=== PATIENT | male | born 1955 | race Two or more races ===

== ENCOUNTER 2017-03-21 13:05 | Day surgery (SDC) | payer OTHER ==
[2017-03-21] MEDS ORDERED: NS 500 ML IV ONE (13:06)
[2017-03-21] MEDS ORDERED: MIDAZOLAM 2 MG/2 ML VIAL IVP ONE (13:06)
[2017-03-21] MEDS ORDERED: BENZOCAINE UNIT DOSE SPRAY HURRICAINE MM ONE (13:06)
[2017-03-21] MEDS ORDERED: ATROPINE SULFATE 1 MG/10 ML SYR IVP ONE (13:06)
[2017-03-21] MEDS ORDERED: fentaNYL 100 MCG/2 ML INJ IVP ONE (13:06)
--- NOTE | 2017-03-21 13:26 | CPEKG ---
Heart Rate: 102 RR Interval: 588 QRSD Interval: 88 QT Interval: 356 QTC Interval: 464 QRS [place]: 27 T Wave [place]: 7 EKG Severity - ABNORMAL ECG - EKG Impression: ATRIAL FIBRILLATION, V-RATE 65-146 EKG Impression: PROBABLE INFERIOR INFARCT, AGE INDETERMINATE Electronically Signed By: Terrence Gupta 22-Mar-2017 10:23:57
--- NOTE | 2017-03-21 13:26 | CPEKG ---
Heart Rate: 102 RR Interval: 588 QRSD Interval: 88 QT Interval: 356 QTC Interval: 464 QRS [place]: 27 T Wave [place]: 7 EKG Severity - ABNORMAL ECG - EKG Impression: ATRIAL FIBRILLATION, V-RATE 65-146 EKG Impression: PROBABLE INFERIOR INFARCT, AGE INDETERMINATE Electronically Signed By: Terrence Gupta 22-Mar-2017 10:23:57
--- NOTE | 2017-03-21 13:26 | CPEKG ---
Heart Rate: 102 RR Interval: 588 QRSD Interval: 88 QT Interval: 356 QTC Interval: 464 QRS [place]: 27 T Wave [place]: 7 EKG Severity - ABNORMAL ECG - EKG Impression: ATRIAL FIBRILLATION, V-RATE 65-146 EKG Impression: PROBABLE INFERIOR INFARCT, AGE INDETERMINATE Electronically Signed By: eTrrence Gupta 22-Mar-2017 10:23:57
--- NOTE | 2017-03-21 14:17 | PDCARCONS ---
Cardiology Consult Reason for Consult: Atrial fibrillation. Chief Complaint: Fatigue/atrial fibrillation. Requesting Physician: Dr. Anabelle Winters. History of Present Illness: 61-year-old male who, at his baseline, is healthy. Major medical problems include obesity and GERD. He has had symptoms of fatigue now for about 2 weeks. This has been associated with a sensation of depression and doom. He has not had any chest pain or chest pressure. Earlier this week he had an EGD performed. During the procedure he was noted to be in atrial fibrillation with a rapid ventricular response. He was seen by internal medicine yesterday. He was started on metoprolol and Eliquis. This has improved his overall heart rate controlled although he continues to have symptoms of fatigue. As result, we were called. He was advised to come to the [facility] today. He states that he has not had any symptoms of orthopnea, PND or edema. He has had about a 35 lb weight loss over the last 6 months. This, at this point, is unexplained. Has no fever, chills or sweats. He has no history of obstructive sleep apnea although he has not tested in the past. For the most part he is sedentary. He does walk although has no regularly scheduled exercise program. He has had stress test although this was done about 10 years ago. History Information - Allergies/Home Medication List Allergies/Adverse Reactions: No Known Allergies Allergy (Unverified 03/21/17 13:43) Home Medications: NK [No Known Home Meds] 03/21/17 [Last Taken Unknown] Past Medical History: Obesity, GERD. - Social History Smoking Status: Never smoked Physical Exam Physical Exam: Constitutional: no apparent distress Eyes: PERRL Ears, Nose, Mouth, Throat: moist mucous membranes Cardiovascular: irregularly irregular, No no murmur, rub, or gallop, No systolic murmur, No diastolic murmur, No JVD Peripheral Pulses: 2+: carotid (R), carotid (L) Respiratory: no respiratory distress Gastrointestinal: normoactive bowel sounds, soft, non-tender abdomen Skin: warm Neurologic: AAOx3 Psychiatric: interacting appropriately Lab and Imaging 03/21/17 13:30 PT REJ 03/21/17 13:30 INR REJ 03/21/17 13:30 APTT REJ 03/21/17 13:30 Sodium 142 mEq/L (134-144) 03/21/17 13:30 Potassium 4.1 mEq/L (3.5-5.2) 03/21/17 13:30 Chloride 105 mEq/L (97-110) 03/21/17 13:30 Carbon Dioxide 25 mEq/l (22-31) 03/21/17 13:30 Anion Gap 12 mEq/L (8-16) 03/21/17 13:30 BUN 21 mg/dL (7-23) 03/21/17 13:30 Creatinine 1.2 mg/dL (0.7-1.3) 03/21/17 13:30 Estimated GFR > 60 03/21/17 13:30 Glucose 106 mg/dL (70-100) H 03/21/17 13:30 Calcium 9.5 mg/dL (8.5-10.4) 03/21/17 13:30 Magnesium 2.0 mg/dL (1.6-2.3) 03/21/17 13:30 Visualized and Interpreted Chest x-ray results: No Visualized and Interpreted EKG results: Yes EKG additional interpertation: Atrial fibrillation. Resting heart rate of 110 beats per minute. No ST or T changes. A/P Assessment: 61-year-old male with 2 month history of severe fatigue now found to be in atrial fibrillation initially with rapid ventricular response with more controlled heart rates since beginning metoprolol. He has, appropriately, been started on Eliquis. He has taken 3 doses. The exact contributing factors for his atrial fibrillation or not clear at the present time. He certainly is at high risk for obstructive sleep apnea. He has not had a baseline echocardiogram to exclude valvular heart disease. Plan: 1. We will plan to continue his current medications. 2. He will have a LAUREN/cardioversion today. 3. As an outpatient undergo an overnight oximetry study to evaluate for sleep apnea. 4. He will follow up with me within the next 2-3 weeks after his LAUREN/ cardioversion.
[2017-03-21] MEDS ORDERED: PROPOFOL 200 MG/20 ML VIAL ONE (14:27)
--- NOTE | 2017-03-21 14:40 | PDTEE1 ---
LAUREN Cardioversion Procedure Procedure: electrical cardioversion, transesophageal echo Indications: atrial fibrillation Anticoagulation: eliquis Procedural Details: Pads were placed in anterior-posterior position. LAUREN probe was advanced and standard images obtained. There is no evidence of left atrial or left atrial appendage thrombus. Synchronized cardioversion attempt #1: 200J Results: normal sinus rhythm Conclusions: successful LAUREN cardioversion
--- NOTE | 2017-03-21 14:49 | PDANEPAE ---
ANE History of Present Illness a fib ANE Past Medical History - Cardiovascular History Hx Hypertension: No Hx Arrhythmias: Yes Hx Chest Pain: No Hx Coronary Artery / Peripheral Vascular Disease: No Hx CHF / Valvular Disease: No Hx Palpitations: Yes - Pulmonary History Hx COPD: No Hx Asthma/Reactive Airway Disease: No Hx Recent Upper Respiratory Infection: No Hx Oxygen in Use at Home: No Hx Sleep Apnea: No ANE Review of Systems Review of Systems: ANE Patient History - Allergies Allergies/Adverse Reactions: No Known Allergies Allergy (Unverified 03/21/17 13:43) - Home Medications Home medications: home medication list seen and reviewed Home Medications: NK [No Known Home Meds] 03/21/17 [Last Taken Unknown] - Anes Hx Anes Hx: no prior problems - Smoking Hx Smoking Status: Never smoked ANE Labs/Vital Signs - Labs Result Diagrams: 03/21/17 13:30 - Vital Signs Height: 175.26 cm Weight: 102.512 kg ANE Physical Exam - Airway Neck exam: FROM, short neck Mallampati Score: Class 2 Mouth exam: normal dental/mouth exam - Pulmonary Pulmonary: no respiratory distress - Cardiovascular Cardiovascular: irregularly irregular - ASA Status ASA Status: III ANE Anesthesia Plan Anesthesia Plan: GA with mask Urgent/Emergent Case: [place] completed preop but documented later for safe timely pt care
--- NOTE | 2017-03-21 14:49 | POSTANESTH ---
Post Anesthetic Evaluation Cardiovascular Status: Normal, Stable Respiratory Status: Normal, Stable Level of Consciousness/Mental Status: Can Participate in Eval Pain Control: Adequate, Prn Tx Ordered Nausea/Vomiting Control: Adequate, Prn Tx Ordered Complications Possibly Related to Anesthesia: None Noted
--- NOTE | 2017-03-21 14:58 | CPEKG ---
Heart Rate: 53 RR Interval: 1132 P-R Interval: 188 QRSD Interval: 90 QT Interval: 484 QTC Interval: 455 P [place]: 11 QRS [place]: 22 T Wave [place]: 25 EKG Severity - ABNORMAL ECG - EKG Impression: SINUS RHYTHM EKG Impression: LEFT ATRIAL ABNORMALITY EKG Impression: PROBABLE INFERIOR INFARCT, OLD EKG Impression: CONSIDER POSTERIOR WALL INVOLVEMENT EKG Impression: SINUS RHYTHM HAS REPLACED ATRIAL FIBRILLATION NOTED ON PRIOR ECG Electronically Signed By: Terrence Gupta 22-Mar-2017 10:24:17
--- NOTE | 2017-03-22 13:30 | ECHO ---
[email or web address] [place] [id number] Main: [phone] Fax: Transesophageal Echocardiography Name: MAYRA DICKEY MR#: [id number] Study Date: 03/21/2017 Study Time: 02:24 PM Date of : 1955 Age: 61 year(s) Height: ( ) Weight: ( ) BSA: Gender: Male Examination: LAUREN Indication: pre-cardioversion; r/o clot Image Quality: Contrast: I.V. dose of agitated saline Requested by: Aman Graf Heart Rate: Rhythm: BP: / Procedure Staff Felt Finisher: Irena Vasquez Reading Physician: Aman Graf Requesting Provider: LAUREN Exam Details Contrast: I.V. dose of agitated saline Conclusions: The rhythm is atrial fibrillation. Left ventricle is normal in size. Moderate to severely reduced LV systolic function with an ejection fraction of 30-35% with global left ventricular hypokinesis. Severely dilated left atrium. Spontaneous echo contrast appreciated within the left atrium and left atrial appendage. No evidence of left atrial appendage thrombus. Normal right-sided chamber dimensions and RV function. Morphologically normal-appearing valvular structures. Mild mitral and tricuspid regurgitation. Intact interatrial septum. Immediately following the procedure the patient underwent cardioversion with successful lutheran of sinus rhythm following a single 200 joule shock. Measurements: Chambers Valvular Assessment AV/MV Valvular Assessment TV/PV Normal Normal Normal Name Value Range Name Value Range Name Value Range EF Range: 30-35 % Additional Measurements: Findings: Left Ventricle: Normal size left ventricle. Moderately reduced systolic LV function. The ejection fraction is estimated to be 30-35 %. Left Atrium: The left atrium is moderately to severely dilated. An agitated saline study was performed and was Patient: MAYRA DICKEY Study Date: 03/21/2017 Page 1 of 2 02:24 PM negative for intracardiac shunting. Spontaneous contrast in the left atrium. No thrombus is noted in the left atrium. Left Atrial Appendage: No thrombus in left appendage. Spontaneous contrast is present in the left atrial appendage. Mitral Valve: Mild mitral valve regurgitation is present. Aortic Valve: The aortic valve is tri-leaflet. There is no aortic valve regurgitation. Tricuspid Valve: Trivial to mild tricuspid valve regurgitation. l1n (No Signature Object) Patient: MAYRA DICKEY Study Date: 03/21/2017 Page 2 of 2 02:24 PM [id number]
--- NOTE | 2017-03-22 13:30 | ECHO ---
[email or web address] [place] [id number] Main: [phone] Fax: Transesophageal Echocardiography Name: MAYRA DICKEY MR#: [id number] Study Date: 03/21/2017 Study Time: 02:24 PM Date of : 1955 Age: 61 year(s) Height: ( ) Weight: ( ) BSA: Gender: Male Examination: LAUREN Indication: pre-cardioversion; r/o clot Image Quality: Contrast: I.V. dose of agitated saline Requested by: Aman Graf Heart Rate: Rhythm: BP: / Procedure Staff Front Desk Manager: Irena Vasquez Reading Physician: Aman Graf Requesting Provider: LAUREN Exam Details Contrast: I.V. dose of agitated saline Conclusions: The rhythm is atrial fibrillation. Left ventricle is normal in size. Moderate to severely reduced LV systolic function with an ejection fraction of 30-35% with global left ventricular hypokinesis. Severely dilated left atrium. Spontaneous echo contrast appreciated within the left atrium and left atrial appendage. No evidence of left atrial appendage thrombus. Normal right-sided chamber dimensions and RV function. Morphologically normal-appearing valvular structures. Mild mitral and tricuspid regurgitation. Intact interatrial septum. Immediately following the procedure the patient underwent cardioversion with successful mormonism of sinus rhythm following a single 200 joule shock. Measurements: Chambers Valvular Assessment AV/MV Valvular Assessment TV/PV Normal Normal Normal Name Value Range Name Value Range Name Value Range EF Range: 30-35 % Additional Measurements: Findings: Left Ventricle: Normal size left ventricle. Moderately reduced systolic LV function. The ejection fraction is estimated to be 30-35 %. Left Atrium: The left atrium is moderately to severely dilated. An agitated saline study was performed and was Patient: MAYRA DICKEY Study Date: 03/21/2017 Page 1 of 2 02:24 PM negative for intracardiac shunting. Spontaneous contrast in the left atrium. No thrombus is noted in the left atrium. Left Atrial Appendage: No thrombus in left appendage. Spontaneous contrast is present in the left atrial appendage. Mitral Valve: Mild mitral valve regurgitation is present. Aortic Valve: The aortic valve is tri-leaflet. There is no aortic valve regurgitation. Tricuspid Valve: Trivial to mild tricuspid valve regurgitation. l1n (No Signature Object) Patient: MAYRA DICKEY Study Date: 03/21/2017 Page 2 of 2 02:24 PM [id number]
--- NOTE | 2017-03-22 13:30 | ECHO ---
[email or web address] [place] [id number] Main: [phone] Fax: Transesophageal Echocardiography Name: MAYRA DICKEY MR#: [id number] Study Date: 03/21/2017 Study Time: 02:24 PM Date of : 1955 Age: 61 year(s) Height: ( ) Weight: ( ) BSA: Gender: Male Examination: LAUREN Indication: pre-cardioversion; r/o clot Image Quality: Contrast: I.V. dose of agitated saline Requested by: Aman Graf Heart Rate: Rhythm: BP: / Procedure Staff Quality Project Manager: Irena Vasquez Reading Physician: Aman Graf Requesting Provider: LAUREN Exam Details Contrast: I.V. dose of agitated saline Conclusions: The rhythm is atrial fibrillation. Left ventricle is normal in size. Moderate to severely reduced LV systolic function with an ejection fraction of 30-35% with global left ventricular hypokinesis. Severely dilated left atrium. Spontaneous echo contrast appreciated within the left atrium and left atrial appendage. No evidence of left atrial appendage thrombus. Normal right-sided chamber dimensions and RV function. Morphologically normal-appearing valvular structures. Mild mitral and tricuspid regurgitation. Intact interatrial septum. Immediately following the procedure the patient underwent cardioversion with successful jehovah's witness of sinus rhythm following a single 200 joule shock. Measurements: Chambers Valvular Assessment AV/MV Valvular Assessment TV/PV Normal Normal Normal Name Value Range Name Value Range Name Value Range EF Range: 30-35 % Additional Measurements: Findings: Left Ventricle: Normal size left ventricle. Moderately reduced systolic LV function. The ejection fraction is estimated to be 30-35 %. Left Atrium: The left atrium is moderately to severely dilated. An agitated saline study was performed and was Patient: MAYRA DICKEY Study Date: 03/21/2017 Page 1 of 2 02:24 PM negative for intracardiac shunting. Spontaneous contrast in the left atrium. No thrombus is noted in the left atrium. Left Atrial Appendage: No thrombus in left appendage. Spontaneous contrast is present in the left atrial appendage. Mitral Valve: Mild mitral valve regurgitation is present. Aortic Valve: The aortic valve is tri-leaflet. There is no aortic valve regurgitation. Tricuspid Valve: Trivial to mild tricuspid valve regurgitation. l1n (No Signature Object) Patient: MAYRA DICKEY Study Date: 03/21/2017 Page 2 of 2 02:24 PM [id number]
== END 2017-03-21 15:59 | disposition home or self-care (01) ==
LOC: FCATH 13:05
PROVIDERS: ATTEND Internal Medicine Cardiovascular Disease
PROC: 5A2204Z Restoration of Cardiac Rhythm, Single (ICD-10-PCS; principal; 2017-03-21)
PROC: B245ZZ4 Ultrasonography of Left Heart, Transesophageal (ICD-10-PCS; principal; 2017-03-21)
DX: I48.91 Unspecified atrial fibrillation (principal); R53.83 Other fatigue; K21.9 Gastro-esophageal reflux disease without esophagitis; E66.9 Obesity, unspecified; Z68.33 Body mass index [BMI] 33.0-33.9, adult
CPT/HCPCS: J0461; J2704

== ENCOUNTER 2017-03-22 11:43 | Observation (INO) | payer OTHER ==
--- NOTE | 2017-03-22 12:10 | EDPHY ---
H & P Time Seen by Provider: 03/22/17 11:45 HPI/ROS: CHIEF COMPLAINT: Chest pressure HISTORY OF PRESENT ILLNESS: 61-year-old male with a history of atrial fibrillation status post cardioversion yesterday presents with chest pressure. 2 days ago he was diagnosed with atrial fibrillation with RVR. He was placed on metoprolol and Eliquis. Yesterday he had a LAUREN and cardioversion by Dr. Graf. He felt normal after the procedure and throughout the evening yesterday. However, he woke up this morning and felt that he was in recurrent atrial fibrillation. He has similar symptoms to prior to the cardioversion, that includes chest pressure and feeling of wooziness and dizziness. He saw his primary care physician this morning. In the office his blood pressure was 90/60 and he was in atrial fibrillation with a controlled rate of 87. He was sent here for further evaluation. No food intake this morning. He had a couple sips of water only. REVIEW OF SYSTEMS: Constitutional: 35 lb weight loss recently, no fever Eyes: No visual changes ENT: No sore throat Respiratory: No cough, no shortness of breath Gastrointestinal: No nausea, no vomiting, no abdominal pain Genitourinary: No hematuria, no dysuria Musculoskeletal: No leg pain or swelling Skin: No rash Neurological: No headache Psychiatric: No depression Past Medical/Surgical History: Atrial fibrillation Social History: PCP: Dr. Amaya Smoking Status: Never smoked Physical Exam: General Appearance: Alert, pleasant Eyes: Pupils equal and round, no conjunctival pallor or injection ENT, Mouth: Mucous membranes moist Neck: Normal inspection Respiratory: Lungs are clear to auscultation Cardiovascular: irregularly irregular tachycardia Gastrointestinal: Abdomen is soft and nontender Neurological: A&O, nonfocal exam Skin: Warm and dry, no rash Extremities: trace pedal edema Psychiatric: Mood and affect normal Constitutional: Initial Vital Signs Temperature (C) 36.7 C 03/22/17 11:45 Heart Rate 93 03/22/17 11:45 Respiratory Rate 20 03/22/17 11:45 Blood Pressure 110/61 03/22/17 11:45 O2 Sat (%) 99 03/22/17 11:45 O2 Delivery Mode Room Air O2 (L/minute) 2 Allergies/Adverse Reactions: No Known Allergies Allergy (Verified 03/22/17 11:48) Home Medications: Medication Instructions Recorded Apixaban [Eliquis] 5 mg PO BID 03/22/17 Lisinopril [Zestril 5 mg (*)] 5 mg PO DAILY 03/22/17 Metoprolol Tartrate [Lopressor 25 50 mg PO BID 03/22/17 mg (*)] Medical Decision Making - Diagnostics EKG Interpretation: EKG interpreted by me reveals atrial fibrillation, ventricular rate 111, Q- waves in 3 and AVF. Imaging Results: Imaging Impressions Chest X-Ray 03/22/17 12:05 Impression: No acute pulmonary disease. ED Course/Re-evaluation: This patient presents with recurrent atrial fibrillation with RVR after recent cardioversion. Heart rate 90-130 on satellite project site monitor. EKG reveals atrial fibrillation, with a ventricular rate of 111. No ischemic changes. Doubt ACS. [facility] consulted. Seen in ED by ESTIVEN Molina with [facility]. Plan for IV Amiodarone and admission. Will consult, request hospitalist admission. consider eval for 35lb wt loss during this admission as well. Hospitalist service consulted. Dr. Fiore will admit this pt. Amiodarone IV initiated, pt' s HR 80-100, BP stable. Ativan 1mg IV given for anxiety. Pt stable throughout. Differential Diagnosis: Differential diagnosis includes though it is not limited to pneumonia, pneumothorax, pulmonary embolism, aortic dissection, pericarditis, acute coronary syndrome. - Data Points Laboratory Results: Laboratory Results 03/22/17 12:00 03/22/17 12:00 03/22/17 03/22/17 12:00 12:00 WBC 7.27 10^3/uL 10^3/uL (3.80-9.50) RBC 5.11 10^6/uL 10^6/uL (4.40-6.38) Hgb 16.6 g/dL g/dL (13.7-17.5) Hct 47.2 % % (40.0-51.0) MCV 92.4 fL fL (81.5-99.8) MCH 32.5 pg pg (27.9-34.1) MCHC 35.2 g/dL g/dL (32.4-36.7) RDW 13.4 % % (11.5-15.2) Plt Count 180 10^3/uL 10^3/uL (150-400) MPV 11.1 fL fL (8.7-11.7) Neut % (Auto) 76.3 % H % (39.3-74.2) Lymph % (Auto) 14.9 % L % (15.0-45.0) [place] % (Auto) 7.2 % % (4.5-13.0) Eos % (Auto) 0.8 % % (0.6-7.6) Baso % (Auto) 0.4 % % (0.3-1.7) Nucleat RBC Rel Count 0.0 % % (0.0-0.2) Absolute Neuts (auto) 5.55 10^3/uL 10^3/uL (1.70-6.50) Absolute Lymphs (auto) 1.08 10^3/uL 10^3/uL (1.00-3.00) Absolute Monos (auto) 0.52 10^3/uL 10^3/uL (0.30-0.80) Absolute Eos (auto) 0.06 10^3/uL 10^3/uL (0.03-0.40) Absolute Basos (auto) 0.03 10^3/uL 10^3/uL (0.02-0.10) Absolute Nucleated RBC 0.00 10^3/uL 10^3/uL (0-0.01) Immature Gran % 0.4 % % (0.0-1.1) Immature Gran # 0.03 10^3/uL 10^3/uL (0.00-0.10) Sodium 141 mEq/L mEq/L (134-144) Potassium 4.4 mEq/L mEq/L (3.5-5.2) Chloride 106 mEq/L mEq/L (97-110) Carbon Dioxide 20 mEq/l L mEq/l (22-31) Anion Gap 15 mEq/L mEq/L (8-16) BUN 17 mg/dL mg/dL (7-23) Creatinine 1.0 mg/dL mg/dL (0.7-1.3) Estimated GFR > 60 Glucose 115 mg/dL H mg/dL (70-100) Calcium 9.7 mg/dL mg/dL (8.5-10.4) Troponin I 0.013 ng/mL ng/mL (0.000-0.034) NT-Pro-B Natriuret Pep 779 pg/mL H pg/mL (0-125) Medications Given: Amiodarone HCl (Amiodarone Hcl) 200 mls @ 33.333 mls/hr IV ONCE ONE Stop: 03/22/17 18:33 Last Admin: 03/22/17 13:06 Dose: 200 mls Discontinued Medications Sodium Chloride (Ns) 500 mls @ 1,000 mls/hr IV EDNOW ONE PRN Reason: Protocol Stop: 03/22/17 12:42 Last Admin: 03/22/17 12:20 Dose: 500 mls Sodium Chloride (Ns) 500 mls @ 0 mls/hr IV ONCE ONE PRN Reason: Wide Open Stop: 03/22/17 12:14 Last Admin: 03/22/17 12:20 Dose: Not Given Amiodarone HCl (Amiodarone Hcl) 100 mls @ 600 mls/hr IV ONCE ONE Stop: 03/22/17 12:42 Last Admin: 03/22/17 12:54 Dose: 100 mls Lorazepam (Ativan) 1 mg PO EDNOW ONE Stop: 03/22/17 12:33 Last Admin: 03/22/17 12:52 Dose: 1 mg Departure - Departure Disposition: [facility]
--- NOTE | 2017-03-22 12:10 | CPEKG ---
Heart Rate: 111 RR Interval: 541 QRSD Interval: 86 QT Interval: 368 QTC Interval: 500 QRS [place]: 22 T Wave [place]: 13 EKG Severity - ABNORMAL ECG - EKG Impression: ATRIAL FIBRILLATION EKG Impression: PROBABLE INFERIOR INFARCT, AGE INDETERMINATE EKG Impression: PROLONGED QT INTERVAL Electronically Signed By: Marilu Serna 22-Mar-2017 14:11:05
[2017-03-22] MEDS ORDERED: NS 500 ML IV ONE ×4 (12:13)
[2017-03-22 12:22] LABS: PLATELET COUNT 180 10^3/uL (150-400)
[2017-03-22] MEDS ORDERED: LORazepam 1 MG TAB PO ONE ×2 (12:32)
[2017-03-22] MEDS ORDERED: AMIODARONE HCL 100 ML IV ONE ×2 (12:33)
[2017-03-22] MEDS ORDERED: AMIODARONE HCL 200 ML IV ONE ×2 (12:34)
--- NOTE | 2017-03-22 14:08 | PDCARPN ---
Cardiology Progress Note Chief Complaint: Patient reporting fatigue, lightheadedness. Assessment/Plan: Assessment: Please see Dr. Graf's cardiology consultation note dated 03/21/2017 to be used as our official consultation. 61-year-old male with significant past history that includes obesity, GERD, and ongoing abdominal pain for last 2 months with reported 35 lb weight loss over the last 6 months. Reporting episodes of fatigue with associated symptoms of depression due for her on 2 months. He denies of any history of chest pressure or pain. Patient had been at [facility] on March 19 for EGD. Was noted that he had atrial fibrillation with rapid ventricular response. He had been seen by Dr. Winters at [facility], who had set patient up on beta-blockers , anticoagulation, and set him up for a cardioversion with Dr. Graf yesterday afternoon. LAUREN performed prior to cardioversion, showing LV normal size, moderate to severely reduced systolic function with EF 30-35%, with global LV hypokinesis. Noted severely dilated LA, no evidence of thrombus noted. Normal RV size and dimension, mild MR and TR, intact intra-atrial septum. Patient was successfully cardioverted, with 200 joules, back into sinus rhythm. For his cardiomyopathy, he remained on beta-marco metoprolol tartrate, and Dr. Graf started on lisinopril with scheduled soon follow-up. Patient informs me today, post cardioversion, he felt significantly better, also noting his appetite had improved. Unfortunately, at 5:00 a.m. this morning , waking up with recurring fatigue symptoms, he did take all his medications including new dose of lisinopril. And had been noting lightheadedness. Denies of any near-syncope or syncopal events. Was seen by his PCP, Dr Amaya, after calling in with his symptoms. Was found again to be in atrial fibrillation with ventricular rates varying between 80-130 BPM. It was also noted that his systolic blood pressure was in the low 90s. Patient also reporting decrease in appetite. He reports no nausea, diaphoresis, orthopnea, chest pain, or syncope. Does report mild shortness of breath with exertion. Electrocardiogram on emergency department admission showing showing atrial fibrillation, noted Q-waves in the lead III. This is unchanged from a electrocardiogram prior to his cardioversion done yesterday. Laboratory studies drawn today show troponin level of 0.013 and BNP of 779. He does not appear to be fluid overloaded off my physical examination. Patient has had a recent TSH level drawn on March 19 which was 1.230. LFTs were also within normal limits except total bilirubin which was 1.5. No anemia noted on admission CBC. Plan: 1. Persistent atrial fibrillation: Less than 24 hour status post cardioversion , reverting back into atrial fibrillation with RVR. With discussion of Dr. Graf, recent LAUREN showing no thrombus in atrium, we will have the patient be loaded with IV amiodarone today, if he does not convert overnight, then plan for a cardioversion in the morning. Patient does report that he has been compliant with his anticoagulation since his cardioversion yesterday. He will continue on current Eliquis. Risks and benefits of anticoagulation therapy with amiodarone were explained to the patient and his family, patient verbalizes understanding and is wanting to proceed. Is successful, in keeping him in sinus rhythm, we will plan for him to be on dosage for approximately 3-6 months. Also, with patient's body habitus, consideration for overnight oximetry study for evaluation sleep apnea should be done. This can be done as an outpatient. We will make him NPO after midnight him preparation for procedure if necessary. 2. Cardiomyopathy: LAUREN yesterday showing global hypokinesis with EF of 30-35%. He had been on beta-marco in just recently started WAI-inhibitor. His low ejection fraction is probably due to tachycardia from his atrial fibrillation. Again, we will attempt to convert him back into sinus rhythm, at some point it would be beneficial for him to have stress testing done for evaluation of possible ischemia. Due to high hypotension, we will discontinue his lisinopril at this time, but attempt to continue him on beta-marco of metoprolol. 3. Hypotensive: Noted at PCPs office this morning with systolic at in the 90s , on emergency department admission, systolic 110. As mentioned above, will discontinue his lisinopril. He has been given 500 mL of saline in the emergency department. Will continue to monitor. 4. Abdominal pain: Patient has recently underwent upper EGD at [facility], results are pending. Per Dr. Serna of the emergency department , patient's PCP is concerned and would like this further evaluated during his hospitalization. Patient will be also seen by hospital services. We will plan on following along with you. 11/03/17 14:05 Subjective: Patient denies of any chest pressure or pain, reports no orthopnea, PND, edema, near-syncope or syncopal events. Reviewed/Discussed With: other (Dr Graf and Dr Serna) Objective: Vital Signs (8 Hrs) Temp Pulse Resp BP Pulse Ox 03/22/17 13:51 36.8 C 69 17 105/65 99 03/22/17 13:30 96 18 118/76 100 Intake/Output (24 Hrs) 03/21/17 03/22/17 03/23/17 05:59 05:59 05:59 Other: Weight 102.5 kg Result Diagrams: 03/22/17 12:00 03/22/17 12:00 - Physical Exam Constitutional: no apparent distress, obese Ears, Nose, Mouth, Throat: moist mucous membranes Cardiovascular: no murmurs, no rubs, no gallops, irregularly irregular (AFib with ventricular rate in 80s.), jugular vein distention (4 cm above sternal notch at a 45 degree angle.), pulses symmetric bilat, No carotid bruit Peripheral Pulses: 1+: dorsalis-pedis (R), dorsalis-pedis (L), 2+: carotid (R), carotid (L) Respiratory: other (Lungs are clear but diminished in bases bilateral, no rhonchi, rales, or wheezing noted, no accessory muscle use, no intercostal muscle retraction noted.) Gastrointestinal: normoactive bowel sounds Skin: no rashes, warm, no edema Neurologic: AAOx3 Psychiatric: cooperative, following commands, anxious ICD10 Worksheet Patient Problems: Problems Problem Status Onset Atrial fibrillation Acute - ICD10 Problem Qualifiers (1) Atrial fibrillation
[2017-03-22] MEDS ORDERED: ACETAMINOPHEN 325 MG TAB PO PRN ×2 (14:48)
[2017-03-22] MEDS ORDERED: ONDANSETRON 4 MG/2 ML VIAL IVP PRN ×2 (14:48)
[2017-03-22] MEDS ORDERED: ONDANSETRON DISINTEGRATING 4 MG TAB PO PRN ×2 (14:48)
[2017-03-22] MEDS ORDERED: LORazepam 0.5 MG TAB PO PRN ×2 (14:48)
--- NOTE | 2017-03-22 15:49 | GHP ---
[f rep st] HISTORY AND PHYSICAL DATE OF ADMISSION: 03/22/2017 CHIEF COMPLAINT: Atrial fibrillation. HISTORY OF PRESENT ILLNESS: This is a 61-year-old man who sent in by his PCP for eval of AFib. He has had long-standing abdominal issues which I will detail later. However, this led him to an EGD on March 19. He was found to be in AFib. Sent to see his PCP who started him on metoprolol as well as Eliquis. He was sent for an outpatient cardioversion which was done yesterday by Dr. Graf. This was successful after 200 joules. LAUREN showed an EF of 30% to 35%. This was thought to be due to his tachycardia. He was started on appropriate medicines for this and discharged. He re-presents today after being sent in by his PCP and found again to be in atrial fibrillation. He had some chest heaviness this morning which is improved now. He received some Ativan in the ED. He has had abdominal issues which started earlier in January, which have received some evaluation to this point. Described as difficulty eating due to belching associated with food. He does not really throw up. He has not had any diarrhea. He has some abdominal pain which is diffuse and gassy in nature. This led him to receive an upper endoscopy a few days ago. I do not have the report from the endoscopy. However, I do have his pathology from this. There was a polyp in his duodenum which was biopsied and showed no evidence of dysplasia or malignancy. Second biopsy showed increased intraepithelial lymphocytes with preserved villous architecture. Stomach biopsy showed mild chronic inflammation with moderate reactive changes. It was H pylori negative. He has also seen an ENT doctor for sinus congestion. He had received some antibiotics which did not resolve this. He has tried various nasal sprays. It seems as though he has had the most luck with fluticasone. Laryngoscopy showed an edematous larynx. ENT's recommendation was to take ranitidine. PAST MEDICAL/SURGICAL HISTORY: 1. AFib as above. 2. Cardiomyopathy as above. 3. Abdominal issues as above. 4. Obesity. MEDICATIONS: Please see medication reconciliation. ALLERGIES: There are no known drug allergies. SOCIAL HISTORY: He has never drank alcohol or smoked. FAMILY HISTORY: Reviewed and unremarkable. REVIEW OF SYSTEMS: A 10-point review of systems is conducted and is negative except per HPI. PHYSICAL EXAM: VITAL SIGNS: Blood pressure 105/65, respiration rate 17, heart rate 69-96, saturating 99% on 2 L. Temperature 36.8. GENERAL: The patient is pleasant. He appears somewhat tired lying in bed, in no acute distress. HEENT : Normocephalic, atraumatic. He has no pharyngeal erythema. CARDIOVASCULAR: Irregularly, irregular. There are no murmurs, rubs, or gallops. PULMONARY: Breathing comfortably. Lungs are clear to auscultation bilaterally. ABDOMEN: Soft, nontender, nondistended in all 4 quadrants. He has normal bowel sounds. SKIN: No rash. : No Becerra. NEUROLOGIC: Alert and oriented x3. He is nonfocal. PSYCHIATRIC: Normal mood and affect LABORATORY DATA: CBC is unremarkable. Bicarb is 20. Troponin 0.013. BNP is 779. DATA: 1. Chest x-ray, which I personally viewed and interpreted, shows normal-sized heart. There is nothing acute. 2. ECG, which I personally viewed and interpreted, shows atrial fibrillation. He has a large Q-wave in lead III. He does not have Q-waves, however, in II and F. IMPRESSION AND PLAN: 1. Atrial fibrillation: Cardiology following. He is on amiodarone drip and Eliquis. If he converts overnight, no further action will be taken. If he does not convert, then he will receive DC cardioversion tomorrow morning. 2. Cardiomyopathy: Thought to be tachycardia related. We will defer further workup to Cardiology. He is on beta marco, WAI inhibitor. He is euvolemic. 3. Abdominal issues: Biopsy most consistent with celiac. He does not have any diarrhea, however. I think CAT scan is appropriate, given the polyp seen in his duodenum. Also ordered a celiac panel. We will add simethicone as needed, given his primary complaint of belching and gas. Will continue Pepcid, although he is on ranitidine at home. 4. Sinus issues: Will give him a trial of Zyrtec as well as Atrovent inhaler. CODE STATUS: Full. /[id number]/MODL MTDD
[2017-03-22] MEDS ORDERED: IOPAMIDOL (ISOVUE-300) 100 ML BTL ONE ×2 (16:10)
[2017-03-22] MEDS: CETIRIZINE 10 MG TAB PO SCH ×2 (17:34)
[2017-03-22] MEDS: IPRATROPIUM 0.03% NASAL SPRAY EACHNARE SCH ×4 (17:35→22:43)
[2017-03-22] MEDS: SIMETHICONE 80 MG TAB CHEW PO SCH ×4 (18:48→21:39)
[2017-03-22] MEDS ORDERED: AMIODARONE HCL 540 MG in D5W 300 ML IV ONE (19:00)
[2017-03-22] MEDS ORDERED: IPRATROPIUM 0.03% NASAL SPRAY EACHNARE SCH ×2 (21:00)
[2017-03-22] MEDS: METOPROLOL TARTRATE 25 MG TAB PO SCH ×2 (21:39)
[2017-03-22] MEDS: APIXABAN 5 MG TAB PO SCH ×2 (21:39)
[2017-03-22] MEDS: FAMOTIDINE 20 MG TAB PO SCH ×2 (21:39)
[2017-03-23 05:03] LABS: PLATELET COUNT 154 10^3/uL (150-400)
[2017-03-23] MEDS ORDERED: NS 1,000 ML IV ONE ×2 (06:00)
[2017-03-23] MEDS ORDERED: ATROPINE SULFATE 1 MG/10 ML SYR IVP ONE ×2 (06:00)
[2017-03-23 06:17] LABS: INR 1.71 (0.83-1.16); PROTIME(PATIENT) 20.1 SEC (12.0-15.0)
[2017-03-23 08:39] VITALS: TEMP 97.6; O2SAT 98
[2017-03-23] MEDS: SIMETHICONE 80 MG TAB CHEW PO SCH ×4 (08:43→13:26)
[2017-03-23] MEDS: METOPROLOL TARTRATE 25 MG TAB PO SCH ×2 (08:43)
[2017-03-23] MEDS: CETIRIZINE 10 MG TAB PO SCH ×2 (08:43)
[2017-03-23] MEDS: APIXABAN 5 MG TAB PO SCH ×2 (08:43)
[2017-03-23] MEDS: FAMOTIDINE 20 MG TAB PO SCH ×2 (08:44)
[2017-03-23] MEDS ORDERED: PANTOPRAZOLE SODIUM 40 MG TAB PO SCH ×2 (09:00)
[2017-03-23] MEDS ORDERED: PROPOFOL 200 MG/20 ML VIAL ONE ×2 (11:28)
--- NOTE | 2017-03-23 11:31 | PDCARPN ---
Cardiology Progress Note Chief Complaint: No complaints overnight Assessment/Plan: Assessment: Patient is a 61 y/o male with history of atrial fibrillation, non ischaemic CMP (thought secondary to atrial fibrillation with ejection fraction of 30-35% by most recent LAUREN), obesity, and GERD, but no documented history of HTN, HLP, CAD , or DM, who presents back to [facility] in atrial fibrillation once again. Recent cardioversion was momentarily successful, but given the revisitation of atrial fibrillation, Amiodarone load was implemented. Patient without complaints - no chest pains or pressure, no PND or orthopnea. Patient stating that he is "...feeling pretty good today...". Plans were for patient to have cardioversion again today (with the anticoagulation and antiarrhythmic therapy on board). Plan: (1) Completion of the Amiodarone load - would start PO therapy (200 mg twice per day) (2) Maintain therapy on Eliquis ([id number] score is 2) given recent LAUREN with cardioversion (and pending cardioversion today) (3) Lopressor should continue for HTN and rate control assistance for the noted atrial fibrillation (4) Outpatient follow up with cardiology is recommended - would consider repeat echocardiogram in several weeks (if patient able to maintain sinus rhythm) Subjective: No cardiovascular complaints Reviewed/Discussed With: family, hospitalist, multidisciplinary team Objective: Vital Signs (8 Hrs) Temp Pulse Resp BP Pulse Ox 03/23/17 08:00 36.4 C 86 17 103/73 98 03/23/17 04:00 36.3 C 63 18 104/64 96 Intake/Output (24 Hrs) 03/22/17 03/23/17 03/24/17 05:59 05:59 04:59 Intake Total 1183.6 Balance 1183.6 Intake: Oral (ml) 750 IV Infused (ml) 433.6 Amiodarone HCl 100 ml @ 100 600 mls/hr IV ONCE ONE Rx #:[id number] Amiodarone HCl 200 ml @ 333.6 33.333 mls/hr IV ONCE ONE Rx#:[id number] Other: Weight 102.5 kg Number of Voids Toilet 2 Result Diagrams: 03/23/17 04:08 03/23/17 04:08 Telemetry: atrial fibrillation with controlled ventricular response Echocardiogram: LVEF 30-35% - Physical Exam Constitutional: WDWN, healthy appearing, no apparent distress Eyes: PERRL, EOMI Ears, Nose, Mouth, Throat: moist mucous membranes Cardiovascular: irregularly irregular Peripheral Pulses: 2+: dorsalis-pedis (R), dorsalis-pedis (L) Respiratory: clear to auscultate bilat, no crackles, no wheezes Gastrointestinal: normoactive bowel sounds Skin: no rashes, no edema Musculoskeletal: no muscular tenderness Neurologic: AAOx3, CN II-XII grossly intact Psychiatric: cooperative, interactive, following commands ICD10 Worksheet Patient Problems: Problems Problem Status Onset Atrial fibrillation Acute
--- NOTE | 2017-03-23 11:31 | PDCARPN ---
Cardiology Progress Note Chief Complaint: No complaints overnight Assessment/Plan: Assessment: Patient is a 61 y/o male with history of atrial fibrillation, non ischaemic CMP (thought secondary to atrial fibrillation with ejection fraction of 30-35% by most recent LAUREN), obesity, and GERD, but no documented history of HTN, HLP, CAD , or DM, who presents back to [facility] in atrial fibrillation once again. Recent cardioversion was momentarily successful, but given the revisitation of atrial fibrillation, Amiodarone load was implemented. Patient without complaints - no chest pains or pressure, no PND or orthopnea. Patient stating that he is "...feeling pretty good today...". Plans were for patient to have cardioversion again today (with the anticoagulation and antiarrhythmic therapy on board). Plan: (1) Completion of the Amiodarone load - would start PO therapy (200 mg twice per day) (2) Maintain therapy on Eliquis ([id number] score is 2) given recent LAUREN with cardioversion (and pending cardioversion today) (3) Lopressor should continue for HTN and rate control assistance for the noted atrial fibrillation (4) Outpatient follow up with cardiology is recommended - would consider repeat echocardiogram in several weeks (if patient able to maintain sinus rhythm) Subjective: No cardiovascular complaints Reviewed/Discussed With: family, hospitalist, multidisciplinary team Objective: Vital Signs (8 Hrs) Temp Pulse Resp BP Pulse Ox 03/23/17 08:00 36.4 C 86 17 103/73 98 03/23/17 04:00 36.3 C 63 18 104/64 96 Intake/Output (24 Hrs) 03/22/17 03/23/17 03/24/17 05:59 05:59 04:59 Intake Total 1183.6 Balance 1183.6 Intake: Oral (ml) 750 IV Infused (ml) 433.6 Amiodarone HCl 100 ml @ 100 600 mls/hr IV ONCE ONE Rx #:[id number] Amiodarone HCl 200 ml @ 333.6 33.333 mls/hr IV ONCE ONE Rx#:[id number] Other: Weight 102.5 kg Number of Voids Toilet 2 Result Diagrams: 03/23/17 04:08 03/23/17 04:08 Telemetry: atrial fibrillation with controlled ventricular response Echocardiogram: LVEF 30-35% - Physical Exam Constitutional: WDWN, healthy appearing, no apparent distress Eyes: PERRL, EOMI Ears, Nose, Mouth, Throat: moist mucous membranes Cardiovascular: irregularly irregular Peripheral Pulses: 2+: dorsalis-pedis (R), dorsalis-pedis (L) Respiratory: clear to auscultate bilat, no crackles, no wheezes Gastrointestinal: normoactive bowel sounds Skin: no rashes, no edema Musculoskeletal: no muscular tenderness Neurologic: AAOx3, CN II-XII grossly intact Psychiatric: cooperative, interactive, following commands ICD10 Worksheet Patient Problems: Problems Problem Status Onset Atrial fibrillation Acute
--- NOTE | 2017-03-23 11:31 | PDCARPN ---
Cardiology Progress Note Chief Complaint: No complaints overnight Assessment/Plan: Assessment: Patient is a 61 y/o male with history of atrial fibrillation, non ischaemic CMP (thought secondary to atrial fibrillation with ejection fraction of 30-35% by most recent LAUREN), obesity, and GERD, but no documented history of HTN, HLP, CAD , or DM, who presents back to [facility] in atrial fibrillation once again. Recent cardioversion was momentarily successful, but given the revisitation of atrial fibrillation, Amiodarone load was implemented. Patient without complaints - no chest pains or pressure, no PND or orthopnea. Patient stating that he is "...feeling pretty good today...". Plans were for patient to have cardioversion again today (with the anticoagulation and antiarrhythmic therapy on board). Plan: (1) Completion of the Amiodarone load - would start PO therapy (200 mg twice per day) (2) Maintain therapy on Eliquis ([id number] score is 2) given recent LAUREN with cardioversion (and pending cardioversion today) (3) Lopressor should continue for HTN and rate control assistance for the noted atrial fibrillation (4) Outpatient follow up with cardiology is recommended - would consider repeat echocardiogram in several weeks (if patient able to maintain sinus rhythm) Subjective: No cardiovascular complaints Reviewed/Discussed With: family, hospitalist, multidisciplinary team Objective: Vital Signs (8 Hrs) Temp Pulse Resp BP Pulse Ox 03/23/17 08:00 36.4 C 86 17 103/73 98 03/23/17 04:00 36.3 C 63 18 104/64 96 Intake/Output (24 Hrs) 03/22/17 03/23/17 03/24/17 05:59 05:59 04:59 Intake Total 1183.6 Balance 1183.6 Intake: Oral (ml) 750 IV Infused (ml) 433.6 Amiodarone HCl 100 ml @ 100 600 mls/hr IV ONCE ONE Rx #:[id number] Amiodarone HCl 200 ml @ 333.6 33.333 mls/hr IV ONCE ONE Rx#:[id number] Other: Weight 102.5 kg Number of Voids Toilet 2 Result Diagrams: 03/23/17 04:08 03/23/17 04:08 Telemetry: atrial fibrillation with controlled ventricular response Echocardiogram: LVEF 30-35% - Physical Exam Constitutional: WDWN, healthy appearing, no apparent distress Eyes: PERRL, EOMI Ears, Nose, Mouth, Throat: moist mucous membranes Cardiovascular: irregularly irregular Peripheral Pulses: 2+: dorsalis-pedis (R), dorsalis-pedis (L) Respiratory: clear to auscultate bilat, no crackles, no wheezes Gastrointestinal: normoactive bowel sounds Skin: no rashes, no edema Musculoskeletal: no muscular tenderness Neurologic: AAOx3, CN II-XII grossly intact Psychiatric: cooperative, interactive, following commands ICD10 Worksheet Patient Problems: Problems Problem Status Onset Atrial fibrillation Acute
--- NOTE | 2017-03-23 11:32 | PDANEPAE ---
ANE History of Present Illness 61 yo for dccv afib ef 35% ANE Past Medical History - Cardiovascular History Hx Hypertension: No Hx Arrhythmias: Yes Hx Chest Pain: No Hx Coronary Artery / Peripheral Vascular Disease: No Hx CHF / Valvular Disease: No Hx Palpitations: Yes - Pulmonary History Hx COPD: No Hx Asthma/Reactive Airway Disease: No Hx Recent Upper Respiratory Infection: No Hx Oxygen in Use at Home: No Hx Sleep Apnea: No - Endocrine History Hx Diabetes: No - Chronic Pain History Chronic Pain: No ANE Review of Systems Review of Systems: ANE Patient History - Allergies Allergies/Adverse Reactions: No Known Allergies Allergy (Verified 03/22/17 11:48) - Home Medications Home medications: home medication list seen and reviewed Home Medications: Apixaban [Eliquis] 5 mg PO BID 03/22/17 [Last Taken 03/22/17] Lisinopril [Zestril 5 mg (*)] 5 mg PO DAILY 03/22/17 [Last Taken 03/22/17] Metoprolol Tartrate [Lopressor 25 mg (*)] 50 mg PO BID 03/22/17 [Last Taken 08/03] - Anes Hx Anes Hx: no prior problems - Smoking Hx Smoking Status: Never smoked ANE Labs/Vital Signs - Labs Result Diagrams: 03/23/17 04:08 03/23/17 04:08 - Vital Signs Blood Pressure: 103/73 Heart Rate: 86 Respiratory Rate: 17 O2 Sat (%): 98 Height: 5 ft 9 in Weight: 102.5 kg ANE Anesthesia Plan Anesthesia Plan: GA with mask Total IV Anesthesia: Yes
--- NOTE | 2017-03-23 11:52 | PDCARD ---
Cardioversion Procedure Procedure: Cardioversion (recent LAUREN with cardioversion did not document thrombus, and the patient has been on uninterrupted anticoagulant therapy since this procedure) Indications: atrial fibrillation, cardiomyopathy Consent: signed and in chart Anticoagulation: [email or web address] Procedural Details: Pads were placed to anterior and posterior chest. Monitor with heart rate, oximetry, and blood pressure pre-, kip-, and post cardioversion. Nursing staff , respiratory, and anesthesia were present for the procedure. Anesthesia was used for sedation. Synchronized cardioversion attempt #1: 200J Results: normal sinus rhythm Conclusions: successful cardioversion Patient Problems: Problems Problem Status Onset Atrial fibrillation Acute
--- NOTE | 2017-03-23 11:57 | CPEKG ---
Heart Rate: 42 RR Interval: 1429 P-R Interval: 196 QRSD Interval: 102 QT Interval: 548 QTC Interval: 458 P [place]: 4 QRS [place]: 28 T Wave [place]: 22 EKG Severity - BORDERLINE ECG - EKG Impression: SINUS BRADYCARDIA EKG Impression: PROBABLE LEFT ATRIAL ABNORMALITY EKG Impression: SINUS BRADYCARDIA HAS REPLACED ATRIAL FIBRILLATION NOTED ON PRIOR ECG Electronically Signed By: Terrence Gupta 24-Mar-2017 09:46:09
--- NOTE | 2017-03-23 11:57 | CPEKG ---
Heart Rate: 42 RR Interval: 1429 P-R Interval: 196 QRSD Interval: 102 QT Interval: 548 QTC Interval: 458 P [place]: 4 QRS [place]: 28 T Wave [place]: 22 EKG Severity - BORDERLINE ECG - EKG Impression: SINUS BRADYCARDIA EKG Impression: PROBABLE LEFT ATRIAL ABNORMALITY EKG Impression: SINUS BRADYCARDIA HAS REPLACED ATRIAL FIBRILLATION NOTED ON PRIOR ECG Electronically Signed By: Terrence Gupta 24-Mar-2017 09:46:09
[2017-03-23] MEDS ORDERED: AMIODARONE HCL 200 MG TAB PO SCH ×2 (12:00)
[2017-03-23] MEDS: IPRATROPIUM 0.03% NASAL SPRAY EACHNARE SCH ×4 (12:09→17:12)
--- NOTE | 2017-03-23 12:09 | ASMTCASEMG ---
Living Arrangements What is your living Answers: Unknown arrangement? Who do you live with? Type Of Residence What kind of residence do Answers: House you live in? Case Management Evaluation Functional: Able to Answers: Yes return Home with Prior Level of Function/Care Discharge Plan Comments Coordination Status Comments Notes: Patient to have a cardioversion today 03/23/2017 in room. Will wait to see how he does and progresses. Patient will most likely discharge today, Saturday or Saturday. Case management will continue to follow. Date Signed: 03/23/2017 12:08 PM Electronically Signed By:REGINA Carias
--- NOTE | 2017-03-23 15:03 | GDS ---
[f rep st] DISCHARGE SUMMARY FINAL DIAGNOSES: 1. Atrial fibrillation with rapid ventricular response. Status post DC cardioversion. 2. Nonspecific gastrointestinal issues. 3. Hypertension. 4. Sinus congestion. HOSPITAL COURSE: A 61-year-old man who was admitted with atrial fibrillation with RVR. He has been undergoing workup recently for GI issues including an upper endoscopy. This showed some lymphocytic infiltration in his small intestine concerning for celiac. Celiac panel was sent and is pending at t he time of discharge. He underwent DC cardioversion. After this his GI issues markedly improved. He also underwent an IV amiodarone load. He will be discharged on amiodarone 200 mg p.o. twice daily, metoprolol 25 mg p.o. twice daily and Eliquis 5 mg p.o. twice daily. He had an abdominal CT scan, which showed nonspecific bowel gas pattern, question gastroenteritis. LABORATORY DATA: Labs pending at time of discharge: Celiac panel. NEW MEDICATIONS: 1. Amiodarone. 2. Atrovent for sinus congestion. 3. Decrease in dose of his metoprolol. FOLLOWUP: 1. Dr. Amaya is PCP. 2. Cardiology for ongoing management of his atrial fibrillation. Copy requested to: Dr. Blayne Silva [facility] #: [id number]
[2017-03-23] MEDS ORDERED: PNEUMOCOCCAL 0.5ML VACCINE VIAL IM ONE ×2 (15:20)
[2017-03-23] MEDS ORDERED: FLU VACC QS 2017-18 (3YR+)/PF 0.5 ML SYR (FLUARIX QUAD) IM ONE ×2 (15:20)
[2017-03-23 15:30] VITALS: BP 92/62; PULSE 56; RESP 18
--- NOTE | 2017-03-24 16:40 | ASDISCHSUM ---
Discharge Information Plan Status:Home with No Needs Medically Cleared to Leave:03/23/2017 Discharge Date:03/23/2017 04:54 PM CM D/C Disposition:Home, Routine, Self-Care ADT D/C Disposition:Home, Routine, Self-Care Projected Discharge Date:03/23/2017 12:00 AM Transportation at D/C:Family Discharge Delay Reason: Follow-Up Date:03/23/2017 12:00 AM Discharge Slot: Final Diagnosis:AFIB with RVR Placement Information Patient Contact Information Contact Name:EMELIA Relationship: Address:[address] Work Phone: City:[place] Alternate Phone: State/Zip Code:[place] [address] Email: Financial Information Financial Class:HMO and PPO Plans Primary Plan Desc:[employer] Primary Plan Number:[id number] Secondary Plan Desc: Secondary Plan Number: Assessment Information [facility] Initial CM Assessment Living Arrangements What is your living Answers: Unknown arrangement? Who do you live with? Type Of Residence What kind of residence do Answers: House you live in? Case Management Evaluation Functional: Able to Answers: Yes return Home with Prior Level of Function/Care Discharge Plan Comments Coordination Status Comments Notes: Patient to have a cardioversion today 03/23/2017 in room. Will wait to see how he does and progresses. Patient will most likely discharge today, Saturday or Saturday. Case management will continue to follow. Date Signed: 03/23/2017 12:08 PM Electronically Signed By:REGINA Carais Intervention Information
--- NOTE | 2017-03-24 16:40 | ASDISCHSUM ---
Discharge Information Plan Status:Home with No Needs Medically Cleared to Leave:03/23/2017 Discharge Date:03/23/2017 04:54 PM CM D/C Disposition:Home, Routine, Self-Care ADT D/C Disposition:Home, Routine, Self-Care Projected Discharge Date:03/23/2017 12:00 AM Transportation at D/C:Family Discharge Delay Reason: Follow-Up Date:03/23/2017 12:00 AM Discharge Slot: Final Diagnosis:AFIB with RVR Placement Information Patient Contact Information Contact Name:EMELIA Relationship: Address:[address] Work Phone: City:[place] Alternate Phone: State/Zip Code:[place] [address] Email: Financial Information Financial Class:HMO and PPO Plans Primary Plan Desc:[employer] Primary Plan Number:[id number] Secondary Plan Desc: Secondary Plan Number: Assessment Information [facility] Initial CM Assessment Living Arrangements What is your living Answers: Unknown arrangement? Who do you live with? Type Of Residence What kind of residence do Answers: House you live in? Case Management Evaluation Functional: Able to Answers: Yes return Home with Prior Level of Function/Care Discharge Plan Comments Coordination Status Comments Notes: Patient to have a cardioversion today 03/23/2017 in room. Will wait to see how he does and progresses. Patient will most likely discharge today, Saturday or Saturday. Case management will continue to follow. Date Signed: 03/23/2017 12:08 PM Electronically Signed By:REGINA Carias Intervention Information
--- NOTE | 2017-03-24 16:40 | ASDISCHSUM ---
Discharge Information Plan Status:Home with No Needs Medically Cleared to Leave:03/23/2017 Discharge Date:03/23/2017 04:54 PM CM D/C Disposition:Home, Routine, Self-Care ADT D/C Disposition:Home, Routine, Self-Care Projected Discharge Date:03/23/2017 12:00 AM Transportation at D/C:Family Discharge Delay Reason: Follow-Up Date:03/23/2017 12:00 AM Discharge Slot: Final Diagnosis:AFIB with RVR Placement Information Patient Contact Information Contact Name:EMELIA Relationship: Address:[address] [facility] Work Phone: City:[place] Alternate Phone: State/Zip Code:[place] [address] Email: Financial Information Financial Class:HMO and PPO Plans Primary Plan Desc:[employer] Primary Plan Number:[id number] Secondary Plan Desc: Secondary Plan Number: Assessment Information [facility] Initial CM Assessment Living Arrangements What is your living Answers: Unknown arrangement? Who do you live with? Type Of Residence What kind of residence do Answers: House you live in? Case Management Evaluation Functional: Able to Answers: Yes return Home with Prior Level of Function/Care Discharge Plan Comments Coordination Status Comments Notes: Patient to have a cardioversion today 03/23/2017 in room. Will wait to see how he does and progresses. Patient will most likely discharge today, Saturday or Saturday. Case management will continue to follow. Date Signed: 03/23/2017 12:08 PM Electronically Signed By:REGINA Carias Intervention Information
== END 2017-03-23 16:54 | disposition home or self-care (01) ==
LOC: F2W 13:36
PROVIDERS: ADMIT Student in an Organized Health Care Education/Training Program; ATTEND Student in an Organized Health Care Education/Training Program
PROC: 5A2204Z Restoration of Cardiac Rhythm, Single (ICD-10-PCS; principal; 2017-03-22)
DX: I48.1 Persistent atrial fibrillation (principal); I43 Cardiomyopathy in diseases classified elsewhere; Z79.01 Long term (current) use of anticoagulants; E66.09 Other obesity due to excess calories; Z68.33 Body mass index [BMI] 33.0-33.9, adult; J32.9 Chronic sinusitis, unspecified; K21.9 Gastro-esophageal reflux disease without esophagitis; I10 Essential (primary) hypertension; Z23 Encounter for immunization
CPT/HCPCS: 71020; 74177; 90471; 93005; G0378; 82784-90; 83516-90; 96365; 96366; G0008; G0009; J0282; J2704; Q9967

== ENCOUNTER 2017-03-24 17:41 | Inpatient (IN) | payer OTHER ==
--- NOTE | 2017-03-24 18:07 | CPEKG ---
Heart Rate: 112 RR Interval: 536 QRSD Interval: 88 QT Interval: 368 QTC Interval: 503 QRS [place]: 38 T Wave [place]: 8 EKG Severity - ABNORMAL ECG - EKG Impression: ATRIAL FIBRILLATION EKG Impression: PROBABLE INFERIOR INFARCT, AGE INDETERMINATE EKG Impression: PROLONGED QT INTERVAL Electronically Signed By: Claudia Stewart 24-Mar-2017 21:48:24
[2017-03-24] MEDS ORDERED: DILTIAZEM 25 MG/5 ML VIAL IVP ONE (18:17)
[2017-03-24] MEDS ORDERED: NS 500 ML IV ONE (18:17)
--- NOTE | 2017-03-24 18:21 | EDPHY ---
H & P Stated Complaint: HX AFIB/CARDIOVERSION YESTERDAY/RECURRENCE POST DISCHARGE Time Seen by Provider: 03/24/17 17:55 HPI/ROS: CHIEF COMPLAINT: Atrial fibrillation, nausea, lightheadedness HISTORY OF PRESENT ILLNESS: This is a 61-year-old male who was diagnosed with atrial fibrillation for the 1st time 6 days ago. Patient has had cardioversion x2 , 4 days ago, and again 2 days ago. He had been admitted to the hospital 2 days ago and was discharged yesterday. He was cardioverted yesterday. He currently is on metoprolol as well as amiodarone. He describes developing what he thinks is atrial fibrillation again today around 1 o'clock in the afternoon. Patient reports that he does not tolerate atrial fibrillation at all. He complains of nausea, some lightheadedness, generally feeling poorly, and being anxious. Patient spoke to Dr. Dickinson, from Cardiology, who advised to take an additional dose of metoprolol which he did. Patient denies other associated symptoms. No chest pain, shortness of breath, vomiting, diarrhea, urinary complaints, headache, syncope. REVIEW OF SYSTEMS: Aside from elements discussed in the HPI, a comprehensive 10-point review of systems was reviewed and is negative. PAST MEDICAL HISTORY: Atrial fibrillation. SOCIAL HISTORY: Nonsmoker, no alcohol. Here with his family. VITAL SIGNS Reviewed by me. GENERAL: Well-developed, well-nourished, anxious, reports being nauseous. HEENT: Atraumatic. Eyes: No icterus, no injection. Mouth: Slightly dry lips. No erythema or lesions. Neck: supple with no adenopathy. LUNGS: Clear to auscultation bilaterally, no wheezes, rhonchi or rales. CARDIAC: irregularly irregular, mild tachycardia. No rubs murmurs or gallops. ABDOMEN: Soft, nontender, nondistended, bowel sounds normal. BACK: No CVA tenderness. EXTREMITIES: No trauma. No edema. Range of motion is normal throughout. NEURO: Alert and oriented, grossly nonfocal. SKIN: Warm and dry, no rash. PSYCHIATRIC: Normal mentation, no agitation. Anxious. - Personal History Current Tetanus/Diphtheria Vaccine: Yes - Medical/Surgical History Hx Asthma: No Hx Chronic Respiratory Disease: No Hx Diabetes: No Hx Cardiac Disease: Yes Hx Renal Disease: No Hx Cirrhosis: No Hx Alcoholism: No Hx HIV/AIDS: No Hx Splenectomy or Spleen Trauma: No Other PMH: AFIB - Social History Smoking Status: Never smoked Constitutional: Initial Vital Signs Temperature (C) 36.8 C 03/24/17 17:45 Heart Rate 110 H 03/24/17 17:45 Respiratory Rate 22 H 03/24/17 17:45 Blood Pressure 122/89 H 03/24/17 17:45 O2 Sat (%) 98 03/24/17 17:45 O2 Delivery Mode Nasal Cannula O2 (L/minute) 2 Allergies/Adverse Reactions: No Known Allergies Allergy (Verified 03/24/17 17:44) Home Medications: Medication Instructions Recorded Apixaban [Eliquis] 5 mg PO BID 03/22/17 Lisinopril [Zestril 5 mg (*)] 5 mg PO DAILY 03/22/17 Amiodarone HCl [Pacerone (*)] 200 mg PO BID #60 tab 03/23/17 Cetirizine [ZyrTEC 10 mg (*)] 10 mg PO DAILY #30 03/23/17 Ipratropium 0.03% Nasal [Atrovent 2 sprays EACHNARE TID #1 mdi 03/23/17 0.03% Nasal (*)] Metoprolol Tartrate [Lopressor 25 25 mg PO BID #60 tab 03/23/17 mg (*)] Simethicone [Mylicon] 80 mg PO PCHS #30 tab.chew 03/23/17 Medical Decision Making - Diagnostics EKG Interpretation: 12-LEAD EKG: Please see the full report in [facility]. My interpretation: Atrial fibrillation, rate 112. ED Course/Re-evaluation: 61-year-old gentleman presenting to the emergency department with primary complaint of atrial fibrillation. He has been cardioverted twice in last week but has been unable to remain in sinus rhythm. Currently has a heart rate in 112. Atrial flutter is also noted on the monitor. Patient received a small dose of diltiazem, 10 mg IV, which allowed his rate to be well controlled. At the time of this dictation is heart rate of 76 with blood pressure 126/84. Course was discussed with Dr. Dickinson from Cardiology. Patient to remain NPO Will be cardioverted in the morning. Will admit to the hospital service. Differential Diagnosis: Differential diagnoses for the patient's sensation of palpitations was considered including but not limited to sinus tachycardia, PACs, PVCs, SVT, atrial fibrillation, atrial flutter, anxiety, panic attack. Consult/Admit Bed Type: Dr Salmon, [facility] - Data Points Laboratory Results: Laboratory Results 03/24/17 18:40 03/24/17 18:15 03/24/17 03/24/17 18:40 18:15 WBC 8.28 10^3/uL 10^3/uL (3.80-9.50) RBC 4.80 10^6/uL 10^6/uL (4.40-6.38) Hgb 15.3 g/dL g/dL (13.7-17.5) Hct 44.6 % % (40.0-51.0) MCV 92.9 fL fL (81.5-99.8) MCH 31.9 pg pg (27.9-34.1) MCHC 34.3 g/dL g/dL (32.4-36.7) RDW 13.4 % % (11.5-15.2) Plt Count 150 10^3/uL 10^3/uL (150-400) MPV 10.4 fL fL (8.7-11.7) Neut % (Auto) 75.1 % H % (39.3-74.2) Lymph % (Auto) 14.5 % L % (15.0-45.0) [place] % (Auto) 8.2 % % (4.5-13.0) Eos % (Auto) 1.2 % % (0.6-7.6) Baso % (Auto) 0.5 % % (0.3-1.7) Nucleat RBC Rel Count 0.0 % % (0.0-0.2) Absolute Neuts (auto) 6.22 10^3/uL 10^3/uL (1.70-6.50) Absolute Lymphs (auto) 1.20 10^3/uL 10^3/uL (1.00-3.00) Absolute Monos (auto) 0.68 10^3/uL 10^3/uL (0.30-0.80) Absolute Eos (auto) 0.10 10^3/uL 10^3/uL (0.03-0.40) Absolute Basos (auto) 0.04 10^3/uL 10^3/uL (0.02-0.10) Absolute Nucleated RBC 0.00 10^3/uL 10^3/uL (0-0.01) Immature Gran % 0.5 % % (0.0-1.1) Immature Gran # 0.04 10^3/uL 10^3/uL (0.00-0.10) Sodium 141 mEq/L mEq/L (134-144) Potassium 3.9 mEq/L mEq/L (3.5-5.2) Chloride 107 mEq/L mEq/L (97-110) Carbon Dioxide 19 mEq/l L D mEq/l (22-31) Anion Gap 15 mEq/L mEq/L (8-16) BUN 17 mg/dL mg/dL (7-23) Creatinine 1.0 mg/dL mg/dL (0.7-1.3) Estimated GFR > 60 Glucose 101 mg/dL H mg/dL (70-100) Calcium 9.4 mg/dL mg/dL (8.5-10.4) Total Bilirubin 1.7 mg/dL H mg/dL (0.1-1.4) Conjugated Bilirubin 0.2 mg/dL mg/dL (0.0-0.5) Unconjugated Bilirubin 1.5 mg/dL H mg/dL (0.0-1.1) AST 26 IU/L IU/L (17-59) ALT 52 IU/L IU/L (21-72) Alkaline Phosphatase 81 IU/L IU/L (38-126) Troponin I 0.015 ng/mL ng/mL (0.000-0.034) Total Protein 6.4 g/dL g/dL (6.3-8.2) Albumin 4.2 g/dL g/dL (3.5-5.0) Lipase 294 IU/L IU/L (23-300) Medications Given: Discontinued Medications Diltiazem HCl (Cardizem 25 Mg/5 Ml Vial) 10 mg IVP EDNOW ONE Stop: 03/24/17 18:18 Last Admin: 03/24/17 18:30 Dose: 10 mg Sodium Chloride (Ns) 500 mls @ 1,000 mls/hr IV EDNOW ONE PRN Reason: Protocol Stop: 03/24/17 18:46 Last Admin: 03/24/17 18:30 Dose: 500 mls Departure - Departure Disposition: [facility] Inpatient Acute Clinical Impression: Palpitations, Atrial fibrillation and flutter, Nausea Condition: Good Referrals: Eddie Amaya MD [Primary Care Provider] - As per Instructions
[2017-03-24 18:49] LABS: PLATELET COUNT 150 10^3/uL (150-400)
[2017-03-24] MEDS ORDERED: ACETAMINOPHEN 325 MG TAB PO PRN (19:23)
[2017-03-24] MEDS ORDERED: ONDANSETRON DISINTEGRATING 4 MG TAB PO PRN (19:23)
[2017-03-24] MEDS ORDERED: ONDANSETRON 4 MG/2 ML VIAL IVP PRN (19:23)
[2017-03-24] MEDS ORDERED: DILTIAZEM 125 MG in D5W 125 ML IV SCH (19:30)
[2017-03-24] MEDS ORDERED: APIXABAN 5 MG TAB PO SCH (22:36)
--- NOTE | 2017-03-24 23:48 | GHP ---
[f rep st] HISTORY AND PHYSICAL DATE OF ADMISSION: 03/24/2017 CHIEF COMPLAINT: Weakness and lightheadedness. HISTORY OF PRESENT ILLNESS: A 61-year-old male with a recent diagnosis of atrial fibrillation with rapid ventricular response, who was hospitalized on 07/2016 with similar complaints. The patient underwent cardioversion and was discharged home yesterday on anticoagulation. The patient reports returning home and feeling well for short period of time when he redeveloped a sensation of weakness and lightheadedness, therefore, called for Cardiology followup and was instructed to return to the emergency department for evaluation. In the ED , patient is denying chest pain, endorses a lightheaded unsteady feeling and an overall fatigue with weakness. Denies any shortness of breath. Denies any nausea, vomiting. Tolerated his lunch meal without complication. Denies diarrhea, dysuria, hematuria, lower extremity edema. PAST MEDICAL HISTORY: 1. Atrial fibrillation with rapid ventricular response, status post DC cardioversion. 2. Hypertension. 3. Chronic sinus congestion. 4. Dyspepsia. SOCIAL HISTORY: The patient denies tobacco, alcohol, or illicit drugs. FAMILY HISTORY: Positive for an aunt and a cousin with atrial fibrillation. ADVANCED DIRECTIVES: Patient is full cor, full tube. His would be his medical decision maker. REVIEW OF SYSTEMS: A 10-point review of systems is negative with the exception of that reported in the HPI. PHYSICAL EXAMINATION: VITAL SIGNS: Blood pressure 101/86, heart rate 124, respiratory rate 22, saturating 98% on room air, 36.8. GENERAL: This is an obese male lying flat in bed. HEENT: Notable for dry mucous membranes. EYES: Negative for any icterus. CARDIAC: Patient is regular rate and rhythm on my auscultation. PULMONARY: Clear to auscultation bilaterally. GASTROINTESTINAL : The patient is obese. Positive bowel sounds. Soft and nontender. MUSCULOSKELETAL: Negative for any lower extremity edema. SKIN: Negative for any rashes. NEUROLOGIC: Patient is alert and oriented x3. PSYCHIATRIC: He is cooperative on interview and examination. DATA: EKG, which I personally reviewed and interpreted, shows atrial fibrillation with a rapid ventricular response. Normal axis. No acute ST-T changes. LABORATORY: White count 8.2, hematocrit 44.6, platelet count of 150. Creatinine 1.0, sodium 141, bicarb 19, TSH 1.84 checked yesterday. ASSESSMENT AND PLAN: This is a 61-year-old male, presenting with atrial fibrillation with rapid ventricular response. 1. Atrial fibrillation with rapid ventricular response. The patient is being admitted. Initiated on a diltiazem drip for rate control. He will be continued on his Eliquis anticoagulation. Will make the patient n.p.o. in anticipation of repeat cardioversion by Cardiology in the morning. The patient was initiated on amiodarone, which will continue. Expect he will be seen by Electrophysiology tomorrow. 2. Obesity. The patient denies any significant weight loss or weight gain recently. TSH is normal. 3. Hypertension. The patient is on outpatient lisinopril. I am going to hold this overnight, as his blood pressures are soft on the diltiazem drip. Need additional room for rate control. 4. Prophylaxis. Patient is on Eliquis. DIET: N.p.o. for potential cardioversion in the morning. DISPOSITION: Expecting greater than 2 midnights, as patient is presenting with recurrent atrial fibrillation with RVR, which is symptomatic requiring Cardiology evaluation, potential repeat DC cardioversion and/or discussions related to ablation. I have discussed the case with the emergency room physician. Patient will be triaged to the PCU for cardiac monitoring and a diltiazem drip. /[id number]/MODL MTDD
[2017-03-25] MEDS: APIXABAN 5 MG TAB PO SCH ×2 (03:18→08:47)
[2017-03-25] MEDS: IPRATROPIUM 0.03% NASAL SPRAY EACHNARE SCH ×2 (08:48→16:04)
[2017-03-25] MEDS: SIMETHICONE 80 MG TAB CHEW PO SCH ×3 (08:49→16:57)
[2017-03-25] MEDS ORDERED: LISINOPRIL 5 MG TAB PO SCH (09:00)
[2017-03-25] MEDS ORDERED: APIXABAN 5 MG TAB PO SCH (09:00)
[2017-03-25] MEDS ORDERED: CETIRIZINE 10 MG TAB PO SCH (09:00)
[2017-03-25] MEDS ORDERED: METOPROLOL TARTRATE 25 MG TAB PO SCH (09:00)
[2017-03-25] MEDS ORDERED: AMIODARONE HCL 200 MG TAB PO SCH (09:00)
[2017-03-25] MEDS ORDERED: ATROPINE SULFATE 1 MG/10 ML SYR IVP ONE (09:38)
--- NOTE | 2017-03-25 10:13 | PDMN ---
Medical Necessity Medical necessity: Patient meets INPT criteria per physician note and [facility] M- 510 Supraventricular Arrhythmia (onset of lightheadedness/unsteadiness/fatigue/ weakness and found to be in atrial fib w/RVR; will likely require repeat cardioversion as patient just discharged yest on anticoagulation after cardioversion for similar complaints. Anticipate LOS > 2 midnights as is NPO awaiting likely cardioversion, on diltiazem IV gtt, lisinopril held for mild hypotension.)
--- NOTE | 2017-03-25 10:13 | PDMN ---
Medical Necessity Medical necessity: Patient meets INPT criteria per physician note and [facility] M- 510 Supraventricular Arrhythmia (onset of lightheadedness/unsteadiness/fatigue/ weakness and found to be in atrial fib w/RVR; will likely require repeat cardioversion as patient just discharged yest on anticoagulation after cardioversion for similar complaints. Anticipate LOS > 2 midnights as is NPO awaiting likely cardioversion, on diltiazem IV gtt, lisinopril held for mild hypotension.)
--- NOTE | 2017-03-25 10:13 | PDMN ---
Medical Necessity Medical necessity: Patient meets INPT criteria per physician note and [facility] M- 510 Supraventricular Arrhythmia (onset of lightheadedness/unsteadiness/fatigue/ weakness and found to be in atrial fib w/RVR; will likely require repeat cardioversion as patient just discharged yest on anticoagulation after cardioversion for similar complaints. Anticipate LOS > 2 midnights as is NPO awaiting likely cardioversion, on diltiazem IV gtt, lisinopril held for mild hypotension.)
[2017-03-25] MEDS ORDERED: AMIODARONE HCL 150 MG in D5W 100 ML IV ONE (11:00)
[2017-03-25] MEDS ORDERED: AMIODARONE A.FIB-18HR INFSN (ORDER 3/3) IV ONE (11:00)
[2017-03-25] MEDS ORDERED: AMIODARONE A.FIB-LOAD DOSE(ORDER 1/3) IV ONE (11:00)
--- NOTE | 2017-03-25 12:14 | GCON ---
[f rep st] CONSULTATION CHIEF COMPLAINT: Feeling poorly. HISTORY OF PRESENT ILLNESS: The patient was admitted to the hospital with atrial fibrillation. He was calling the physicians yesterday about his atrial fibrillation, and the recommendation was stella t he take increased beta marco. He has been cardioverted twice in the last 5 days and his cardiove rsions are not lasting. He was put on p.o. amiodarone. He has no chest pain, jaw pain, arm pain. No pleuritic chest pain. No orthopnea, PND, dyspnea on ex ertion, fever, chills, cough, nausea, vomiting. No hemoptysis. No sputum production. No rigors. He is feeling just terrible any time he has atrial fibrillation, and that bothers him a great deal. He is discouraged that his atrial fibrillation has not been resolved and does not stay cardioverted. But he has no chest pain, jaw pain. He has no neurologic symptoms. He is on full anticoagulation an d is not bleeding. CARDIAC RISK FACTORS: Positive for hypertension. His cardiac risk factors are positive for obesity. Cardiac risk factors are negative for prior known coronary disease, family history of premature coron kel artery disease, diabetes mellitus, hyperlipidemia, hyperuricemia. REVIEW OF SYSTEMS: A 12-point review of systems negative except as noted in this record and in the r ecord itself. He is known to have atrial fibrillation. He has had 2 cardioversions recently. His has had an ablation successfully with Dr. Weinberg, and he would like to see Dr. Weinberg. He has hypertension that has been well controlled. He has chronic sinus issues and he can get heartburn occasionally, but that is not an issue right now . SOCIAL HISTORY: He lives with his . He does not smoke or drink significant amounts of alcohol. He is not very active when he has atrial fibrillation. FAMILY HISTORY: No family history of premature coronary disease. No history of unexplained sudden d eath at a young age in the family. MEDICATIONS: Listed in the reconciliation page. PHYSICAL EXAMINATION: VITAL SIGNS: Blood pressure 110/77, heart rate 75, respiratory rate 15. Hear t rate today was 82, had been 94 earlier today, and yesterday was 75. He is afebrile. GENERAL: He is looking comfortable in a hospital bed and very cooperative. HEENT: Pupils equal and reactive. M ucous membranes of mouth moist. NECK: Supple. CARDIOVASCULAR: S1, S2. Soft systolic murmur, left sternal border. Irregularly irregular heartbeat. PULMONARY: Rhonchi. No rales, wheezing, or dull ness. CVA: No tenderness. ABDOMEN: Soft, nontender, without masses. EXTREMITIES: No edema, infl ammation or ulceration. NEUROLOGIC: Cranial nerves 2-12 grossly normal. Motor and sensory intact. SKIN: Age-related changes. PSYCH: No obvious anxiety or depression. LABORATORY DATA: White count 8.26, hematocrit 44, platelets are 150. Sodium 143, potassium 3.9, chl oride 110, BUN 13, creatinine 0.9, glucose 100. Troponin 0.015. Lipase negative. Electrocardiogram shows atrial fibrillation, possible inferior infarction. ASSESSMENT AND PLAN: 1. Atrial fibrillation. 2. Hypertension. 3. Obesity. I have spent a good deal of time talking to him about the options. He is very disappointed that he i s staying in atrial fibrillation and going out of sinus rhythm as quickly as he is. I have recommend ed that he follow up with the electrophysiology service, and Electrophysiology talked to him yesterda y and recommended that he just increase his rate control and get an appointment with Dr. Weinberg, who he and the family are very attached to, and he would like to consider an ablation. However, the patien t was anxious, said he felt too poorly just sitting around with atrial fibrillation and wanted to com e into the hospital, so that is what he did. I do not see any evidence of an acute event that is tri ggering things. There is no significant infection. There is no sign of pulmonary embolic disease. There is no sign of other causes of pulmonary hypertension right now. There is nothing changing abou t him. He has no significant heart failure, diastolic or systolic. He is taking his full anticoagul ation and, at this point, he wants cardioversion again. He is concerned it will not last, and I told him that there is a very good chance it will not last and that we can just go with medical therapy, but he wants to try cardioversion, so we have added amiodarone with an IV bolus and we are going to g arash a total of 6 hours of the 24-hour drip and we will try a cardioversion again today at his request . He is aware of the risk of cardioversions to include stroke. He is not going to have a transesophage al echocardiogram at this point in time point in time because he has been fully anticoagulated and mayo d multiple transesophageal echocardiograms. He is not missing any of his anticoagulation doses whats oever and does not want to proceed with anything but the cardioversion. He knows the risk of stroke. He knows the risk of sudden , need for CPR, or possibly even a pac emaker, and he knows that I do not have great lou this will, in fact, impact on his problem, and th at what he needs is further evaluation with the electrophysiology service. He understands all that a nd wants to proceed. 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 His questions have been answered and he is certainly at risk of coronary disease and he can be follow ed up and evaluated for that as an outpatient, but he has no symptoms of that whatsoever at this time . /[id number]/MODL
--- NOTE | 2017-03-25 12:29 | ASMTCMCOM ---
CM Note CM Note Notes: Reviewed chart and discussed w/RN. Pt was readmitted after having cardioversion and dc'ing home on 03/23. Anticipate dc home w/ when medically stable. Date Signed: 03/25/2017 12:28 PM Electronically Signed By:Brenda Thomas RN
[2017-03-25] MEDS ORDERED: ATROPINE SULFATE 1 MG/10 ML SYR ONE (13:34)
--- NOTE | 2017-03-25 14:04 | PDANEPAE ---
ANE History of Present Illness afib ANE Past Medical History - Cardiovascular History Hx Hypertension: No Hx Arrhythmias: Yes Hx Chest Pain: No Hx Coronary Artery / Peripheral Vascular Disease: No Hx CHF / Valvular Disease: No Hx Palpitations: Yes - Pulmonary History Hx COPD: No Hx Asthma/Reactive Airway Disease: No Hx Recent Upper Respiratory Infection: No Hx Oxygen in Use at Home: No Hx Sleep Apnea: No - Endocrine History Hx Diabetes: No - Chronic Pain History Chronic Pain: No ANE Review of Systems Review of Systems: ANE Patient History - Allergies Allergies/Adverse Reactions: No Known Allergies Allergy (Verified 03/24/17 17:44) - Home Medications Home Medications: Apixaban [Eliquis] 5 mg PO BID 03/22/17 [Last Taken 03/24/17] Lisinopril [Zestril 5 mg (*)] 5 mg PO DAILY 03/22/17 [Last Taken 03/24/17] - Smoking Hx Smoking Status: Never smoked ANE Labs/Vital Signs - Labs Result Diagrams: 03/24/17 18:40 03/25/17 05:42 - Vital Signs Blood Pressure: 104/67 Heart Rate: 79 Respiratory Rate: 18 O2 Sat (%): 98 Height: 175.26 cm Weight: 102.512 kg ANE Physical Exam - Airway Neck exam: FROM Mallampati Score: Class 2 Mouth exam: normal dental/mouth exam - Pulmonary Pulmonary: no respiratory distress - Cardiovascular Cardiovascular: regular rate and rhythym - ASA Status ASA Status: III ANE Anesthesia Plan Total IV Anesthesia: Yes
[2017-03-25] MEDS ORDERED: PROPOFOL 200 MG/20 ML VIAL ONE ×2 (14:05→14:21)
--- NOTE | 2017-03-25 15:40 | CPIP ---
[f rep st] INVASIVE CARDIAC PROCEDURE DATE OF PROCEDURE: 03/25/2017 PROCEDURE: The patient gave informed consent for transesophageal echocardiogram and a cardioversion. He understood the risks and the options. His case is complicated in that he has had 2 cardioversio ns in less than a week and come back to atrial fibrillation already twice and so, going into it, I to ld him that it is a very good chance he will just revert back to atrial fibrillation if we can even c ardiovert him. We did the transesophageal echocardiogram without any complications. He gave informe d consent. Anesthesia was present. Probe was passed without any difficulty and the patient appears to have a significant amount of smoke in the left atrium and there appeared to be a clot present poss ibly in the left atrial appendage. I reviewed the films from a transesophageal echocardiogram done 5 days ago, and it appeared to me that there was more smoke at this point in time and that there was p erhaps more clot crossing the left atrial appendage. Doppler velocities were low on both studies and quite low today. For these reasons, the worsening in my opinion and very significant amount of sludge or smoke present and the question of a clot in the left atrial appendage, I elected not to cardiovert this patient wh o is entirely stable and has been in the hospital since yesterday with the highest heart rate being 1 10 with his atrial fibrillation and he has only been on Eliquis since last week, so I think that he n eeds continued full anticoagulation. Continue medical management and we will increase his metoprolol dose and he is going to follow up with electrophysiology later in the week. There is no medical ind ication to keep him in the hospital at this point in time, as he has rate controlled atrial fibrillat ion without heart failure or any findings of significant other cardiovascular issues such as an acute coronary syndrome, etc. I have discussed this with the hospitalist. I have discussed it with the patient and all his question s have been answered. /[id number]/MODL
[2017-03-25 17:03] VITALS: BP 122/79; PULSE 106; RESP 16; TEMP 98.1; O2SAT 96
--- NOTE | 2017-03-25 18:41 | GDS ---
[f rep st] DISCHARGE SUMMARY DIAGNOSES: 1. Paroxysmal atrial fibrillation, symptomatic. 2. Hypertension. 3. Chronic sinus congestion. 4. Epistaxis. 5. Dyspepsia. CONSULTATIONS: Dr. Javon Somers, Cardiology. PROCEDURES DONE: LAUREN cardioversion: LAUREN revealed smoke and possible clot. Cardioversion not done. HOSPITAL COURSE: The patient is a 61-year-old with recent diagnosis of atrial fibrillation. This is symptomatic with some GI symptoms. He came in with increasing heart rate and was admitted and place d on a diltiazem drip. He was seen by Cardiology, who did a LAUREN that revealed some smoke for possibl e clot, so he was not cardioverted. His metoprolol was increased from 25 b.i.d. to 50 b.i.d. He preston l be continued on amiodarone. He plans on following up with Dr. Weinberg to set up an ablation. In the meantime, he will continue Eliquis, amiodarone and metoprolol as previously prescribed. These medica tions were discussed with Dr. Somers prior to discharge. DISCHARGE MEDICATIONS: Please see discharge med reconciliation form. FOLLOWUP: Dr. Weinberg this week at [facility]. He can call [facility] with any concerns or quest ions this week prior to his clinic visit. /[id number]/MODL
--- NOTE | 2017-03-25 18:41 | GDS ---
[f rep st] DISCHARGE SUMMARY DIAGNOSES: 1. Paroxysmal atrial fibrillation, symptomatic. 2. Hypertension. 3. Chronic sinus congestion. 4. Epistaxis. 5. Dyspepsia. CONSULTATIONS: Dr. Javon Somers, Cardiology. PROCEDURES DONE: LAUREN cardioversion: LAUREN revealed smoke and possible clot. Cardioversion not done. HOSPITAL COURSE: The patient is a 61-year-old with recent diagnosis of atrial fibrillation. This is symptomatic with some GI symptoms. He came in with increasing heart rate and was admitted and place d on a diltiazem drip. He was seen by Cardiology, who did a LAUREN that revealed some smoke for possibl e clot, so he was not cardioverted. His metoprolol was increased from 25 b.i.d. to 50 b.i.d. He preston l be continued on amiodarone. He plans on following up with Dr. Weinberg to set up an ablation. In the meantime, he will continue Eliquis, amiodarone and metoprolol as previously prescribed. These medica tions were discussed with Dr. Somers prior to discharge. DISCHARGE MEDICATIONS: Please see discharge med reconciliation form. FOLLOWUP: Dr. Weinberg this week at [facility]. He can call [facility] with any concerns or quest ions this week prior to his clinic visit. /[id number]/MODL
--- NOTE | 2017-03-26 09:48 | ECHO ---
[email or web address] [place] [id number] Main: [phone] Fax: Transesophageal Echocardiography Name: MYARA DICKEY MR#: [id number] Study Date: 03/25/2017 Study Time: 02:19 PM Date of : 1955 Age: 61 year(s) Height: ( ) Weight: ( ) BSA: Gender: Male Examination: LAUREN Indication: Atrial Fibrillation Image Quality: Contrast: Requested by: Heart Rate: Rhythm: BP: / Procedure Staff Chemistry Technician: Reading Physician: Javon Somers Requesting Provider: Conclusions: Spontaneous contrast in the left atrium. Spontaneous contrast is present in the left atrial appendage. Cardioversion cancelled at this time due to slow flow state.. Measurements: Chambers Valvular Assessment AV/MV Valvular Assessment TV/PV Normal Normal Normal Name Value Range Name Value Range Name Value Range Additional Measurements: Findings: Left Atrium: Spontaneous contrast in the left atrium. . Left Atrial Appendage: Spontaneous contrast is present in the left atrial appendage. Exam Comments: Cardioversion cancelled at this time due to slow flow state.. l1n (No Signature Object) Patient: MAYRA DICKEY Study Date: 03/25/2017 Page 1 of 2 02:19 PM Patient: MAYRA DICKEY Study Date: 03/25/2017 Page 2 of 2 02:19 PM [id number]
--- NOTE | 2017-03-26 09:48 | ECHO ---
[email or web address] [place] [id number] Main: [phone] Fax: Transesophageal Echocardiography Name: MAYRA DICKEY MR#: [id number] Study Date: 03/25/2017 Study Time: 02:19 PM Date of : 1955 Age: 61 year(s) Height: ( ) Weight: ( ) BSA: Gender: Male Examination: LAUREN Indication: Atrial Fibrillation Image Quality: Contrast: Requested by: Heart Rate: Rhythm: BP: / Procedure Staff Accounts Supervisor: Reading Physician: Javon Somers Requesting Provider: Conclusions: Spontaneous contrast in the left atrium. Spontaneous contrast is present in the left atrial appendage. Cardioversion cancelled at this time due to slow flow state.. Measurements: Chambers Valvular Assessment AV/MV Valvular Assessment TV/PV Normal Normal Normal Name Value Range Name Value Range Name Value Range Additional Measurements: Findings: Left Atrium: Spontaneous contrast in the left atrium. . Left Atrial Appendage: Spontaneous contrast is present in the left atrial appendage. Exam Comments: Cardioversion cancelled at this time due to slow flow state.. l1n (No Signature Object) Patient: MAYRA DICKEY Study Date: 03/25/2017 Page 1 of 2 02:19 PM Patient: MAYRA DICKEY Study Date: 03/25/2017 Page 2 of 2 02:19 PM [id number]
--- NOTE | 2017-03-26 09:48 | ECHO ---
[email or web address] [place] [id number] Main: [phone] Fax: Transesophageal Echocardiography Name: MAYRA DICKEY MR#: [id number] Study Date: 03/25/2017 Study Time: 02:19 PM Date of : 1955 Age: 61 year(s) Height: ( ) Weight: ( ) BSA: Gender: Male Examination: LAUREN Indication: Atrial Fibrillation Image Quality: Contrast: Requested by: Heart Rate: Rhythm: BP: / Procedure Staff Community Services Officer: Reading Physician: Javon Somers Requesting Provider: Conclusions: Spontaneous contrast in the left atrium. Spontaneous contrast is present in the left atrial appendage. Cardioversion cancelled at this time due to slow flow state.. Measurements: Chambers Valvular Assessment AV/MV Valvular Assessment TV/PV Normal Normal Normal Name Value Range Name Value Range Name Value Range Additional Measurements: Findings: Left Atrium: Spontaneous contrast in the left atrium. . Left Atrial Appendage: Spontaneous contrast is present in the left atrial appendage. Exam Comments: Cardioversion cancelled at this time due to slow flow state.. l1n (No Signature Object) Patient: MAYRA DICKEY Study Date: 03/25/2017 Page 1 of 2 02:19 PM Patient: MAYRA DICKEY Study Date: 03/25/2017 Page 2 of 2 02:19 PM D:_[id number]
== END 2017-03-25 18:17 | disposition home or self-care (01) | DRG 310 ==
LOC: F2W 21:30
PROVIDERS: ADMIT Hospitalist; ATTEND Internal Medicine
PROC: B245ZZ4 Ultrasonography of Left Heart, Transesophageal (ICD-10-PCS; principal; 2017-03-24)
PROC: 3E033RZ Introduction of Antiarrhythmic into Peripheral Vein, Percutaneous Approach (ICD-10-PCS; 2017-03-24)
DX: I48.0 Paroxysmal atrial fibrillation (principal); I51.3 Intracardiac thrombosis, not elsewhere classified; I48.92 Unspecified atrial flutter; R00.2 Palpitations; I10 Essential (primary) hypertension; K30 Functional dyspepsia; R09.81 Nasal congestion; E66.9 Obesity, unspecified; Z68.33 Body mass index [BMI] 33.0-33.9, adult
CPT/HCPCS: 96374; J0282; J0461; J2704

== ENCOUNTER 2017-04-30 07:53 | Day surgery (SDC) | payer OTHER ==
[2017-04-30] MEDS ORDERED: LR 1,000 ML IV ONE (08:00)
[2017-04-30] MEDS ORDERED: LIDOCAINE 1% 2 ML INJ ID PRN (08:00)
[2017-04-30 08:25] VITALS: PULSE 80
--- NOTE | 2017-04-30 09:17 | PDGENHP ---
History & Physical Chief Complaint: Bloating, belching, abdominal pain Relevant Physical Exam: GEN: NAD. Cardiac: irregular, irregular. Lungs: CTA B. Abd: soft, nt, nd
--- NOTE | 2017-04-30 09:24 | PDANEPAE ---
ANE History of Present Illness 61 yo for egd/colonoscopy ANE Past Medical History - Cardiovascular History Hx Hypertension: No Hx Arrhythmias: Yes Hx Chest Pain: No Hx Coronary Artery / Peripheral Vascular Disease: No Hx CHF / Valvular Disease: No Hx Palpitations: Yes - Pulmonary History Hx COPD: No Hx Asthma/Reactive Airway Disease: No Hx Recent Upper Respiratory Infection: No Hx Oxygen in Use at Home: No Hx Sleep Apnea: No Sleep Apnea Screening Result - Last Documented: Positive - Neurologic History Hx Cerebrovascular Accident: No Hx Seizures: No Hx Dementia: No - Endocrine History Hx Diabetes: No - Renal History Hx Renal Disorders: No - Liver History Hx Hepatic Disorders: No - Neurological & Psychiatric Hx Hx Neurological and Psychiatric Disorders: No - Cancer History Hx Cancer: No - Congenital Disorder History Hx Congenital Disorders: No - GI History Hx Gastrointestinal Disorders: Yes Gastrointestinal History Comment: nausea,gastritis,reflux. - Chronic Pain History Chronic Pain: No - Surgical History Prior Surgeries: cardiovertions x2 ANE Review of Systems Review of Systems: - Exercise capacity METS (RN): 4 METS ANE Patient History - Allergies Allergies/Adverse Reactions: No Known Allergies Allergy (Verified 03/24/17 17:44) - Home Medications Home medications: home medication list seen and reviewed Home Medications: Apixaban [Eliquis] 03/22/17 [Last Taken 04/30/17 08:18] Lisinopril [Zestril 5 mg (*)] 03/22/17 [Last Taken 04/30/17 08:18] Amiodarone HCl [Pacerone (*)] 04/08/17 [Last Taken 04/30/17 08:18] Cetirizine [ZyrTEC 10 mg (*)] 04/08/17 [Last Taken 04/23/17] Ipratropium 0.03% Nasal [Atrovent 0.03% Nasal (*)] 04/08/17 [Last Taken Unknown ] Metoprolol Tartrate [Lopressor 50 mg (*)] 04/08/17 [Last Taken 04/30/17 08:18] Simethicone [Mylicon] 04/08/17 [Last Taken 04/29/17] Omeprazole 40 mg PO 04/30/17 [Last Taken 04/29/17 20:00] - NPO status NPO Status: no food or drink >8 hours NPO Since - Liquids (Date): 04/30/17 NPO Since - Liquids (Time): 08:18 NPO Since - Solids (Date): 04/29/17 NPO Since - Solids (Time): 08:00 - Anes Hx Anes Hx: no prior problems - Smoking Hx Smoking Status: Never smoked - Family Anes Hx Family Hx Anesthesia Complications: none ANE Labs/Vital Signs - Vital Signs Blood Pressure: 106/72 Heart Rate: 80 Respiratory Rate: 20 O2 Sat (%): 96 Height: 5 ft 9 in Weight: 100.244 kg ANE Physical Exam - Airway Neck exam: FROM Mallampati Score: Class 2 Mouth exam: normal dental/mouth exam - Pulmonary Pulmonary: no respiratory distress - Cardiovascular Cardiovascular: irregularly irregular - ASA Status ASA Status: II ANE Anesthesia Plan Anesthesia Plan: GA with mask Total IV Anesthesia: Yes
[2017-04-30] MEDS ORDERED: PROPOFOL/EMULSION 500 MG/50 ML BOTTLE IV ONE (09:25)
[2017-04-30] MEDS ORDERED: fentaNYL 100 MCG/2 ML INJ ONE (09:28)
[2017-04-30] MEDS ORDERED: NALOXONE HCL 0.4 MG/ML INJ IVP PRN (09:44)
--- NOTE | 2017-04-30 10:03 | GIREPORT ---
[facility] Surgical Services - Endoscopy Department Patient Name: Dale Cox Procedure Date: 04/30/2017 9:21 AM Patient Type: Outpatient Attending MD/ ER Physician: Aman Whaley MD Procedure: Upper GI endoscopy Indications: Epigastric abdominal pain, Abdominal bloating Providers: Aman Whaley MD Medicines: Monitored Anesthesia Care Complications: No immediate complications. Description of Procedure: After obtaining informed consent, the endoscope was passed under direct vision. Throughout the procedure, the patient's blood pressure, pulse, and oxygen saturations were monitored continuously. The Endoscope was intro duced through the mouth, and advanced to the second part of duodenum. The [facility] er GI endoscopy was accomplished without difficulty. The patient tolerated th e procedure well. Findings: The examined esophagus was normal. The Z-line was regular and was found 44 cm from the incisors. A small hiatal hernia was present. The entire examined stomach was normal. The examined duodenum was normal. Estimated Blood Loss: Estimated blood loss: none. Post Op Diagnosis: - Normal esophagus. - Z-line regular, 44 cm from the incisors. - Small hiatal hernia. - Normal stomach. - Normal examined duodenum. - No specimens collected. Recommendation: - Discharge patient to home (with escort) after the colonoscopy is comp leted. - Resume previous diet. - Continue present medications. - Return to GI clinic as previously scheduled. - Thank you for allowing me to participate in the care of your patient. Attending Participation: I personally performed the entire procedure. Aman Whaley MD Aman Whaley MD 04/30/2017 10:02:59 AM This report has been signed electronicallyAman Whaley MD Number of Addenda: 0 Note Initiated On: 04/30/2017 9:21 AM [email or web address]
--- NOTE | 2017-04-30 10:07 | GIREPORT ---
[facility] Surgical Services - Endoscopy Department Patient Name: Dale Cox Procedure Date: 04/30/2017 9:42 AM Patient Type: Outpatient Attending / ER Physician: Aman Whaley MD Procedure: Colonoscopy Indications: Epigastric abdominal pain Providers: Aman Whaley MD Medicines: Monitored Anesthesia Care Complications: No immediate complications. Description of Procedure: After obtaining informed consent, the scope was passed under direct vis ion. Throughout the procedure, the patient's blood pressure, pulse, and oxyg en saturations were monitored continuously. The Colonoscope with irrigatio n channel was introduced through the anus and advanced to the terminal il eum, with identification of the appendiceal orifice and IC valve. The colono scopy was performed without difficulty. The patient tolerated the procedure w ell. The quality of the bowel preparation was excellent. Findings: The perianal and digital rectal examinations were normal. The terminal ileum appeared normal. A few small-mouthed diverticula were found in the sigmoid colon and descending colon. The retroflexed view of the distal rectum and anal verge was normal and showed no anal or rectal abnormalities. Estimated Blood Loss: Estimated blood loss: none. Post Op Diagnosis: - The examined portion of the ileum was normal. - Diverticulosis in the sigmoid colon and in the descending colon. - The distal rectum and anal verge are normal on retroflexion view. - No specimens collected. Recommendation: - Discharge patient to home (with escort). - Resume previous diet. - Continue present medications. - Repeat colonoscopy in 10 years for screening purposes. - Return to GI office as previously scheduled. - Thank you for allowing me to participate in the care of your patient. Attending Participation: I personally performed the entire procedure. Aman Whaley MD Aman Whaley MD 04/30/2017 10:06:35 AM This report has been signed electronicallyAman Whaley MD Number of Addenda: 0 Note Initiated On: 04/30/2017 9:42 AM Total Procedure Duration Time 0 hours 14 minutes 33 seconds [email or web address]
--- NOTE | 2017-04-30 10:09 | POSTANESTH ---
Post Anesthetic Evaluation Cardiovascular Status: Tx Hyper/Hypo-tension Respiratory Status: Normal, Stable Level of Consciousness/Mental Status: Can Participate in Eval Pain Control: Adequate, Prn Tx Ordered Nausea/Vomiting Control: Adequate, Prn Tx Ordered Complications Possibly Related to Anesthesia: None Noted
[2017-04-30 10:59] VITALS: TEMP 97.5
[2017-04-30 11:17] VITALS: RESP 14; O2SAT 98
[2017-04-30 11:48] VITALS: BP 105/71
== END 2017-04-30 11:51 | disposition home or self-care (01) ==
LOC: FSGY 07:53
PROVIDERS: ATTEND Internal Medicine Gastroenterology
PROC: 0DJD8ZZ Inspection of Lower Intestinal Tract, Via Natural or Artificial Opening Endoscopic (ICD-10-PCS; principal; 2017-04-30 09:30)
PROC: 0DJ08ZZ Inspection of Upper Intestinal Tract, Via Natural or Artificial Opening Endoscopic (ICD-10-PCS; principal; 2017-04-30 09:30)
DX: R10.13 Epigastric pain (principal); R14.0 Abdominal distension (gaseous); R63.4 Abnormal weight loss; K57.30 Diverticulosis of large intestine without perforation or abscess without bleeding; I48.91 Unspecified atrial fibrillation; I10 Essential (primary) hypertension
CPT/HCPCS: J2704; J3010

== ENCOUNTER 2017-05-05 11:48 | Emergency (ER) | payer OTHER ==
--- NOTE | 2017-05-05 12:28 | EDPHY ---
H & P Stated Complaint: L hip pain his dr thinks is from "pinched nerve" Needs stronger pain med Time Seen by Provider: 05/05/17 12:27 Source: Patient Exam Limitations: No limitations - Personal History Current Tetanus Diphtheria and Acellular Pertussis (TDAP): Yes - Medical/Surgical History Hx Asthma: No Hx Chronic Respiratory Disease: No Hx Diabetes: No Hx Cardiac Disease: Yes Hx Renal Disease: No Hx Cirrhosis: No Hx Alcoholism: No Hx HIV/AIDS: No Hx Splenectomy or Spleen Trauma: No Other PMH: AFIB. hypotension secondary to meds - Social History Smoking Status: Never smoked Constitutional: Initial Vital Signs Temperature (C) 36.4 C 05/05/17 11:53 Heart Rate 48 L 05/05/17 11:53 Respiratory Rate 16 05/05/17 11:53 Blood Pressure 106/74 05/05/17 11:53 O2 Sat (%) 98 05/05/17 11:53 O2 Delivery Mode Room Air Allergies/Adverse Reactions: No Known Allergies Allergy (Verified 05/05/17 11:53) Home Medications: Medication Instructions Recorded Amiodarone HCl [Pacerone (*)] 04/08/17 Metoprolol Tartrate [Lopressor 50 04/08/17 mg (*)] Apixaban [Eliquis] 5 mg PO BID 05/05/17 Esomeprazole Magnesium 40 mg PO 05/05/17 Hydrocodone/APAP 5/325 [[place] 1 each PO 05/05/17 5/325 (*)] methylPREDNISolone [Medrol Dose 1 each PO AD #1 ea 05/05/17 Claudio] oxyCODONE IR [Oxycodone Ir (*)] 5 - 10 mg PO Q6 PRN #20 tab 05/05/17 Medical Decision Making ED Course/Re-evaluation: CHIEF COMPLAINT: Low back pain HISTORY OF PRESENT ILLNESS: The patient is a 61-year-old male presenting with low back pain that radiates down his left leg. The patient has taken Hydrocodone and only found temporary relief. He had back x-rays done that showed moderate spondylosis from L5-S1. He has not yet had an MRI. The patient is now having difficulty moving secondary to pain. He denies bladder or bowel incontinence. No recent trauma. REVIEW OF SYSTEMS: A 10 point review of systems was performed and is negative with the exception of the elements mentioned in the history of present illness. PHYSICAL EXAM: HR, BP, O2 Sat, RR. Temp noted General Appearance: Alert, well hydrated, appropriate, and non-toxic appearing. Head: Atraumatic without scalp tenderness or obvious injury Eyes: Pupils equal, round, reactive to light and accommodation, EOMI, no trauma , no injection. Ears: Clear bilaterally, no perforation, normal landmarks Nose: Atraumatic, no rhinorrhea, clear. Throat: There is no erythema or exudates, no lesions, normal tonsils, mucus membranes moist. Neck: Supple, 2+ carotid upstroke, nontender, no lymphadenopathy. Respiratory: No retractions, no distress, no wheezes, and no accessory muscle use. Lungs are clear to auscultation bilaterally. Cardiovascular: Regular rate and rhythm, no murmurs, rubs, or gallops. Bilateral carotid, radial, dorsalis pedis, and posterior tibial pulses intact. Good capillary refill all extremities. Gastrointestinal: Abdomen is soft, nontender, non-distended, no masses, no rebound, no guarding, no peritoneal signs. Musculoskeletal: Normal active ROM of all extremities, atraumatic. Neurological: Alert, appropriate, and interactive. The patient has normal DTRs and non-focal cranial nerves, motor, sensory, and cerebellar exam. Skin: No rashes, good turgor, no nodules on palpation. Past medical history: Atrial fibrillation Past surgical history: Denies. Family history: Noncontributory. Social history: . Lives in [place]. DIFFERENTIAL DIAGNOSIS: The differential diagnosis for the patient's back pain included but was not limited to musculo-skeletal pain, epidural abscess, herniated disk, spinal fracture, and intra-abdominal causes including urinary system. MEDICAL DECISION MAKING: The patient presents with severe low back pain that radiates down his left leg. He had back x-ray that shows moderate spondylosis from L5-S1. The patient has not had bowel or bladder incontinence. No recent trauma. Plan to treat with Medrol dose pack to reduce inflammation. He is currently on Hydrocodone, I am going to prescribe him Oxycodone IR. He will follow up with Dr. Chase Departure - Departure Disposition: Home, Routine, Self-Care Clinical Impression: Sciatica Qualifiers: Laterality: left Qualified Code(s): M54.32 - Sciatica, left side Condition: Good Instructions: Sciatica (ED), Hip Pain (ED) Additional Instructions: Take Oxycodone as directed for severe pain. Take Solu-Medrol as prescribed. I recommend you follow up with Dr. Chase for further treatment. Referrals: Eddie Amaya MD [Primary Care Provider] - As per Instructions Bob Chase MD [Medical Doctor] - As per Instructions Prescriptions: methylPREDNISolone [Medrol Dose Claudio] 1 each PO AD #1 ea oxyCODONE IR [Oxycodone Ir (*)] 5 - 10 mg PO Q6 PRN #20 tab PRN Reason: Pain, Severe Report Scribed for: Edward Liz Report Scribed by: Magdalena Diamond Date of Report: 05/05/17 Time of Report: 12:39
[2017-05-05 12:37] VITALS: BP 111/67; PULSE 81; RESP 18; TEMP 97.9; O2SAT 95
[2017-05-05] MEDS ORDERED: OXYCODONE/APAP 5/325 TAB PO ONE (12:45)
== END 2017-05-05 12:41 | disposition home or self-care (01) ==
DX: M54.32 Sciatica, left side (principal)

== ENCOUNTER 2018-07-22 14:36 | Outpatient (CLI) | payer OTHER ==
[2018-07-22] MEDS ORDERED: MIDAZOLAM 2 MG/2 ML VIAL IVP ONE (14:38)
[2018-07-22] MEDS ORDERED: NS 500 ML IV ONE (14:38)
[2018-07-22] MEDS ORDERED: ATROPINE SULFATE 1 MG/10 ML SYR IVP ONE (14:38)
[2018-07-22] MEDS ORDERED: fentaNYL 100 MCG/2 ML INJ IVP ONE (14:38)
[2018-07-22] MEDS ORDERED: BENZOCAINE UNIT DOSE SPRAY HURRICAINE MM ONE (14:38)
[2018-07-22] MEDS ORDERED: ENOXAPARIN 120 MG/0.8 ML SYR SC ONE (15:00)
--- NOTE | 2018-07-23 13:23 | CPEKG ---
Test Reason : OPEN Blood Pressure : / mmHG Vent. Rate : 114 BPM Atrial Rate : 160 BPM P-R Int : 057 ms QRS Dur : 090 ms QT Int : 371 ms P-R-T Axes : 000 021 013 degrees QTc Int : 512 ms Atrial fibrillation Minimal ST depression, inferior leads Prolonged QT interval Confirmed by Terrence Denney ([id number]) on 07/23/2018 1:22:45 PM Referred By: Aman Graf Confirmed By:Terrence Denney
== END 2018-07-22 15:36 | disposition home or self-care (01) ==
LOC: FCATH 14:36
PROVIDERS: ATTEND Internal Medicine Cardiovascular Disease
DX: I48.91 Unspecified atrial fibrillation (principal); Z53.8 Procedure and treatment not carried out for other reasons
CPT/HCPCS: J1650

== ENCOUNTER → 2018-07-23 | Day surgery (SDC) | payer OTHER ==
[~2018-07-23] MED LIST: ATROPINE SULFATE 1 MG/10 ML SYR IVP ONE; NS 500 ML IV ONE; PROPOFOL/EMULSION 500 MG/50 ML BOTTLE IV ONE
[2018-07-23 09:24] LABS: INR 1.53 (0.83-1.16); PROTIME(PATIENT) 17.7 SEC (12.0-15.0)
--- NOTE | 2018-07-23 11:02 | PDHPUP ---
History & Physical Update H&P update statement: This history and physical update is based on an assessment of the patient which was completed after admission or registration (within 24 hours), but prior to the surgery/procedure. H&P update: H&P reviewed & patient examined, no change in patient's condition since H&P completed
--- NOTE | 2018-07-23 11:06 | PDANEPAE ---
ANE History of Present Illness here for LAUREN/CV ANE Past Medical History - Cardiovascular History Hx Hypertension: No Hx Arrhythmias: Yes Hx Chest Pain: No Hx Coronary Artery / Peripheral Vascular Disease: No Hx CHF / Valvular Disease: No Hx Palpitations: Yes - Pulmonary History Hx COPD: No Hx Asthma/Reactive Airway Disease: No Hx Recent Upper Respiratory Infection: No Hx Oxygen in Use at Home: No Hx Sleep Apnea: No - Neurologic History Hx Cerebrovascular Accident: No Hx Seizures: No Hx Dementia: No - Endocrine History Hx Diabetes: No - Renal History Hx Renal Disorders: No - Liver History Hx Hepatic Disorders: No - Neurological & Psychiatric Hx Hx Neurological and Psychiatric Disorders: No - Cancer History Hx Cancer: No - Congenital Disorder History Hx Congenital Disorders: No - GI History Hx Gastrointestinal Disorders: Yes Gastrointestinal History Comment: nausea,gastritis,reflux. - Chronic Pain History Chronic Pain: No - Surgical History Prior Surgeries: cardiovertions x2 ANE Review of Systems Review of systems is: negative Review of Systems: - Exercise capacity Exercise capacity: >=4 METS ANE Patient History - Allergies Allergies/Adverse Reactions: No Known Allergies Allergy (Verified 05/05/17 11:53) - Home Medications Home medications: home medication list seen and reviewed Home Medications: Apixaban [Eliquis] 5 mg PO BID 05/05/17 [Last Taken 07/23/18] Diltiazem Cd 120 mg PO DAILY 07/23/18 [Last Taken 07/22/18] - NPO status NPO Status: no food or drink >8 hours - Anes Hx Anes Hx: no prior problems - Smoking Hx Smoking Status: Never smoked - Family Anes Hx Family Hx Anesthesia Complications: none ANE Labs/Vital Signs - Labs Result Diagrams: 07/23/18 09:00 - Vital Signs Height: 175 cm Weight: 113.4 kg ANE Physical Exam - Airway Neck exam: FROM Mallampati Score: Class 1 - Pulmonary Pulmonary: no respiratory distress - Cardiovascular Cardiovascular: irregularly irregular - ASA Status ASA Status: III ANE Anesthesia Plan Anesthesia Plan: GA with mask
--- NOTE | 2018-07-23 11:29 | PDTEE1 ---
LAUREN Cardioversion Procedure Procedure: electrical cardioversion Indications: atrial fibrillation Consent: signed and in chart Anticoagulation: eliquis Procedural Details: Pads were placed in anterior-posterior position. LAUREN probe was advanced and standard images obtained. There is no evidence of left atrial or left atrial appendage thrombus. Synchronized cardioversion attempt #1: 200J Results: normal sinus rhythm Conclusions: successful LAUREN cardioversion Patient Problems: Problems Problem Status Onset Atrial fibrillation Acute Atrial fibrillation and flutter Acute Nausea Acute Palpitations Acute
--- NOTE | 2018-07-23 12:15 | CPEKG ---
Test Reason : OPEN Blood Pressure : / mmHG Vent. Rate : 065 BPM Atrial Rate : 065 BPM P-R Int : 179 ms QRS Dur : 092 ms QT Int : 444 ms P-R-T Axes : 012 025 030 degrees QTc Int : 462 ms Sinus rhythm Left atrial enlargement Abnormal inferior Q waves Confirmed by Aman Graf ([id number]) on 07/23/2018 12:14:39 PM Referred By: Aman Graf Confirmed By:Aman Graf
--- NOTE | 2018-07-23 15:59 | ECHO ---
[email or web address] [address] [address] Main: [phone] Echocardiography Examination Transesophageal Name: MAYRA DICKEY MR#: [id number] Study Date: 07/23/2018 Study Time: 10:51 AM Date of : 1955 Age: 63 year(s) Height: 175.3 cm (69 in.) Weight: 113.4 kg (250 lb.) BSA: 2.27 m2 Gender: Male Examination: LAUREN Indication: Atrial Fibrillation Image Quality: Contrast: Requested by: ?? BP: 113 mmHg/60 mmHg Heart Rate: Rhythm: Indication: Atrial Fibrillation Procedure Staff Referring Physician: Curing Supervisor: Kandace Patel RDCS Reading Physician: Aman Graf MD Requesting Provider: Indication: Atrial Fibrillation Measurements Chambers Label Value Normal Value LVEF visual 50 % Conclusions This is a transesophageal echo performed immediately prior to a cardioversion in this patient in atrial fibrillation. The left ventricle is normal in size with low normal estimated systolic function. The ejection fraction visually appears to be 50% with very mild global hypokinesis without ischemic wall motion abnormalities. The left atrium is severely dilated. There is spontaneous echo contrast within the left atrium and left atrial appendage without thrombus. The interatrial septum is intact on 2 dimensional imaging and color-flow Doppler. An agitated saline contrast study was negative for atrial septal defect. The mitral leaflets appear to be mildly thickened. There is mild mitral regurgitation. The tricuspid valve is structurally normal. With mild tricuspid regurgitation. Following the procedure the patient underwent a successful cardioversion. Left Ventricle: Mildly reduced systolic left ventricular function. Findings Left Ventricle: Mildly reduced systolic left ventricular function. The EF is visually estimated to be 50 %. There is mild global Patient: MAYRA DICKEY Study Date: 07/23/2018 Page 1 of 2 10:51 AM hypokinesis. No segmental wall motion abnormalities Left Atrium: The LA is severely enlarged with spontaneous contrast noted.. Left Atrium Appendage: There is evidence of spontaneous echo contrast ("smoke") in the left atrial appendage. No thrombus is identified. IAS: An agitated saline study was performed and was negative for intracardiac shunting. Mitral Valve: Mitral valve appears structurally normal. Mild mitral regurgitation. Aortic Valve: No aortic valve regurgitation. The aortic valve is trileaflet. Tricuspid Valve: Tricuspid valve leaflets are structurally normal. Pulmonic Valve: Pulmonic leaflets are structurally normal. Pericardium: Trivial pericardial effusion. Exam Details Procedure Ordered: LAUREN (No Signature Object) Patient: MAYRA DICKEY Study Date: 07/23/2018 Page 2 of 2 10:51 AM [id number]
== END | disposition home or self-care (01) ==
LOC: FCATH 08:47
PROVIDERS: ATTEND Internal Medicine Cardiovascular Disease
DX: I48.0 Paroxysmal atrial fibrillation (principal); K21.9 Gastro-esophageal reflux disease without esophagitis; R73.03 Prediabetes; E66.9 Obesity, unspecified; Z68.33 Body mass index [BMI] 33.0-33.9, adult; Z79.01 Long term (current) use of anticoagulants
CPT/HCPCS: J2704

== ENCOUNTER 2018-08-01 13:11 | Day surgery (SDC) | payer OTHER ==
[2018-08-01] MEDS ORDERED: NS 500 ML IV ONE (13:17)
[2018-08-01] MEDS ORDERED: fentaNYL 100 MCG/2 ML INJ IVP ONE (13:17)
[2018-08-01] MEDS ORDERED: ATROPINE SULFATE 1 MG/10 ML SYR IVP ONE (13:17)
[2018-08-01] MEDS ORDERED: MIDAZOLAM 2 MG/2 ML VIAL IVP ONE (13:17)
--- NOTE | 2018-08-01 13:48 | PDANEPAE ---
ANE History of Present Illness a. fib for CV ANE Past Medical History - Cardiovascular History Hx Hypertension: No Hx Arrhythmias: Yes Hx Chest Pain: No Hx Coronary Artery / Peripheral Vascular Disease: No Hx CHF / Valvular Disease: No Hx Palpitations: Yes - Pulmonary History Hx COPD: No Hx Asthma/Reactive Airway Disease: No Hx Recent Upper Respiratory Infection: No Hx Oxygen in Use at Home: No Hx Sleep Apnea: No - Neurologic History Hx Cerebrovascular Accident: No Hx Seizures: No Hx Dementia: No - Endocrine History Hx Diabetes: No Obesity: yes, severe - Renal History Hx Renal Disorders: No - Liver History Hx Hepatic Disorders: No - Neurological & Psychiatric Hx Hx Neurological and Psychiatric Disorders: No - Cancer History Hx Cancer: No - Congenital Disorder History Hx Congenital Disorders: No - GI History Hx Gastrointestinal Disorders: Yes Gastrointestinal History Comment: nausea,gastritis,reflux. - Chronic Pain History Chronic Pain: No - Surgical History Prior Surgeries: cardiovertions x2 ANE Review of Systems Review of systems is: negative Review of Systems: ANE Patient History - Allergies Allergies/Adverse Reactions: No Known Allergies Allergy (Verified 05/05/17 11:53) - Home Medications Home medications: home medication list seen and reviewed Home Medications: Apixaban [Eliquis] 5 mg PO BID 05/05/17 [Last Taken 08/01/18 08:00] Diltiazem Cd 120 mg PO DAILY 07/23/18 [Last Taken 07/31/18 20:00] Rythmol Sr 225 mg PO BID 08/01/18 [Last Taken 08/01/18 08:00] - Smoking Hx Smoking Status: Never smoked - Family Anes Hx Family Hx Anesthesia Complications: none ANE Labs/Vital Signs - Labs Result Diagrams: 08/01/18 13:40 ANE Physical Exam - Airway Neck exam: FROM Mallampati Score: Class 2 Mouth exam: normal dental/mouth exam - Pulmonary Pulmonary: no respiratory distress - Cardiovascular Cardiovascular: regular rate and rhythym - ASA Status ASA Status: III ANE Anesthesia Plan Anesthesia Plan: GA with mask
[2018-08-01] MEDS ORDERED: PROPOFOL 200 MG/20 ML VIAL ONE (14:08)
--- NOTE | 2018-08-01 14:15 | POSTANESTH ---
Post Anesthetic Evaluation Cardiovascular Status: Normal, Stable Respiratory Status: Normal, Stable Level of Consciousness/Mental Status: Can Participate in Eval, Mildly Sleepy, Arousable Pain Control: Adequate, Prn Tx Ordered Nausea/Vomiting Control: Adequate, Prn Tx Ordered Complications Possibly Related to Anesthesia: None Noted
[2018-08-01 14:47] LABS: INR 1.51 (0.83-1.16); PROTIME(PATIENT) 17.5 SEC (12.0-15.0)
--- NOTE | 2018-08-01 14:52 | PDCARD ---
Cardioversion Procedure Procedure: After consents for anesthesia and cardioversion were signed and placed in the chart, a "time out" was performed. Heart rate, oxygen saturation, and blood pressure were monitored. Uninterrupted Eliquis therapy has been maintained as well as review of recent LAUREN with cardioversion in early July 2018. Sedation was induced without difficulty. A single 200J synchronized shock was performed with conversion from atrial fibrillation to normal sinus rhythm (130 bpm - 75 bpm) Patient recovered without incident. Indications: atrial fibrillation Consent: signed and in chart Anticoagulation: eliquis Synchronized cardioversion attempt #1: 200J Results: normal sinus rhythm Conclusions: successful cardioversion Patient Problems: Problems Problem Status Onset Atrial fibrillation Acute Atrial fibrillation and flutter Acute Nausea Acute Palpitations Acute
--- NOTE | 2018-08-01 18:56 | CPEKG ---
Test Reason : OPEN Blood Pressure : / mmHG Vent. Rate : 103 BPM Atrial Rate : 146 BPM P-R Int : 212 ms QRS Dur : 100 ms QT Int : 382 ms P-R-T Axes : 000 025 016 degrees QTc Int : 500 ms Atrial fibrillation Inferior infarct, old Prolonged QT interval Confirmed by Matt Fontanez ([id number]) on 08/01/2018 6:56:27 PM Referred By: Terrence Gupta Confirmed By:Matt Fontanez
--- NOTE | 2018-08-01 18:57 | CPEKG ---
Test Reason : OPEN Blood Pressure : / mmHG Vent. Rate : 073 BPM Atrial Rate : 073 BPM P-R Int : 222 ms QRS Dur : 099 ms QT Int : 443 ms P-R-T Axes : 022 027 026 degrees QTc Int : 489 ms Sinus rhythm Prolonged MT interval Left atrial enlargement Borderline prolonged QT interval Confirmed by Matt Fontanez ([id number]) on 08/01/2018 6:56:52 PM Referred By: Terrence Gupta Confirmed By:Matt Fontanez
== END 2018-08-01 16:14 | disposition home or self-care (01) ==
LOC: FCATH 13:11
PROVIDERS: ATTEND Internal Medicine Cardiovascular Disease
PROC: 5A2204Z Restoration of Cardiac Rhythm, Single (ICD-10-PCS; principal; 2018-08-01)
DX: I48.0 Paroxysmal atrial fibrillation (principal); K21.9 Gastro-esophageal reflux disease without esophagitis; Z96.653 Presence of artificial knee joint, bilateral; E66.01 Morbid (severe) obesity due to excess calories; Z68.39 Body mass index [BMI] 39.0-39.9, adult
CPT/HCPCS: J2704

== ENCOUNTER 2018-08-21 09:12 | Day surgery (SDC) | payer OTHER ==
[2018-08-21] MEDS ORDERED: NS 1,000 ML IV ONE (09:13)
[2018-08-21] MEDS ORDERED: NS 500 ML IV ONE (09:41)
[2018-08-21] MEDS ORDERED: MIDAZOLAM 2 MG/2 ML VIAL IVP ONE (09:41)
[2018-08-21] MEDS ORDERED: fentaNYL 100 MCG/2 ML INJ IVP ONE (09:41)
[2018-08-21] MEDS ORDERED: ATROPINE SULFATE 1 MG/10 ML SYR IVP ONE (09:41)
[2018-08-21] MEDS ORDERED: BENZOCAINE UNIT DOSE SPRAY HURRICAINE MM ONE (09:41)
[2018-08-21 09:57] LABS: INR 1.63 (0.83-1.16); PROTIME(PATIENT) 18.6 SEC (12.0-15.0)
--- NOTE | 2018-08-21 10:38 | PDGENHP ---
History & Physical Chief Complaint: persistent AFib History of Present Illness: persistent AFib Relevant Physical Exam: A+Ox4, irr irr, no MRG, CTAB, no focal deficits Cardiorespiratory Assessment: persistent AFib -> cardioversion
--- NOTE | 2018-08-21 10:58 | PDANEPAE ---
ANE History of Present Illness CV A Fib ANE Past Medical History - Cardiovascular History Hx Hypertension: No Hx Arrhythmias: Yes Hx Chest Pain: No Hx Coronary Artery / Peripheral Vascular Disease: No Hx CHF / Valvular Disease: No Hx Palpitations: Yes - Pulmonary History Hx COPD: No Hx Asthma/Reactive Airway Disease: No Hx Recent Upper Respiratory Infection: No Hx Oxygen in Use at Home: No Hx Sleep Apnea: No - Neurologic History Hx Cerebrovascular Accident: No Hx Seizures: No Hx Dementia: No - Endocrine History Hx Diabetes: No Obesity: moderate - Renal History Hx Renal Disorders: No - Liver History Hx Hepatic Disorders: No - Neurological & Psychiatric Hx Hx Neurological and Psychiatric Disorders: No - Cancer History Hx Cancer: No - Congenital Disorder History Hx Congenital Disorders: No - GI History GERD: mild Hx Gastrointestinal Disorders: Yes Gastrointestinal History Comment: nausea,gastritis,reflux. - Chronic Pain History Chronic Pain: No - Surgical History Prior Surgeries: cardiovertions x2 ANE Review of Systems Review of Systems: - Exercise capacity METS (RN): 4 METS ANE Patient History - Allergies Allergies/Adverse Reactions: No Known Allergies Allergy (Verified 05/05/17 11:53) - Home Medications Home Medications: Apixaban [Eliquis] 5 mg PO BID 05/05/17 [Last Taken 08/21/18] Diltiazem Cd 120 mg PO DAILY 07/23/18 [Last Taken 07/31/18 20:00] Rythmol Sr 225 mg PO BID 08/01/18 [Last Taken 08/01/18 08:00] Amiodarone HCl 200 mg PO BID 08/21/18 [Last Taken 08/21/18] Ranitidine HCl 300 mg PO PRN 08/21/18 [Last Taken 08/20/18] - NPO status NPO Status: no food or drink >8 hours - Anes Hx Anes Hx: no prior problems - Smoking Hx Smoking Status: Never smoked - Family Anes Hx Family Hx Anesthesia Complications: none ANE Labs/Vital Signs - Labs Result Diagrams: 08/21/18 09:30 - Vital Signs Height: 175.26 cm Weight: 113.398 kg ANE Physical Exam - Airway Neck exam: decreased ROM Mallampati Score: Class 2 Mouth exam: normal dental/mouth exam - Pulmonary Pulmonary: no respiratory distress, no rales or rhonchi - Cardiovascular Cardiovascular: no murmur, rub, or gallop, irregularly irregular - ASA Status ASA Status: III ANE Anesthesia Plan Anesthesia Plan: GA with mask Total IV Anesthesia: Yes
[2018-08-21] MEDS ORDERED: PROPOFOL 200 MG/20 ML VIAL ONE (10:59)
--- NOTE | 2018-08-21 11:15 | EPPROC ---
Electrophysiology Procedure Note: Date: 08/21/2018 [employer] Principal: Cornelio Romano MD Procedures: DC cardioversion [address] Indications: 63-year-old male with symptomatic persistent atrial fibrillation, presenting for cardioversion. He has been on uninterrupted Eliquis for greater than 6 weeks. Techniques: Following informed consent, the patient was brought to the procedure area in a fasting nonsedated state, in atrial fibrillation rhythm. IV sedation was provided by the anesthesiology service. Defibrillation pads were applied in an anterolateral orientation. After ensuring adequate sedation , a single 200 joule biphasic R-wave synchronized transcutaneous shock was delivered, resulting in termination of AFib and resumption of normal sinus rhythm. The patient tolerated the procedure well. EBL: None Complications: None Plan: Continue Eliquis 5 mg twice daily for at least 1 month Continue amiodarone 200 mg daily Echocardiogram in sinus rhythm Ongoing discussion with myself and Dr. Johnson regarding catheter/surgical/hybrid ablation approach. Patient Problems: Problems Problem Status Onset Atrial fibrillation Acute Atrial fibrillation and flutter Acute Nausea Acute Palpitations Acute
--- NOTE | 2018-08-21 12:33 | CPEKG ---
Test Reason : OPEN Blood Pressure : / mmHG Vent. Rate : 081 BPM Atrial Rate : 176 BPM P-R Int : 164 ms QRS Dur : 102 ms QT Int : 444 ms P-R-T Axes : 000 036 034 degrees QTc Int : 516 ms Atrial fibrillation Prolonged QT interval Confirmed by Freddy Solroio ([id number]) on 08/21/2018 12:32:47 PM Referred By: Francisco Romano Confirmed By:Freddy Solorio
--- NOTE | 2018-08-21 12:36 | CPEKG ---
Test Reason : OPEN Blood Pressure : / mmHG Vent. Rate : 056 BPM Atrial Rate : 056 BPM P-R Int : 208 ms QRS Dur : 100 ms QT Int : 527 ms P-R-T Axes : 020 026 040 degrees QTc Int : 509 ms Sinus rhythm Left atrial enlargement Minimal ST depression, lateral leads Prolonged QT interval Confirmed by Freddy Solorio ([id number]) on 08/21/2018 12:35:38 PM Referred By: Francisco Romano Confirmed By:Freddy Solorio
--- NOTE | 2018-08-22 09:28 | ECHO ---
[email or web address] [address] [address] Main: [phone] Echocardiography Examination Transthoracic Name: MAYRA DICKEY MR#: [id number] Study Date: 08/21/2018 Study Time: 11:28 AM Date of : 1955 Age: 63 year(s) Height: 175.3 cm (69 in.) Weight: 113.4 kg (250 lb.) BSA: 2.27 m2 Gender: Male Examination: Echo Contrast: Image Quality: Good Rhythm: Normal sinus rhythm Heart Rate: 54 bpm BP: 119 mmHg/82 mmHg Indication: Post Cardioversion, Eval LA, MV Procedure Staff Referring Physician: Raw Stock Drier Tender: Madhav Ortiz RDCS Reading Physician: Terrence Gupta MD Requesting Provider: Indication: Post Cardioversion, Eval LA, MV Measurements Chambers AV/MV Label Value Normal Value Label Value Normal Value LVOT Vmax 0.54 m/s (0.7m/s - 1.1m/s) AV PGmax 6 mmHg LVOTd 2.1 cm (1.9cm - 2.1cm) AV PGmean 3 mmHg LVOT PGmax 1 mmHg AV Vmax 1.21 m/s LVDd, 2D 5.9 cm (4.2cm - 5.9cm) ROSALBA (Vmax) 1.5 cm2 LVDs, 2D 5.1 cm (2.1cm - 4cm) ROSALBA (VTI) 1.7 cm2 IVSd, 2D 1.1 cm (0.6cm - 1.1cm) MV E Vmax 1.11 m/s LVPWd, 2D 1 cm (0.6cm - 1cm) MV A Vmax 0.87 m/s LVEF, 2D 51 % (54% - 74%) MV E/A 1.28 LVOT PGmean 1 mmHg MV VTI 64.3 cm LVOT Vmean 0.37 m/s MVA D (continuity eq.) 0.8 cm2 LA Volume, BP 164 ml (18ml - 58ml) MV PGmax 9 mmHg LADs, 2D 6.2 cm (3cm - 4cm) MV PGmean 3 mmHg LAESV index, BP 72.2 ml/m2 MV Brunilda 3.8 cm RA Area 22 cm2 MR Reg. Volume 20 ml Additional Vessels MR Reg. Fraction 3 % Label Value Normal Value MR Vmax 4.55 m/s AoRoot, MM 3.4 cm (2.2cm - 3.7cm) MR VTI 167 cm MR (ERO) 0.12 cm2 MR PISA Radius 0.5 cm MR PISA Alias V. 33.9 cm/s Patient: MAYRA DICKEY Study Date: 08/21/2018 Page 1 of 3 11:28 AM TV/PV Label Value Normal Value RA Pressure 5 mmHg RVSP 29 mmHg TR Pmax 24 mmHg TR Vmax 2.47 m/s PV PGmax 3 mmHg PV Vmax, Caliper 0.91 m/s (0.6m/s - 0.9m/s) Conclusions (1) Low normal LVEF (50%) with mild global hypokinesis - no LVH (2) Normal RV size and function (3) Normal RA dimensions with severe LAE (4) Mild MR was noted with restricted mobility of both leaflets. - mean gradient was 3 mm Hg (5) Trileaflet aortic valve without insufficiency or sclerosis (6) Trossly normal tricuspid and pulmonic valves - RVSP was normal (7) Normal aorta dimensions Findings Left Ventricle: Left ventricle is on the upper limits of normal. The EF is visually estimated to be 50 %. EF range is estimated at 50 % - 55 %. Left ventricle wall thickness is normal. Cannot determine LAP and Diastolic Dysfunction Grade. There is mild diffuse hypokinesis. Right Ventricle: Normal size right ventricle. The RV function appears grossly normal. Left Atrium: The left atrium is severely dilated. Right Atrium: The right atrium is normal in size. Mitral Valve: Mild mitral regurgitation. No mitral valve stenosis. There is mitral thickening. There is diastolic doming of the valve. There is restricted mobility of both the anterior and posterior leaflets. Aortic Valve: Aortic leaflets are structurally normal. No aortic valve regurgitation. There is no aortic stenosis. Aortic leaflets exhibit no calcification. The aortic valve is trileaflet. Tricuspid Valve: Tricuspid valve leaflets are normal in appearance and function. No significant tricuspid regurgitation. Right Ventricular systolic pressure is measured at 29 mmHg. Pulmonic Valve: Pulmonic leaflets are normal in appearance and function. Aorta: The aorta is normal. The aortic root size in M-mode measures 3.4 cm. Aorta Measurements AoRoot, MM is 3.4 cm. IVC: The inferior vena cava is normal in size. Exam Details Procedure Ordered: Echo Patient: MAYRA DICKEY Study Date: 08/21/2018 Page 2 of 3 11:28 AM Procedure Status: Routine study Image Quality: Good Facility Location: Cardiac Echo 1 (No Signature Object) Patient: MAYRA DICKEY Study Date: 08/21/2018 Page 3 of 3 11:28 AM [id number]
== END 2018-08-21 12:30 | disposition home or self-care (01) ==
LOC: FCATH 09:12
PROVIDERS: ATTEND Internal Medicine Cardiovascular Disease
PROC: 5A2204Z Restoration of Cardiac Rhythm, Single (ICD-10-PCS; principal; 2018-08-21)
DX: I48.1 Persistent atrial fibrillation (principal); K21.9 Gastro-esophageal reflux disease without esophagitis; E66.9 Obesity, unspecified; M43.16 Spondylolisthesis, lumbar region; Z68.30 Body mass index [BMI] 30.0-30.9, adult; Z96.653 Presence of artificial knee joint, bilateral
CPT/HCPCS: J0461; J2704

== ENCOUNTER 2018-09-24 07:56 | Inpatient (IN) | payer OTHER ==
[2018-09-24] MEDS ORDERED: ASPIRIN EC 325 MG TAB PO ONE (07:58)
[2018-09-24] MEDS ORDERED: DIAZEPAM 5 MG TAB PO ONE (07:58)
[2018-09-24] MEDS ORDERED: diphenhydrAMINE 25 MG CAP PO ONE (07:58)
[2018-09-24] MEDS ORDERED: FAMOTIDINE 20 MG TAB PO ONE (07:58)
[2018-09-24] MEDS ORDERED: NS 1,000 ML IV ONE (07:58)
[2018-09-24 08:56] LABS: PLATELET COUNT 142 10^3/uL (150-400)
[2018-09-24] MEDS ORDERED: HEPARIN 10,000 UNIT/10 ML MDV (1,000 UNIT/ML) ONE (09:17)
[2018-09-24] MEDS ORDERED: LIDOCAINE 1% 300 MG/30 ML SDV ONE (09:17)
[2018-09-24] MEDS ORDERED: VERAPAMIL 5 MG/2 ML VIAL ONE (09:17)
[2018-09-24] MEDS ORDERED: MIDAZOLAM 2 MG/2 ML VIAL ONE (09:17)
[2018-09-24] MEDS ORDERED: fentaNYL 100 MCG/2 ML INJ ONE (09:17)
[2018-09-24] MEDS ORDERED: IOPAMIDOL (ISOVUE-370) 150 ML BTL IV ONE ×2 (09:18→10:58)
[2018-09-24 09:20] LABS: INR 1.15 (0.83-1.16); PROTIME(PATIENT) 14.2 SEC (12.0-15.0)
--- NOTE | 2018-09-24 09:50 | PDGENHP ---
History & Physical Chief Complaint: Palpitations and fatigue. History of Present Illness: The patient is a 63-year-old male with markedly symptomatic atrial fibrillation which has now become persistent. He saw Dr. Gtz and to discuss a potential surgical option. As his cardiac workup ensued, at least moderate mitral regurgitation was also identified. He is now scheduled for mitral valve repair/replacement and a Ryan Maze IV ablation tomorrow. He needs a preoperative left heart catheterization to assess for flow limiting CAD which would require bypasses in conjunction with his surgery. Pertinent Past, Social, Family History: All of the patient's past medical, surgical, family, and social history is detailed in Dr. James's note of August 19 which has been placed on the chart for informational purposes. Relevant Physical Exam: Well well-developed well-nourished male in no acute distress. He is alert and oriented x3. No scleral icterus. Mucous membranes moist. Carotid pulses 2+ without bruits. Lung brownlee clear to auscultation. Irregularly irregular rhythm without a murmur. No abdominal tenderness. Normal bowel sounds. 2+ pulses in all 4 extremities. No peripheral edema. An Yohannes test on the right wrist was normal at less than 5 sec.
--- NOTE | 2018-09-24 09:53 | PDPROPOC ---
Sedation Plan of Care Sedation Plan of Care: vital signs stable, mental status noted, patient educated of risks, benefits, alternatives, patient can tolerate sedation ASA Classification: ASA 2 Planned drugs: fentanyl, midazolam Mallampati Score: Class 3 Mallampati Reference Image: Patient passed 3-3-2 rule?: Yes
[2018-09-24] MEDS ORDERED: NS 1,000 ML IV SCH (11:30)
[2018-09-24] MEDS ORDERED: ACETAMINOPHEN 325 MG TAB PO PRN (11:30)
[2018-09-24] MEDS ORDERED: HYDROCODONE/APAP 5/325 TAB PO PRN (11:30)
[2018-09-24] MEDS ORDERED: ONDANSETRON 4 MG/2 ML VIAL IVP PRN (11:30)
[2018-09-24] MEDS ORDERED: ATROPINE SULFATE 1 MG/10 ML SYR IVP PRN (11:30)
--- NOTE | 2018-09-24 11:42 | PDDXCAT ---
Diagnostic Cath Note - . Date: 09/24/18 Professional Driver: Bruce [employer] Operations Manager: Bruce Indication: other (Pre-op cath for MV surgery tomorrow.) - Procedure Access: right wrist Procedure: left heart catheterization, coronary angiography, left ventriculogram - Materials Left Heart Cath size: 5F Left Heart Cath materials: pigtail, other (TIG and AL-1) - Findings-Left Heart Catheterization LM: Normal. LAD: Minimal irregularites. LCX: Minimal irregularities. RCA: High anterior take-off. Minimal irregularities. EDP: 22 mmHg LVEF: 25-30% Wall motion: Global hypokinesis. Complications: None Estimated blood loss: <50ml Closure method: TR Band Assessment: 1) Minimal coronary atherosclerosis. 2) Nonischemic cardiomyopathy. Patient Problems: Problems Problem Status Onset Atrial fibrillation Acute Atrial fibrillation and flutter Acute Nausea Acute Palpitations Acute
--- NOTE | 2018-09-24 12:45 | PDMN ---
Medical Necessity Medical necessity: [facility] [place] [facility] [place] S290 Cardiac Valve Replacement or Repair, 5 days: 63 yo s /p cardiac cath; then to OR for cardiac valve repair, [facility] hidalgo
--- NOTE | 2018-09-24 13:54 | PDGENHP ---
History and Physical - Chief Complaint preop open heart surgery - History of Present Illness 63 yo male with increasing burden of symptomatic atrial fibrillation ( refractory to chemical/electrical cardioversion) assoc with moderate MR, mild TR and declining LV systolic fx, admitted in advance of scheduled surgery to complete risk stratification. Preop imaging neg for obstructive coronary or carotid disease, but concerning for further drop in LVEF from 50% range to 25% range in the past month. Echo pending. 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 Walks slower or rests when he needs to. No napping. No perceivable wt gain, orthopnea, PND, abdominal tenderness, or leg edema. Eliquis stopped 09/17. History Information - Allergies/Home Medication List Allergies/Adverse Reactions: No Known Allergies Allergy (Verified 05/05/17 11:53) Home Medications: Amiodarone HCl [Pacerone (*)] 200 mg PO DAILY 09/17/18 [Last Taken 09/17/18] Apixaban [Eliquis] 5 mg PO BID 09/17/18 [Last Taken 09/17/18] Ranitidine HCl 300 mg PO DAILY PRN 09/17/18 [Last Taken Unknown] I have personally reviewed and updated: family history, medical history, social history, surgical history - Past Medical History atrial fibrillation (persistent since July 2018; chronically anticoagulated on Eliquis), GERD Additional medical history: Prediabetes. obesity, BMI 35-40. CORRIE (recent diagnosis), awaiting CPAP. Borderline thrombocytopenia, baseline 150s-180s since 2017. DJD knees - Surgical History Additional surgical history: bilat TKAs. bladder polypectomy - Social History Smoking Status: Never smoked Review of Systems Review of Systems: ROS: 10pt was reviewed & negative except for what was stated in HPI & below Genitourinary: Reports: other (BM yest) Physical Exam Physical Exam: Temp Pulse Resp BP Pulse Ox 36.4 C 77 14 126/88 H 97 09/24/18 13:47 09/24/18 13:47 09/24/18 13:47 09/24/18 13:47 09/24/18 13:47 Constitutional: no apparent distress, obese Eyes: anicteric sclera Ears, Nose, Mouth, Throat: moist mucous membranes Cardiovascular: irregularly irregular, other (no visible edema) Peripheral Pulses: 3+: dorsalis-pedis (R), dorsalis-pedis (L) Respiratory: clear to auscultation Gastrointestinal: normoactive bowel sounds, soft, non-tender abdomen Skin: warm, normal color Musculoskeletal: other (symmetric tone) Psychiatric: interacting appropriately, not anxious Lab Data & Imaging Review 09/24/18 08:20 09/24/18 08:20 WBC 4.25 10^3/uL (3.80-9.50) 09/24/18 08:20 RBC 4.83 10^6/uL (4.40-6.38) 09/24/18 08:20 Hgb 15.1 g/dL (13.7-17.5) 09/24/18 08:20 Hct 44.8 % (40.0-51.0) 09/24/18 08:20 MCV 92.8 fL (81.5-99.8) 09/24/18 08:20 MCH 31.3 pg (27.9-34.1) 09/24/18 08:20 MCHC 33.7 g/dL (32.4-36.7) 09/24/18 08:20 RDW 13.8 % (11.5-15.2) 09/24/18 08:20 Plt Count 142 10^3/uL (150-400) L 09/24/18 08:20 MPV 9.9 fL (8.7-11.7) 09/24/18 08:20 Neut % (Auto) 64.0 % (39.3-74.2) 09/24/18 08:20 Lymph % (Auto) 21.6 % (15.0-45.0) 09/24/18 08:20 [place] % (Auto) 10.8 % (4.5-13.0) 09/24/18 08:20 Eos % (Auto) 2.6 % (0.6-7.6) 09/24/18 08:20 Baso % (Auto) 0.5 % (0.3-1.7) 09/24/18 08:20 Nucleat RBC Rel Count 0.0 % (0.0-0.2) 09/24/18 08:20 Absolute Neuts (auto) 2.72 10^3/uL (1.70-6.50) 09/24/18 08:20 Absolute Lymphs (auto) 0.92 10^3/uL (1.00-3.00) L 09/24/18 08:20 Absolute Monos (auto) 0.46 10^3/uL (0.30-0.80) 09/24/18 08:20 Absolute Eos (auto) 0.11 10^3/uL (0.03-0.40) 09/24/18 08:20 Absolute Basos (auto) 0.02 10^3/uL (0.02-0.10) 09/24/18 08:20 Absolute Nucleated RBC 0.00 10^3/uL (0-0.01) 09/24/18 08:20 Immature Gran % 0.5 % (0.0-1.1) 09/24/18 08:20 Immature Gran # 0.02 10^3/uL (0.00-0.10) 09/24/18 08:20 PT 14.2 SEC (12.0-15.0) 09/24/18 08:20 INR 1.15 (0.83-1.16) 09/24/18 08:20 Sodium 139 mEq/L (135-145) 09/24/18 08:20 Potassium 4.0 mEq/L (3.5-5.2) 09/24/18 08:20 Chloride 110 mEq/L (97-110) 09/24/18 08:20 Carbon Dioxide 21 mEq/l (22-31) L 09/24/18 08:20 Anion Gap 8 mEq/L (6-14) 09/24/18 08:20 BUN 19 mg/dL (7-23) 09/24/18 08:20 Creatinine 0.9 mg/dL (0.7-1.3) 09/24/18 08:20 Estimated GFR > 60 09/24/18 08:20 Glucose 116 mg/dL (70-100) H 09/24/18 08:20 Calcium 8.7 mg/dL (8.5-10.4) 09/24/18 08:20 Magnesium 1.8 mg/dL (1.6-2.3) 09/24/18 08:20 Triglycerides 106 mg/dL (40-150) 09/24/18 08:20 Cholesterol 167 mg/dL (140-220) 09/24/18 08:20 Cholesterol Risk Factr 0.8 (0.2-1.0) 09/24/18 08:20 LDL Cholesterol, Calc 103 mg/dL (80-100) H 09/24/18 08:20 LDL Risk Factor 0.8 (0.2-1.0) 09/24/18 08:20 VLDL Cholesterol 21 mg/dL (8-25) 09/24/18 08:20 Non-HDL Cholesterol 124 mg/dL (90-129) 09/24/18 08:20 HDL Cholesterol 43 mg/dL (40-65) 09/24/18 08:20 LDL/HDL Ratio 2.39 RATIO (1.00-3.64) 09/24/18 08:20 Cholesterol/HDL Ratio 3.88 RATIO (1.00-4.97) 09/24/18 08:20 Patient ABO/Rh O POSITIVE 09/24/18 08:20 Antibody Screen NEGATIVE 09/24/18 08:20 Imaging Review: Carotid US neg for disease [facility] rt dom system, minimal atherosclerosis, EDP 22, LVEF 25-30% Visualized and Interpreted Chest x-ray results: Yes Chest X-Ray results: no infiltrate, other (no effusion) Visualized and Interpreted EKG results: Yes EKG Interpretation: Positive for: other (AF 80s) Assessment & Plan Assessment: Longstanding persistent atrial fibrillation Nonischemic cardiomyopathy Class II-III functional symptoms without overt CHF Moderate mitral regurgitation Morbid obesity CORRIE awaiting CPAP Prediabetes Chronic thrombocytopenia Plan: Ryan-Maze IV, mitral valve repair, +/- tricuspid valve repair tomorrow Consents per Dr Johnson
--- NOTE | 2018-09-24 17:29 | ECHO ---
[email or web address] [address] [address] Main: [phone] Echocardiography Examination Transthoracic Name: MAYRA DICKEY MR#: [id number] Study Date: 09/24/2018 Study Time: 03:28 PM Date of : 1955 Age: 63 year(s) Height: 175.3 cm (69 in.) Weight: 116.12 kg (256 lb.) BSA: 2.29 m2 Gender: Male Examination: Echo Contrast: Image Quality: Adequate Rhythm: Heart Rate: BP: 100 mmHg/72 mmHg Indication: Worsening systolic dysfunction/eval for worsened valvular regurgitation Procedure Staff Referring Physician: Supervisor [employer]: Kandace Patel RDCS Reading Physician: Garret Barrera MD Requesting Provider: Ordering Physician: Maryam Anthony Indication: Worsening systolic dysfunction/eval for worsened valvular regurgitation Measurements Chambers AV/MV Label Value Normal Value Label Value Normal Value LVOTd 2.5 cm (1.9cm - 2.1cm) AV PGmean 3 mmHg LVOT VTI 12.9 cm (18cm - 22cm) AV Vmax 1.13 m/s LVDd, 2D 5.6 cm (4.2cm - 5.9cm) ROSALBA (VTI) 2.8 cm2 LVDs, 2D 4 cm (2.1cm - 4cm) MV E Vmax 1.89 m/s IVSd, 2D 1 cm (0.6cm - 1.1cm) MV A Vmax 1.21 m/s LVPWd, 2D 1 cm (0.6cm - 1cm) MV E/A 1.56 LVEF, 2D 56 % (54% - 74%) MV E/E' lateral 41.3 LVOT PGmean 1 mmHg MV E/E' septal 33.5 (0.45 - 1.25) LVOT Vmean 0.47 m/s MV DT 405 ms LA Volume, BP 178 ml (18ml - 58ml) MV E' septal 0.06 m/s LADs, 2D 7 cm (3cm - 4cm) MV VTI 65.8 cm LAESV index, BP 77.7 ml/m2 MVA D (continuity eq.) 1 cm2 Additional Vessels MV PGmax 18 mmHg Label Value Normal Value MV PGmean 6 mmHg AoAsc 3.6 cm MV PHT 0.15 s AoRoot, MM 3.5 cm (2.2cm - 3.7cm) MVA PHT 1.4 cm2 MV Brunilda 4.5 cm MR Reg. Volume 74 ml MR Reg. Fraction 7 % Patient: MAYRA DICKEY Study Date: 09/24/2018 Page 1 of 3 03:28 PM MR Vmax 4.5 m/s MR VTI 160 cm MR (ERO) 0.46 cm2 MV E' lateral 0.05 m/s MR PISA Radius 0.9 cm MV E/E' mean 34.36 MR PISA Alias V. 41.1 cm/s MV PHT 153 ms MV E' mean 0.06 m/s Conclusions Left Ventricle: Left ventricle is normal in size. EF range is estimated at 55 % - 60 %. There are no regional wall motion abnormalities. Left Atrium: The left atrium is severely dilated. Mitral Valve: There is mitral thickening. There is diastolic doming of the valve. There is restricted mobility of both the anterior and posterior leaflets.. Moderate to severe mitral regurgitation. Mitral Valve Measurements MV PGmax is 18 mmHg. MV PGmean is 6 mmHg. Aortic Valve: There is no aortic stenosis. Aortic leaflets exhibit mild calcification. Pericardium: Trivial pericardial effusion. Overall Conclusions: CompDate//(08/21/2018) Findings Left Ventricle: Left ventricle is normal in size. EF range is estimated at 55 % - 60 %. Left ventricle wall thickness is normal. There are no regional wall motion abnormalities. Unable to assess Diastolic Dysfunction due to atrial fibrillation/a flutter. IVS: The septum is intact. Right Ventricle: Normal size right ventricle. Right ventricular systolic function is normal. Left Atrium: The left atrium is severely dilated. IAS: Normal appearing atrial septum. Right Atrium: Patient: MAYRA DICKEY Study Date: 09/24/2018 Page 2 of 3 03:28 PM The right atrium is normal in size. Mitral Valve: There is mitral thickening. There is diastolic doming of the valve. There is restricted mobility of both the anterior and posterior leaflets.. Moderate to severe mitral regurgitation. Mitral Valve Measurements MV PGmax is 18 mmHg. MV PGmean is 6 mmHg. Aortic Valve: Aortic leaflets exhibit normal cuspal separation. No aortic valve regurgitation. There is no aortic stenosis. Aortic leaflets exhibit mild calcification. The aortic valve is trileaflet. Tricuspid Valve: Tricuspid valve leaflets are normal in appearance and function. Trivial tricuspid regurgitation. No tricuspid valve stenosis. Pulmonary artery pressure normal. Pulmonic Valve: Pulmonic leaflets exhibit normal cuspal separation. Trivial pulmonic valve regurgitation is present. There is no pulmonic valve stenosis. Aorta: The aorta is normal. The aortic root size in M-mode measures 3.5 cm. The ascending aorta measures 3.6 cm. Aorta Measurements AoRoot, MM is 3.5 cm. Pulmonary Artery: The pulmonary artery morphology appears normal. IVC: The inferior vena cava is normal in size and course. Pericardium: Trivial pericardial effusion. No pleural effusion present. Exam Details Procedure Ordered: Echo Procedure Status: Routine study Image Quality: Adequate Facility Location: Cardiac Echo 1 (No Signature Object) Patient: MAYRA DICKEY Study Date: 09/24/2018 Page 3 of 3 03:28 PM [id number]
--- NOTE | 2018-09-24 18:29 | CPEKG ---
Test Reason : OPEN Blood Pressure : / mmHG Vent. Rate : 087 BPM Atrial Rate : 186 BPM P-R Int : 146 ms QRS Dur : 097 ms QT Int : 433 ms P-R-T Axes : 000 051 050 degrees QTc Int : 521 ms Atrial fibrillation Prolonged QT interval Confirmed by Sai Toribio ([id number]) on 09/24/2018 6:29:00 PM Referred By: Garret Barrera Confirmed By:Sai Toribio
[2018-09-24] MEDS ORDERED: CHLORHEXIDINE GLUC HIBICLENS 118 ML BTL TP SCH (21:00)
[2018-09-24] MEDS ORDERED: PANTOPRAZOLE SODIUM 40 MG TAB PO ONE (21:00)
[2018-09-24] MEDS: MUPIROCIN 2% 22 GM OINT NS SCH (21:30)
[2018-09-25] MEDS: MUPIROCIN 2% 22 GM OINT NS SCH ×2 (05:46→20:52)
[2018-09-25] MEDS ORDERED: NS IV ONE (06:00)
[2018-09-25] MEDS ORDERED: AMINOCAPROIC ACID 5 GM/20 ML VIAL IV ONE (06:00)
[2018-09-25] MEDS ORDERED: INSULIN REGULAR HUMAN 100 UNIT in NS 100 ML IV ONE (06:00)
[2018-09-25] MEDS ORDERED: MILRINONE/DEXTROSE 100 ML IV SCH (06:00)
[2018-09-25] MEDS ORDERED: ceFAZolin 2 GM/DEXTROSE 100 ML IV ONE (06:00)
[2018-09-25] MEDS ORDERED: CALCIUM CHLORIDE IV ONE (06:00)
[2018-09-25] MEDS ORDERED: CARDIOPLEGIC SOLUTION 1,052.8 ML PF ONE (06:00)
[2018-09-25] MEDS ORDERED: MANNITOL 25% 12.5 GM/50 ML VIAL IVP ONE (06:00)
[2018-09-25] MEDS ORDERED: DOBUTamine/DEXTROSE 250 ML IV SCH (06:00)
[2018-09-25] MEDS ORDERED: EPINEPHRINE IV ONE (06:00)
[2018-09-25] MEDS ORDERED: NOREPINEPHRINE BITARTRATE 16 MG in NS 250 ML IV ONE (06:00)
[2018-09-25] MEDS ORDERED: CITRATE DEXTROSE SOLN 500 ML BAG MISC ONE (06:00)
[2018-09-25] MEDS ORDERED: PHENYLEPHRINE HCL 50 MG in NS 250 ML IV ONE (06:00)
[2018-09-25] MEDS ORDERED: LR 1,000 ML IV ONE (06:25)
[2018-09-25] MEDS ORDERED: PROTAMINE SULFATE 50 MG/5 ML VIAL IVP ONE (06:44)
[2018-09-25] MEDS ORDERED: CALCIUM CHLORIDE 1 GM/10 ML INJ ONE ×2 (06:44→06:47)
[2018-09-25] MEDS ORDERED: MILRINONE/DEXTROSE/100 ML BAG IV ONE (06:44)
[2018-09-25] MEDS ORDERED: AMINOCAPROIC ACID 5 GM/20 ML VIAL ONE ×2 (06:44→06:47)
[2018-09-25] MEDS ORDERED: HEPARIN 10,000 UNIT/10 ML MDV (1,000 UNIT/ML) ONE ×2 (06:45→06:47)
[2018-09-25] MEDS ORDERED: DOPamine/DEXTROSE 400 MG/250 ML BAG IV ONE (06:45)
[2018-09-25] MEDS ORDERED: NA BICARBONATE 50 MEQ/50 ML VIAL ONE (06:45)
[2018-09-25] MEDS ORDERED: niCARdipine/NACL/200 ML BAG IV ONE (06:45)
[2018-09-25] MEDS ORDERED: AMIODARONE HCL 150 MG/3 ML VIAL ONE ×2 (06:46→06:47)
[2018-09-25] MEDS ORDERED: NITROGLYCERIN/D5W 50 MG/250 ML BOTTLE IV ONE (06:46)
[2018-09-25] MEDS ORDERED: ADENOSINE 6 MG/2 ML VIAL ONE (06:46)
[2018-09-25] MEDS ORDERED: ceFAZolin 1 GM VIAL ONE (06:46)
[2018-09-25] MEDS ORDERED: ALBUMIN 5% 250 ML BOTTLE IV ONE ×2 (06:47→10:47)
[2018-09-25] MEDS ORDERED: CITRATE DEXTROSE SOLN 500 ML BAG ONE (06:47)
[2018-09-25] MEDS ORDERED: MAGNESIUM SULFATE 1 GM/2 ML VIAL ONE (06:47)
[2018-09-25] MEDS ORDERED: LIDOCAINE 2% 100 MG/5 ML SYR ONE (06:47)
[2018-09-25] MEDS ORDERED: methylPREDNISolone SOD SUCC 1 GM/8 ML VIAL ONE (06:48)
[2018-09-25] MEDS ORDERED: MIDAZOLAM 2 MG/2 ML VIAL ONE ×2 (07:01→07:17)
[2018-09-25] MEDS ORDERED: PROPOFOL 200 MG/20 ML VIAL ONE (07:12)
[2018-09-25] MEDS ORDERED: LIDOCAINE 2% 5 ML SDV ONE (07:12)
[2018-09-25] MEDS ORDERED: fentaNYL 250 MCG/5 ML INJ ONE ×2 (07:12)
[2018-09-25] MEDS ORDERED: ROCURONIUM 100 MG/10 ML VIAL ONE (07:14)
[2018-09-25] MEDS ORDERED: SUCCINYLCHOLINE CHLORIDE 200 MG/10 ML SYR IVP ONE (07:14)
[2018-09-25] MEDS ORDERED: EPINEPHrine 1 MG/ML INJ ONE (07:29)
[2018-09-25] MEDS ORDERED: MIDAZOLAM 2 MG/2 ML VIAL IVP ONE (08:55)
--- NOTE | 2018-09-25 08:55 | PDANEPAE ---
ANE History of Present Illness mvr, bañuelos maze ANE Past Medical History - Cardiovascular History Hx Hypertension: No Hx Arrhythmias: Yes Hx Chest Pain: No Hx Coronary Artery / Peripheral Vascular Disease: No Hx CHF / Valvular Disease: Yes Hx Palpitations: Yes Cardiovascular History Comment: Afib - Pulmonary History Hx COPD: No Hx Asthma/Reactive Airway Disease: No Hx Recent Upper Respiratory Infection: No Hx Oxygen in Use at Home: No Hx Sleep Apnea: Yes Sleep Apnea Screening Result - Last Documented: Positive - Neurologic History Hx Cerebrovascular Accident: No Hx Seizures: No Hx Dementia: No - Endocrine History Hx Diabetes: No Hypothyroid: No Hyperthyroid: No Obesity: moderate Endocrine History Comment: Hx of pre-diabetes - Renal History Hx Renal Disorders: No Renal History Comment: benign bladder tumor - Liver History Hx Hepatic Disorders: No - Neurological & Psychiatric Hx Hx Neurological and Psychiatric Disorders: No Neurological / Psychiatric History Comment: spondylolisthesis L5S1. sciatica. back pain - Cancer History Hx Cancer: No - Congenital Disorder History Hx Congenital Disorders: No - GI History GERD: mild Hx Gastrointestinal Disorders: Yes Gastrointestinal History Comment: nausea,gastritis,reflux. - Other Health History Other Health History: obesity - Chronic Pain History Chronic Pain: Yes (back pain) - Surgical History Prior Surgeries: cardiovertions x2. bilat knee replacements. bladder polypectomy ANE Review of Systems Review of Systems: - Exercise capacity Exercise capacity: <4 METS METS (RN): 3 METS ANE Patient History - Allergies Allergies/Adverse Reactions: No Known Allergies Allergy (Verified 05/05/17 11:53) - Home Medications Home medications: home medication list seen and reviewed Home Medications: Amiodarone HCl [Pacerone (*)] 200 mg PO DAILY 09/17/18 [Last Taken 09/17/18] Apixaban [Eliquis] 5 mg PO BID 09/17/18 [Last Taken 09/17/18] Ranitidine HCl 300 mg PO DAILY PRN 09/17/18 [Last Taken Unknown] - NPO status NPO Status: no food or drink >8 hours NPO Since - Liquids (Date): 09/25/18 NPO Since - Liquids (Time): 00:05 NPO Since - Solids (Date): 09/24/18 NPO Since - Solids (Time): 22:00 - Anes Hx Anes Hx: post operative nausea and vomiting - Smoking Hx Smoking Status: Never smoked - Family Anes Hx Family Hx Anesthesia Complications: none ANE Labs/Vital Signs - Labs Result Diagrams: 09/25/18 03:16 09/25/18 03:16 - Vital Signs Blood Pressure: 116/80 Heart Rate: 89 Respiratory Rate: 18 O2 Sat (%): 92 Height: 175.2 cm Weight: 112.9 kg ANE Physical Exam - Airway Mallampati Score: Class 2 Mouth exam: normal dental/mouth exam - Pulmonary Pulmonary: no respiratory distress - Cardiovascular Cardiovascular: regular rate and rhythym - ASA Status ASA Status: III ANE Anesthesia Plan Anesthesia Plan: general endotracheal anesthesia Lines/Monitors: arterial line, central line, LAUREN
[2018-09-25] MEDS ORDERED: MINERAL OIL 10 ML VIAL ONE (09:58)
[2018-09-25] MEDS ORDERED: ROCURONIUM 50 MG/5 ML VIAL ONE (10:28)
[2018-09-25] MEDS ORDERED: PHENYLEPHRINE 10 MG/ML SDV ONE (10:47)
[2018-09-25] MEDS ORDERED: BISACODYL 10 MG SUPP PR PRN (11:24)
[2018-09-25] MEDS ORDERED: PANTOPRAZOLE SODIUM 40 MG VIAL IVP ONE (11:24)
[2018-09-25] MEDS ORDERED: ALBUMIN 5% 250 ML IV PRN (11:24)
[2018-09-25] MEDS ORDERED: D50W 25 GM/50 ML SYR IVP PRN (11:24)
[2018-09-25] MEDS ORDERED: ONDANSETRON DISINTEGRATING 4 MG TAB PO PRN (11:24)
[2018-09-25] MEDS ORDERED: METOCLOPRAMIDE 10 MG/2 ML VIAL IVP PRN (11:24)
[2018-09-25] MEDS ORDERED: ACETAMINOPHEN 650 MG SUPP PR PRN (11:24)
[2018-09-25] MEDS ORDERED: MAGNESIUM HYDROXIDE 30 ML UDCUP PO PRN (11:24)
[2018-09-25] MEDS ORDERED: KETOROLAC 15 MG/1 ML SDV IVP PRN (11:24)
[2018-09-25] MEDS ORDERED: LACTULOSE 20 GM/30 ML UDCUP PO PRN (11:24)
[2018-09-25] MEDS ORDERED: POLYETHYLENE GLYCOL 3350 17 GM PKT PO PRN (11:24)
[2018-09-25] MEDS ORDERED: SODIUM CL NASAL 45 ML BTL EACHNARE PRN (11:24)
[2018-09-25] MEDS ORDERED: CEPACOL LOZENGE PO PRN (11:24)
[2018-09-25] MEDS ORDERED: MEPERIDINE 25 MG/0.5 ML AMP IVP PRN (11:24)
[2018-09-25] MEDS ORDERED: fentaNYL 100 MCG/2 ML INJ IVP PRN (11:24)
[2018-09-25] MEDS ORDERED: niCARdipine/NACL 200 ML IV SCH (11:30)
[2018-09-25] MEDS ORDERED: INSULIN REGULAR HUMAN 100 UNIT in NS 100 ML IV SCH (11:30)
[2018-09-25] MEDS ORDERED: NS 1,000 ML IV SCH (11:30)
[2018-09-25] MEDS ORDERED: NALOXONE HCL 0.4 MG/ML INJ IVP PRN (11:48)
--- NOTE | 2018-09-25 11:49 | POSTANESTH ---
Post Anesthetic Evaluation Cardiovascular Status: Other, See Comment (stable on drips) Respiratory Status: Other, See Comment (stable on vent) Level of Consciousness/Mental Status: Other, See Comment (sedated) Pain Control: Adequate, Prn Tx Ordered Nausea/Vomiting Control: Adequate, Prn Tx Ordered Complications Possibly Related to Anesthesia: None Noted
[2018-09-25] MEDS: POTASSIUM Cl (KCl) 50 ML IV PRN ×5 (12:09→18:04)
--- NOTE | 2018-09-25 13:05 | CPEKG ---
Test Reason : OPEN Blood Pressure : / mmHG Vent. Rate : 106 BPM Atrial Rate : 106 BPM P-R Int : 210 ms QRS Dur : 103 ms QT Int : 364 ms P-R-T Axes : 098 -17 044 degrees QTc Int : 484 ms Sinus tachycardia Borderline prolonged RI interval Inferior ST elevations-consider acute or recent infarction Confirmed by Sai Toribio ([id number]) on 09/25/2018 1:04:51 PM Referred By: Garret Johnson Confirmed By:Sai Toribio
[2018-09-25] MEDS: ceFAZolin 2 GM/DEXTROSE 100 ML IV SCH ×2 (14:27→21:50)
--- NOTE | 2018-09-25 15:00 | GHP ---
[f rep st] HISTORY AND PHYSICAL DATE OF ADMISSION: 09/24/2018 REFERRING PHYSICIAN: Garret Johnson DO Pulmonary/Critical Care Consultation REASON FOR REFERRAL: Evaluation and management of respiratory failure and sleep apnea. HISTORY: The patient is a 63-year-old male with a history of atrial fibrillation, which recently became more persistent. He underwent cardioversion , which only lasted about 48-72 hours. He has been having increased fatigue and dyspnea. Dr. Graf had referred him to Dr. Johnson for mitral valve repair and a Ryna maze procedure. This was performed this morning. Intraoperatively, intraoperative findings confirmed a significantly reduced ejection fraction in about the 25% range. He had some hypotension at the end of the procedure, which prompted initiation of dopamine, and he remains on that. He was not extubated to postoperatively, and transported to the intensive care unit still intubated. PAST MEDICAL HISTORY: 1. Atrial fibrillation. Persistent for the past few months. 2. Reduced systolic function. A heart catheterization from yesterday found an ejection fraction of 25% to 30% with global hypokinesis. 3. Obstructive sleep apnea. The patient underwent a sleep study in August due to symptoms of snoring, witnessed apneas and nonrestorative sleep. He had mixed central and obstructive sleep apnea, with an AHI of 32.5 events per hour, of which 11/hour were central apneas. The study was done during exclusively nonsupine sleep. CPAP was not effective at reducing the AHI to less than 10 events/hour. He had frequent central apneas. He has not yet initiated therapy. 4. Gastroesophageal reflux. 5. Obesity. MEDICATIONS: At the time of admission included Eliquis, amiodarone, and ranitidine. ALLERGIES: None. SOCIAL HISTORY: The patient has never smoked. FAMILY HISTORY: Unremarkable. REVIEW OF SYSTEMS: A review of systems is unobtainable because the patient is still intubated/sedated. PHYSICAL EXAMINATION: GENERAL: The patient is intubated and sedated. VITAL SIGNS: Blood pressure is 103/67, with a heart rate of 96. He is afebrile. His temperature is 35.5. His oxygen saturations are 95% on 60% oxygen. HEENT: Normocephalic and atraumatic. No icterus. NECK: No JVD. Trachea is midline. CHEST: Clear to auscultation. CARDIAC: Regular rate and rhythm, without murmur. ABDOMEN: Soft and nontender. Bowel sounds are present. EXTREMITIES: No clubbing, cyanosis, or edema. NEURO: The patient is sedated and unresponsive. LABORATORY: Hemoglobin is 15.1, white blood count is 4.2. Chemistry group is unremarkable. A chest x-ray shows an appropriately placed endotracheal tube and central line. He has some increased interstitial markings, consistent with edema. Images reviewed by me. ASSESSMENT: 1. Status post mitral valve repair and Ryan maze procedure. The patient has fairly high oxygen needs, which could be related to his reduced ejection fraction in postoperative state with anesthesia. 2. Atrial fibrillation. The patient underwent a Ryan maze procedure, and is now in sinus rhythm. 3. Congestive heart failure with reduced systolic function. The reduced systolic function could be due to the increased atrial fibrillation burden recently. Viral or idiopathic cardiomyopathy is less likely. 4. Obstructive sleep apnea. This was in the severe range, with a component of central sleep apnea, as well. He had just a partial response to CPAP. He is not a candidate for adaptive servo-ventilation currently. It is possible that his sleep apnea will be more responsive to treatment with CPAP once his atrial fibrillation is addressed and hopefully, his ejection fraction improves. RECOMMENDATIONS: 1. Wean ventilator and extubate as tolerated. 2. Start autotitrating CPAP here in the hospital to help mitigate his sleep apnea. /[id number]/MODL MTDD
[2018-09-25] MEDS: SENNOSIDES/DOCUSATE SODIUM TAB PO SCH (20:52)
[2018-09-25] MEDS: ONDANSETRON 4 MG/2 ML VIAL IVP PRN (21:23)
[2018-09-26] MEDS ORDERED: FUROSEMIDE 20 MG/2 ML VIAL IV ONE (01:45)
[2018-09-26] MEDS ORDERED: ALBUMIN 5% 250 ML IV ONE (02:00)
[2018-09-26] MEDS: ceFAZolin 2 GM/DEXTROSE 100 ML IV SCH ×3 (05:53→22:22)
[2018-09-26 05:59] LABS: PLATELET COUNT 100 10^3/uL (150-400)
[2018-09-26] MEDS ORDERED: HEPARIN 5,000 UNIT/0.5 ML INJ SC SCH (06:00)
--- NOTE | 2018-09-26 06:51 | SOAPPROG ---
SOAP Progress Note Assessment/Plan: Assessment: POD#1 Ryan-Maze IV, MV rpr #28 Physio ring Longstanding persistent AF/chronically anticoagulated w Eliquis - Addressed with Maze. Postop rhythm sinus. AF prophylaxis with amio. Adjunctive BB as allowed by BP. Antithrombotic prophylaxis with Eliquis to resume tonight. Nonischemic cardiomyopathy - Global hypokinesis with depressed LV systolic function, likely exacerbated by AF/tachycardia. from CPB on dopa. Dose slowly weaned w stable hemodynamics and renal fx. Adequately diuresing moderate volume overload. Staggered intro of heart failure regimen as tolerated. Mitral regurgitation - Amenable to ring annuloplasty. Antithrombotic prophylaxis as per Maze. Acute expected thrombocytopenia - Stable. No transfusions required. No evidence bleeding. VTE prophylaxis with SCDs and sq hep pending transition to Eliquis. CORRIE, mixed - CPAP ordered for home but not yet available. Extubated yest afternoon without incident. Hospital CPAP not well tolerated. Pulm following. Prediabetes - Postop hyperglycemia managed with insulin gtt. Min correctional needs. Transition to SSI in progress. Morbid obesity - Delayed functional recovery anticipated. Await PT recs re rehab needs. Plan: Routine POD#1 orders re wires, drains, orals and mobility Wean dopa by 1 mcg per hour Colloid prn CVP < 8 Lasix prn CVP > 15 Stop sq hep after am dose and resume home Eliquis tonight Tx to SDU once off dopa 09/26/18 06:43 Subjective: Hurts to move. IS only 500. No dizziness. No nausea. Objective: Vital Signs Temp Pulse Resp BP Pulse Ox 36.6 C 78 21 H 134/72 H 96 09/26/18 06:00 09/26/18 06:00 09/26/18 06:00 09/26/18 06:00 09/26/18 06:00 Laboratory Results 09/26/18 05:37 09/26/18 05:37 09/25/18 09/26/18 09/27/18 05:59 05:59 05:59 Intake Total 662 2490 Output Total 350 1940 Balance 312 550 PT 14.2 SEC (12.0-15.0) 09/24/18 08:20 INR 1.15 (0.83-1.16) 09/24/18 08:20 Dopa down to 3 mcg w MAPs > 75 Holding SR 70s to 80s Stable 5 lpm suppl O2 req Balanced I/Os No sig CTOP CXR-> Hypoventilation, no PTX, min pulm vasc congestion, small left pleural effusion and compressive atelectasis Labs as expected. K likely iatrogenic Physical Exam - Physical Exam General Appearance: alert, mild distress (moving) Respiratory: crackles (bases), other (blakes x 2 y-d to pleurovac, serosang drainage, no air leak) Cardiac/Chest: regular rate, rhythm, other (Sternotomy CDI. A&V wires intact) Abdomen: normal bowel sounds, non-tender, soft Skin: warm/dry Extremities: swelling (1+ gen) ICD10 Worksheet Patient Problems: Problems Problem Status Onset Acute blood loss anemia Acute S/P ablation of atrial fibrillation Acute S/P ablation of atrial flutter Acute S/P mitral valve repair Acute Atrial fibrillation Acute Atrial fibrillation and flutter Acute Nausea Acute Palpitations Acute
[2018-09-26] MEDS ORDERED: FUROSEMIDE 20 MG/2 ML VIAL IVP ONE (07:45)
[2018-09-26] MEDS: ASPIRIN 81 MG CHEWABLE TAB PO SCH (08:09)
[2018-09-26] MEDS: PANTOPRAZOLE SODIUM 40 MG TAB PO SCH (08:10)
[2018-09-26] MEDS: SENNOSIDES/DOCUSATE SODIUM TAB PO SCH ×2 (08:10→21:50)
[2018-09-26] MEDS: AMIODARONE HCL 200 MG TAB PO SCH ×2 (08:10→21:50)
[2018-09-26] MEDS: HYDROCODONE/APAP 5/325 TAB PO PRN ×4 (08:10→21:49)
[2018-09-26] MEDS: MUPIROCIN 2% 22 GM OINT NS SCH ×2 (08:14→22:00)
[2018-09-26] MEDS ORDERED: PNEUMOCOCCAL 0.5ML VACCINE VIAL (PNEUMOVAX 23) IM ONE (08:50)
[2018-09-26] MEDS ORDERED: SODIUM ZIRCONIUM CYCLOSILICATE 10 GM PACKET PO ONE ×2 (11:00)
[2018-09-26] MEDS ORDERED: NS 1,000 ML IV ONE ×2 (11:00→14:00)
[2018-09-26] MEDS ORDERED: NS 500 ML IV ONE ×2 (11:00→12:00)
[2018-09-26] MEDS ORDERED: CALCIUM CHLORIDE 1 GM/10 ML INJ IVP ONE (11:00)
[2018-09-26] MEDS ORDERED: oxyCODONE IR 5 MG TAB PO PRN (12:01)
[2018-09-26] MEDS: INSULIN LISPRO 100 UNIT/ML SC SCH ×2 (12:23→17:32)
--- NOTE | 2018-09-26 13:32 | PDINTPN ---
Eye Surgeon Progress Note Assessment/Plan: Assessment: S/P MVr and Ryan Maze 09/25: Doing well post-op, weaned off DA. AF: Now in NSR Low EF: Likely due to tachycardia. CORRIE/CSA: Severe. Not yet on treatment. Intolerant of CPAP last night. Hyperglycemia: Well controlled with insulin gtt, now transitioned to SSI Plan: Trial of CPAP during the day to help acclimate. Activity as tolerated. Follow BSs on SSI. 09/26/18 13:33 Subjective: C/O post-op pain. Didn't sleep well due to pain. Couldn't tolerate CPAP, felt that the pressure was too high. Objective: Vital Signs Temp Pulse Resp BP Pulse Ox 37 C 67 18 120/77 96 09/26/18 08:00 09/26/18 12:00 09/26/18 12:00 09/26/18 12:00 09/26/18 12:00 Laboratory Results 09/26/18 05:37 09/25/18 09/26/18 09/27/18 05:59 05:59 05:59 Intake Total 662 2490 Output Total 350 1940 475 Balance 312 550 -475 PT 14.2 SEC (12.0-15.0) 09/24/18 08:20 INR 1.15 (0.83-1.16) 09/24/18 08:20 Chest x-ray: Hypoventilation/basilar atelectasis. Images reviewed by me. Physical Exam - Physical Exam General Appearance: alert, no apparent distress EENT: normal ENT inspection Neck: normal inspection Respiratory: lungs clear, normal breath sounds Cardiac/Chest: regular rate, rhythm, No edema Abdomen: normal bowel sounds, non-tender Skin: normal color, warm/dry Extremities: normal inspection Neuro/Psych: alert, normal mood/affect, oriented x 3 ICD10 Worksheet Patient Problems: Problems Problem Status Onset Acute blood loss anemia Acute S/P ablation of atrial fibrillation Acute S/P ablation of atrial flutter Acute S/P mitral valve repair Acute Atrial fibrillation Acute Atrial fibrillation and flutter Acute Nausea Acute Palpitations Acute
--- NOTE | 2018-09-26 15:16 | ASMTCASEMG ---
Living Arrangements What is your living Answers: With Spouse arrangement? Who do you live with? Type Of Residence What kind of residence do Answers: House you live in? Discharge Plan Comments Coordination Status Comments Notes: Patient is a 63yo male with AFIB who is being admitted in advance of scheduled surgery to complete risk stratification. Patient will go for a Ryan-Maze IV, mitral valve repair. OT/PT/cardiac rehab evals have been ordered for the patient. D/C plan TBD. CM following. Date Signed: 09/26/2018 03:15 PM Electronically Signed By:Nicki Francis LCSW
--- NOTE | 2018-09-26 15:18 | ASMTCMCOM ---
CM Note CM Note Notes: OT/PT are recommending home, no needs. Patient will d/c independently. CM available if d/c needs arise. Date Signed: 09/26/2018 03:16 PM Electronically Signed By:Nicki Francis LCSW
--- NOTE | 2018-09-26 20:34 | GOP ---
[f rep st] OPERATIVE REPORT DATE OF OPERATION: 09/25/2018 SURGEON: Garret Johnson DO J[employer] MACHINE OPERATOR: Raheel Borja PA-C ANESTHESIOLOGIST: Sanjeev Vargas MD PREOPERATIVE DIAGNOSIS: 1. Rlce-gl-gjpyxatl mitral insufficiency with marked left atrial enlargement and rheumatic valvular disease. 2. Long-standing persistent atrial fibrillation. POSTOPERATIVE DIAGNOSIS: 1. Owvg-hk-dqxngysa mitral insufficiency with marked left atrial enlargement and likely rheumatic valvular disease. 2. Long-standing persistent atrial fibrillation. PROCEDURE PERFORMED: 1. Biatrial Ryan-Maze IV with epicardial sensing and testing as well as radiofrequency and cryoablation. 2. Mitral ring annuloplasty with a #28 Physio II annuloplasty ring. FINDINGS: DESCRIPTION OF PROCEDURE: The patient was consented for surgery, brought to the operating room, intubated, and monitoring lines were placed. He was prepped and draped in sterile classical manner. Sternotomy was performed. Intraoperative LAUREN confirmed central regurgitation with annular dilatation and thickening of the leaflets with hockey-stick deformity. No significant calcification was identified. There was thickening in the subvalvular apparatus. He was bicavally cannulated with tapes. We then performed bilateral pulmonary vein sensing and testing with evidence of conduction at both entrance and exit without blockage on either side. We then encircled the right and left pulmonary veins, performed 3 overlapping lines per protocol, with the last of each ablation on each line at less than 5 seconds. We then tested both and we found complete evidence of entrance and exit block. At that point, we then arrested the heart. We excised the tip of the left atrial appendage and performed ablation across the Coumadin ridge into the left superior pulmonary vein. A 40 mm atrial clip was then placed. We marked the terminus of the coronary on the coronary sinus. We then exposed the mitral valve through the right superior pulmonary vein. We performed our cryoablation transmurally from the end of the inferior incision across the coronary sinus contiguous with the atrial wall. We then overlapped that with an internal isthmus line, avoiding the coronary arteries across the isthmus. We then performed roof and floor lesions predominantly with incisions almost to the left pulmonary veins with the remainder of it performed with radiofrequency overlapping the left pulmonary vein ablation. We then performed an evaluation of the mitral valve. It was somewhat thickened, consistent with rheumatic fever. There was mild thickening, mild effusion in the subvalvular apparatus, but still mobile leaflets. I felt that because it was a rather small valve, a ring repair would be better. We therefore sized him for a 28 mm Physio II annuloplasty ring, which completely eliminated the regurgitation with a good centimeter of leaflet overlap on the blue dye test. Left atrium was closed with a sump across the mitral valve. Rewarming was begun. We then opened the right atrium with an inferiorly displaced vertical atriotomy. This was done with the clamp off suction on the ascending aortic vent and LV sump. We then performed the free wall superior and inferior vena caval lines with radiofrequency and cryoablation across the isthmus with blood flow in the right coronary. The right atrium was closed. The patient was then de-aired through the apex and aortic vent and LV sump, and no further air was identified. The sump was removed. He was weaned from bypass in Trendelenburg. Heparin was reversed with protamine. Cannulas removed and oversewn. Echo revealed no regurgitation and no JOSE. LV function appeared to be unchanged from preoperatively at 25% to 30% with marked LVH. The patient remained hemodynamically stable. The cannula was removed and oversewn. Four pacing wires, 1 left pleural and 1 mediastinal drain were placed. The thymic fat and pericardium were closed. Chest was closed in standard fashion. The patient was returned to ICU in stable condition. /[id number]/MODL MTDD
[2018-09-26] MEDS: APIXABAN 5 MG TAB PO SCH (21:50)
[2018-09-27] MEDS: HYDROCODONE/APAP 5/325 TAB PO PRN ×3 (02:12→20:22)
[2018-09-27] MEDS: ONDANSETRON 4 MG/2 ML VIAL IVP PRN (02:16)
[2018-09-27 05:38] LABS: PLATELET COUNT 74 10^3/uL (150-400)
--- NOTE | 2018-09-27 07:13 | SOAPPROG ---
SOAP Progress Note Assessment/Plan: POD #2: Ryan-Maze IV, MV repair with #28 Physio ring Longstanding persistent AF s/p Ryan-MAze IV - Postop rhythm sinus - AL/FC out, CTs at removal criteria - AF prophylaxis with amiodarone, adjunctive BB as allowed by BP - Thromboprophylaxis as per pre-op with Eliquis Mitral regurgitation, mild-moderate s/p repair - Thromboprophylaxis as per Maze Post-op hyperkalemia - Normal renal function - Continue supportive care, monitor Nonischemic cardiomyopathy, LVEF 25-30% - Off pressors - Lasix/beta-marco as tolerated Acute post-op blood loss anemia - Stable without the need for transfusions DVT prophylaxis - SCDs Disposition - Likely PCU later today - Possible need for SNF d/t deconditioning/morbid obesity Subjective: Feels tired. Pain well-controlled. Denies SOB. Objective: Vital Signs Temp Pulse Resp BP Pulse Ox 36.5 C 65 24 H 123/71 H 92 09/27/18 04:00 09/27/18 06:26 09/27/18 06:26 09/27/18 06:26 09/27/18 06:26 Laboratory Results 09/27/18 05:26 09/27/18 05:26 09/26/18 09/27/18 09/28/18 05:59 05:59 05:59 Intake Total 2490 4578 Output Total 1940 1735 Balance 550 2843 PT 14.2 SEC (12.0-15.0) 09/24/18 08:20 INR 1.15 (0.83-1.16) 09/24/18 08:20 Physical Exam - Physical Exam General Appearance: WD/WN, alert, no apparent distress, obese EENT: No scleral icterus (R), No scleral icterus (L) Neck: normal inspection Respiratory: No respiratory distress Cardiac/Chest: regular rate, rhythm Abdomen: non-tender, soft, No distended Skin: normal color, warm/dry Extremities: pedal edema Neuro/Psych: no motor/sensory deficits, alert, normal mood/affect, oriented x 3 ICD10 Worksheet Patient Problems: Problems Problem Status Onset Acute blood loss anemia Acute S/P ablation of atrial fibrillation Acute S/P ablation of atrial flutter Acute S/P mitral valve repair Acute Atrial fibrillation Acute Atrial fibrillation and flutter Acute Nausea Acute Palpitations Acute
[2018-09-27] MEDS: APIXABAN 5 MG TAB PO SCH ×2 (07:55→20:22)
[2018-09-27] MEDS: AMIODARONE HCL 200 MG TAB PO SCH ×2 (07:55→20:22)
[2018-09-27] MEDS: ASPIRIN 81 MG CHEWABLE TAB PO SCH (07:55)
[2018-09-27] MEDS: PANTOPRAZOLE SODIUM 40 MG TAB PO SCH (07:55)
[2018-09-27] MEDS: SENNOSIDES/DOCUSATE SODIUM TAB PO SCH ×2 (08:21→20:24)
[2018-09-27] MEDS ORDERED: traMADol 50 MG TAB PO PRN (09:44)
[2018-09-27] MEDS: MUPIROCIN 2% 22 GM OINT NS SCH (11:15)
[2018-09-27] MEDS ORDERED: FUROSEMIDE 20 MG/2 ML VIAL IVP ONE (13:26)
[2018-09-27] MEDS: ACETAMINOPHEN 325 MG TAB PO PRN (17:46)
--- NOTE | 2018-09-28 07:45 | SOAPPROG ---
SOAP Progress Note Assessment/Plan: POD #3: s/p Ryan-Maze IV, MV repair with #28 Physio ring Longstanding persistent AF s/p Ryan-MAze IV - Postop SR - AL/FC/CTs out - AF prophylaxis with amiodarone, adjunctive BB as allowed by BP/HR - Thromboprophylaxis as per pre-op with Eliquis Mitral regurgitation, mild-moderate s/p repair - Thromboprophylaxis as per Maze - Post-op TTE tomorrow AM Post-op hyperkalemia - Resolved Nonischemic cardiomyopathy, LVEF 25-30% - Off pressors - Lasix/beta-marco as tolerated Acute post-op blood loss anemia - Stable without the need for transfusions DVT prophylaxis - SCDs Disposition - PCU later today - Saturday Subjective: Couldn't sleep last night d/t strange dreams. Pain well-controlled. Denies SOB. Objective: Vital Signs Temp Pulse Resp BP Pulse Ox 36.7 C 66 18 131/76 H 97 09/28/18 07:00 09/28/18 07:00 09/28/18 07:00 09/28/18 07:00 09/28/18 07:00 Laboratory Results 09/28/18 05:40 09/28/18 05:40 09/27/18 09/28/18 09/29/18 05:59 05:59 05:59 Intake Total 4578 1300 Output Total 1735 1750 Balance 2843 -450 PT 14.2 SEC (12.0-15.0) 09/24/18 08:20 INR 1.15 (0.83-1.16) 09/24/18 08:20 Physical Exam - Physical Exam General Appearance: WD/WN, alert, no apparent distress EENT: No scleral icterus (R), No scleral icterus (L) Neck: normal inspection Respiratory: No respiratory distress Cardiac/Chest: regular rate, rhythm Abdomen: non-tender, soft, No distended Skin: normal color, warm/dry Extremities: No pedal edema Neuro/Psych: no motor/sensory deficits, alert, normal mood/affect, oriented x 3 ICD10 Worksheet Patient Problems: Problems Problem Status Onset Acute blood loss anemia Acute S/P ablation of atrial fibrillation Acute S/P ablation of atrial flutter Acute S/P mitral valve repair Acute Atrial fibrillation Acute Atrial fibrillation and flutter Acute Nausea Acute Palpitations Acute
[2018-09-28] MEDS ORDERED: FUROSEMIDE 20 MG/2 ML VIAL IVP ONE (08:00)
[2018-09-28] MEDS: ASPIRIN 81 MG CHEWABLE TAB PO SCH (08:52)
[2018-09-28] MEDS: SENNOSIDES/DOCUSATE SODIUM TAB PO SCH ×2 (08:52→23:57)
[2018-09-28] MEDS: APIXABAN 5 MG TAB PO SCH ×2 (08:52→21:18)
[2018-09-28] MEDS: PANTOPRAZOLE SODIUM 40 MG TAB PO SCH (08:53)
[2018-09-28] MEDS: AMIODARONE HCL 200 MG TAB PO SCH ×2 (08:53→21:18)
--- NOTE | 2018-09-28 09:54 | ASMTCMCOM ---
CM Note CM Note Notes: Pts case discussed w/ ESTIVEN Yeung. Gamal reports that pt may need to go to a SNF. CM met w/ pt and his parents for dispo planning. Pt reports that he cannot go home and feels weak. CM presented pt and parents w/ senior blue book. Pt lives in [place] and would like referrals to be sent to [facility] and [facility]. CM asking SNFs to run benefits and to check bed availabilities. Non triggering pasrr completed. CM to follow. Plan: SNF Date Signed: 09/28/2018 09:53 AM Electronically Signed By:JERZY Perez
[2018-09-28] MEDS: HYDROCODONE/APAP 5/325 TAB PO PRN ×2 (10:28→18:49)
[2018-09-28] MEDS: ONDANSETRON 4 MG/2 ML VIAL IVP PRN (18:49)
--- NOTE | 2018-09-29 07:07 | SOAPPROG ---
SODANNA Progress Note Assessment/Plan: POD #4: s/p Ryan-Maze IV, MV repair with #28 Physio ring Longstanding persistent AF s/p Ryan-MAze IV - Postop SR - AL/FC/CTs out - Temporary epicardial PWs to be cut either today or tomorrow - AF prophylaxis with amiodarone, adjunctive BB as allowed by BP/HR - Thromboprophylaxis as per pre-op with Eliquis Mitral regurgitation, mild-moderate s/p repair - Thromboprophylaxis as per Maze - Post-op routine TTE today Post-op hyperkalemia - Resolved Post-op left effusion - To be evaluated by radiology for drainage today Nonischemic cardiomyopathy, LVEF 25-30% - Off pressors - Lasix/beta-marco as tolerated Acute post-op blood loss anemia - Stable without the need for transfusions DVT prophylaxis - SCDs Disposition - PCU - SNF Saturday Subjective: Didn't sleep last night. Denies pain/SOB. Insistent on not being discharged home as his won't be able to help him. Objective: Vital Signs Temp Pulse Resp BP Pulse Ox 36.5 C 64 16 123/74 H 94 09/29/18 07:01 09/29/18 07:01 09/29/18 07:01 09/29/18 07:01 09/29/18 07:01 Laboratory Results 09/28/18 05:40 09/29/18 02:45 09/28/18 09/29/18 09/30/18 05:59 05:59 05:59 Intake Total 1300 840 Output Total 1750 2200 Balance -450 -1360 PT 14.2 SEC (12.0-15.0) 09/24/18 08:20 INR 1.15 (0.83-1.16) 09/24/18 08:20 Physical Exam - Physical Exam General Appearance: WD/WN, alert, no apparent distress, obese EENT: No scleral icterus (R), No scleral icterus (L) Neck: normal inspection Respiratory: No respiratory distress Cardiac/Chest: regular rate, rhythm Abdomen: non-tender, soft, No distended Skin: normal color, warm/dry Extremities: pedal edema Neuro/Psych: no motor/sensory deficits, alert, normal mood/affect, oriented x 3 ICD10 Worksheet Patient Problems: Problems Problem Status Onset Acute blood loss anemia Acute S/P ablation of atrial fibrillation Acute S/P ablation of atrial flutter Acute S/P mitral valve repair Acute Atrial fibrillation Acute Atrial fibrillation and flutter Acute Nausea Acute Palpitations Acute
[2018-09-29 08:13] LABS: INR 1.55 (0.83-1.16); PROTIME(PATIENT) 17.9 SEC (12.0-15.0)
[2018-09-29] MEDS: FUROSEMIDE 40 MG TAB PO SCH (08:17)
[2018-09-29] MEDS: AMIODARONE HCL 200 MG TAB PO SCH ×2 (08:17→21:10)
[2018-09-29] MEDS: PANTOPRAZOLE SODIUM 40 MG TAB PO SCH (08:17)
[2018-09-29] MEDS: POTASSIUM CL 20 MEQ TAB PO SCH (08:17)
[2018-09-29] MEDS: ASPIRIN 81 MG CHEWABLE TAB PO SCH (08:23)
[2018-09-29] MEDS: SENNOSIDES/DOCUSATE SODIUM TAB PO SCH (08:31)
[2018-09-29] MEDS: FUROSEMIDE 40 MG TAB PO ONE ×2 (08:31→08:56)
[2018-09-29] MEDS: APIXABAN 5 MG TAB PO SCH ×2 (08:47→21:10)
[2018-09-29] MEDS ORDERED: LIDOCAINE 1% 300 MG/30 ML SDV ONE (12:04)
[2018-09-29] MEDS: ACETAMINOPHEN 325 MG TAB PO PRN (14:58)
--- NOTE | 2018-09-29 16:33 | ASMTCMCOM ---
CM Note CM Note Notes: CM spoke to ESTIVNE Yeung. CM spoke to pts Nancy (P#: [phone]). Nancy went and toured [facility] today. Nancy would like [facility] to start getting auth. CM communicated this w/ [facility] along w/ sending over updates. CM to follow. Plan: [facility] SNF Date Signed: 09/29/2018 04:32 PM Electronically Signed By:JERZY Perez
[2018-09-29] MEDS: HYDROCODONE/APAP 5/325 TAB PO PRN (21:10)
[2018-09-30] MEDS: ACETAMINOPHEN 325 MG TAB PO PRN (03:24)
--- NOTE | 2018-09-30 07:14 | SOAPPROG ---
SOAP Progress Note Assessment/Plan: Assessment: POD#5 Ryan-Maze IV, MV rpr #28 Physio ring PPD#1 US guided left thoracentesis for 250 ml Longstanding persistent AF/chronically anticoagulated w Eliquis - Addressed with Maze. Postop rhythm sinus with 1st degree AVB. Rates predominantly 60s. AF prophylaxis with amio alone. Antithrombotic prophylaxis with Eliquis. Nonischemic cardiomyopathy - Global hypokinesis with depressed LV systolic function, likely exacerbated by AF/tachycardia. from CPB on dopa. Dose slowly weaned w stable hemodynamics and renal fx. Transient hyperkalemia responsive to supportive therapy. Actively diuresing moderate volume overload. CTs out. Small residual left pleural effusion evacuated by thoracentesis. Staggered intro of heart failure regimen as tolerated. Mitral regurgitation - Amenable to ring annuloplasty. Antithrombotic prophylaxis as per Maze. Acute expected thrombocytopenia - Stable. No transfusions required. VTE prophylaxis with SCDs and Eliquis. CORRIE, mixed - CPAP poorly tolerated and planning to trial oral appliance. Extubated afternoon of surgery without incident. Hospital CPAP not well tolerated and only supported with O2. Prediabetes - Postop hyperglycemia managed with insulin gtt. Transtitioned to SSI. Min correctional needs and accuchecks discontinued. Morbid obesity - Delayed functional recovery anticipated. Skilled for SNF by PT. Plan: Cut TCPWs Relax diuresis Start low dose ACEI Baseline postop echo Dispo - anticipate tx to SNF ([facility]) this afternoon 09/30/18 07:14 Subjective: Doing ok. Comfortable leaving hospital. No acute concerns. Objective: Vital Signs Temp Pulse Resp BP Pulse Ox 36.8 C 61 20 118/77 98 09/30/18 07:04 09/30/18 07:04 09/30/18 07:04 09/30/18 07:04 09/30/18 07:04 Laboratory Results 09/28/18 05:40 09/29/18 02:45 09/29/18 09/30/18 10/01/18 05:59 05:59 05:59 Intake Total 840 875 Output Total 2200 1600 Balance -1360 -725 PT 17.9 SEC (12.0-15.0) H 09/29/18 07:40 INR 1.55 (0.83-1.16) H 09/29/18 07:40 Holding SR/SB Uptrending SBPs Excellent sats on 4 lpm O2, likely could be weaned Vigorous diuresis on 40 mg lasix, now below admit wt Physical Exam - Physical Exam General Appearance: alert, no apparent distress Respiratory: lungs clear (grossly) Cardiac/Chest: regular rate, rhythm, other (Sternotomy CDI. A&V wires clipped at skin) Abdomen: non-tender, soft Skin: warm/dry Extremities: swelling (trace dependent) ICD10 Worksheet Patient Problems: Problems Problem Status Onset Acute blood loss anemia Acute S/P ablation of atrial fibrillation Acute S/P ablation of atrial flutter Acute S/P mitral valve repair Acute Atrial fibrillation Acute Atrial fibrillation and flutter Acute Nausea Acute Palpitations Acute
[2018-09-30] MEDS: POTASSIUM CL 20 MEQ TAB PO SCH (07:58)
[2018-09-30] MEDS: HYDROCODONE/APAP 5/325 TAB PO PRN (07:58)
[2018-09-30] MEDS: ASPIRIN 81 MG CHEWABLE TAB PO SCH (07:58)
[2018-09-30] MEDS: APIXABAN 5 MG TAB PO SCH (07:58)
[2018-09-30] MEDS: FUROSEMIDE 40 MG TAB PO SCH (07:58)
[2018-09-30] MEDS: AMIODARONE HCL 200 MG TAB PO SCH (07:58)
[2018-09-30] MEDS: PANTOPRAZOLE SODIUM 40 MG TAB PO SCH (07:59)
[2018-09-30] MEDS ORDERED: FUROSEMIDE 20 MG TAB PO SCH (09:00)
[2018-09-30] MEDS ORDERED: LISINOPRIL 2.5 MG TAB PO SCH ×2 (09:00→21:00)
--- NOTE | 2018-09-30 09:52 | PDIAF ---
- Diagnosis Diagnosis: AF, MR, NICM s/p Ryan-Maze IV and MV rpr Code Status: Full Code - Medication Management Additional Medication Instructions: Hold lisinopril for SBP < 110. Decrease amiodarone to 200 mg daily on 10/04 Discharge Medications: electronically signed and located in the Home Medication List. PICC Care - Routine: N/A - Orders Services needed: Registered Nurse (cardiorespiratory and wound monitoring), Physical Therapy (2x daily), Occupational Therapy (1x daily) Isolation Type: None Oxygen: daytime prn SpO2 < 90%; 2Lpm continuously with sleep Diet Recommendation: ADA 2000 consistent carb, fluid restriction (use comment for amount) (2 liters daily) Diet Texture: Regular Texture Diet Weigh Patient: daily Becerra: Not applicable Wound Care Instructions: see below Activity/Weight Bearing Restrictions: sternal precautions x 3 more weeks Additional Instructions: Enroll in phase [address] classes [address] [facility] once released from [facility]. Sternal precautions x 3 more weeks. Avoid lifting > 10lbs with an outstretched arm. Avoid push/pull activities. No driving until cleared by surgery. Cleanse wounds once daily with soap and water. Avoid underwater immersion (pool , hot tub, bath) until scabs off. Ok to leave all wounds open to air. Avoid creams or ointments until scabs off. Elevate low legs at rest. Avoid prolonged standing or dangling. Log daily vital signs: weight, resting heart rate over 1 minute, blood pressure , +/- pulse oximetry. Call [facility] for overnight weight gain > 2lbs, weekly gain > 5lbs or worsening leg swelling. Call [facility] for resting heart rate > 120 or < 60 OR for systolic blood pressure consistently < 90 or > 150. Target oxygen saturation > 89%. Please obtain a chest xray prior to surgical appointment. Use requisition form attached to appointment card. Chest x-rays don't require an appointment. Go to the Emergency Room entrance at the [facility] location. Sign in at the computer kiosk in the entryway. You will be given a number & may sit in the waiting area until called. You will be registered and directed to Imaging on the 1st floor. This process can take up to an hour. Please allow at least 30 min before your appt to get x-ray taken. Ok to use [id number] medications for iron supplementation, bowel function or pain. Consider Tylenol 500-650 mg with meals and before bed. Max daily dose of Tylenol 3000 mg. Each Ulen contains 325 mg of Tylenol. Consider Ibuprofen 400-600mg up to 3x daily with meals. Max daily dose of Ibuprofen 1800 mg. Regular use not to exceed 1 week. Lifelong antibiotic prophylaxis prior to dental, respiratory tract, or skin/ soft tissue procedures. - Labs/Radiology BMP Date: 10/03/18 (results to [facility]) CBC w/diff Date: 10/03/18 (results to [facility]) Imaging Orders: CXR prior to surgical appointment Call or Fax Lab and Imaging Results to: Call Dr Johnson's nurse Lynn Trevino - Follow Up Care Current Providers and Referrals: Garret Johnson DO [Doctor of Osteopathy] - 10/07/18 9:45 am Eddie Amaya MD [Primary Care Provider] -
--- NOTE | 2018-09-30 10:04 | PDDCSUM ---
Discharge Summary Discharge Summary: DATE OF ADMISSION: 09/24/18 DATE OF DISCHARGE: 09/30/18 DISPOSITION: Transferred to [facility] [place] PRINCIPAL DISCHARGE DIAGNOSES: 1. Coronary atherosclerosis 2. Longstanding persistent atrial fibrillation treated with Ryan-Maze IV procedure 3. Rheumatic mitral valve regurgitation treated with ring annuloplasty 4. Chronic anticoagulation with Eliquis 5. Nonischemic cardiomyopathy 6. Acute expected blood loss anemia with thrombocytopenia 7. Postoperative left pleural effusion evacuated by thoracentesis FOLLOW UP APPOINTMENTS: 1. CV surgery: with Dr Johnson at [facility] on 10/07 at 9:45 am. 2. Cardiology: with Dr Graf at [facility] within 4-6 weeks. Appointment to be established during surgical visit. FOLLOW UP TESTIN. CBC and BMP on 10/03. Results to [facility]. 2. CXR prior to surgical appointment. ALLERGIES/SENSITIVITIES: NKDA DISCHARGE MEDICATIONS: see medical administration record for full details Essentially as on admission (Eliquis 5 mg BID, Zantac 300 mg daily prn) with the following adjustments: Increase amiodarone to 200 mg BID thru 10/03, then decrease back to 200 mg daily NEW prescriptions: 1. ASA 81 mg daily x 2 months (thru 11/26/18) 2. Lasix 20 mg daily 3. Lisinopril 2.5 mg HS. Hold for SBP < 110. 4. [place] 5/325 one tab q 4-6 hrs prn incisional discomfort 5. Oxygen 2 lpm continuously with sleep. Daytime use prn SpO2 < 90%. CONSULTANTS: Pulmonology/critical care ([place]) PROCEDURES/IMAGIN/8 (Bruce): Left heart catheterization with selective coronary angiography and left ventriculogram. Access right radial artery. Findings: Right dominant coronary system. Diffuse luminal irregularities. LVEDP 22. LVEF 25-30%. 09/24 Carotid Ultrasound: normal 09/24 (Bruce): Transthoracic echocardiogram 09/25 (Elizabeth): Mitral ring annuloplasty with a 28 mm Patel Physio II ring. Ryan- Maze IV procedure utilizing bipolar radiofrequency and cryothermy for ablative lesions and an AtriClip for exclusion of the left atrial appendage. 09/29 (Ángel): Ultrasound guided left thoracentesis with removal of 250 ml fluid 09/30 Transthoracic echocardiogram HISTORY OF PRESENT ILLNESS: 63 yo male with an increasing burden of symptomatic atrial fibrillation associated with moderate MR and declining LV systolic fx, admitted in advance of scheduled surgery to complete risk stratification. Preop imaging negative for obstructive coronary or carotid disease but remarkable for moderate LVSD with an elevated EDP. 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 Longstanding persistent AF/chronically anticoagulated w Eliquis - Addressed with Maze procedure. Postop rhythm sinus with 1st degree AVB. Heart rates predominantly in the 60s and AF prophylaxis undertaken with amio alone. Antithrombotic prophylaxis with Eliquis resumed. 2. Nonischemic cardiomyopathy - Global hypokinesis with depressed LV systolic function, likely exacerbated by AF/tachycardia. No prolonged pressor support. Moderate volume overload actively diuresed with stable renal fx. Transient hyperkalemia responsive to corrective measures. Small left pleural effusion evacuated by thoracentesis. BB avoided d/t bradycardia. Sufficient BP to initiate ACEI. 3. Mitral regurgitation - Central regurgitation amenable to ring annuloplasty. Leaflets and subvalvular apparatus noted to have degenerative changes c/w rheumatic disease. Antithrombotic prophylaxis as per Maze. 4. Acute expected blood loss anemia with thrombocytopenia - Stable. No transfusions required. H/H > 10/35 maintained. 5. CORRIE, mixed - Recent diagnosis. CPAP poorly tolerated and awaiting trial of oral appliance. Extubated afternoon of surgery without incident. Hospital CPAP not well tolerated and only supported with O2. 6. Prediabetes - Postop hyperglycemia managed with insulin gtt. Transtitioned to SSI. Min correctional needs and accuchecks discontinued. 7. Morbid obesity - Delayed functional recovery and skilled for SNF by PT.
--- NOTE | 2018-09-30 10:18 | ASDISCHSUM ---
Discharge Information Plan Status:SNF Medically Cleared to Leave:09/30/2018 Discharge Date:09/30/2018 CM D/C Disposition:Correction Facility ADT D/C Disposition:Correction Facility Projected Discharge Date:09/28/2018 11:00 AM Transportation at D/C:Wheelchair Van Discharge Delay Reason: Follow-Up Date:09/28/2018 11:00 AM Discharge Slot: Final Diagnosis: Placement Information Referral Type:*Jail/SNF Referral ID:[id number] Provider Name:Amelie jackson [place] Address 1:[address] Address 2: City:[place] Selection Factors: State:[place] Patient Contact Information Contact Name:EMELIA Relationship: Address:[address] Work Phone: [facility]:JONES Alternate Phone: State/Zip Code:[place] [address] Email: Financial Information Financial Class:HMO and PPO Plans Primary Plan Desc:[employer]OMAR[employer] Primary Plan Number:[id number] Secondary Plan Desc: Secondary Plan Number: Assessment Information LACE LACE Length of stay for Answers: 4-6 days current admission Acuity / Level of Answers: Yes Care: Did the patient have an inpatient admission? Comorbidities - select Answers: Coronary Artery Disease all that apply Opioid dependence / Chronic pain Other Notes: AFib; Obesity # of Emergency department Answers: 0 visits in the last 6 months Score: 14 Date Signed: 09/30/2018 10:15 AM Electronically Signed By:Laura Hamilton RN [facility] Initial CM Assessment Living Arrangements What is your living Answers: With Spouse arrangement? Who do you live with? Type Of Residence What kind of residence do Answers: House you live in? Discharge Plan Comments Coordination Status Comments Notes: Patient is a 63yo male with AFIB who is being admitted in advance of scheduled surgery to complete risk stratification. Patient will go for a Ryan-Maze IV, mitral valve repair. OT/PT/cardiac rehab evals have been ordered for the patient. D/C plan TBD. CM following. Date Signed: 09/26/2018 03:15 PM Electronically Signed By:Nicki Francis LCSW [facility] CM Progress Note CM Note CM Note Notes: OT/PT are recommending home, no needs. Patient will d/c independently. CM available if d/c needs arise. Date Signed: 09/26/2018 03:16 PM Electronically Signed By:Nicki Francis LCSW [facility] IVETTE Progress Note CM Note CM Note Notes: Pts case discussed w/ ESTIVEN Yeung. Gamal reports that pt may need to go to a SNF. CM met w/ pt and his parents for dispo planning. Pt reports that he cannot go home and feels weak. CM presented pt and parents w/ blue mario. Pt lives in [place] and would like referrals to be sent to [facility] and [facility]. CM asking SNFs to run benefits and to check bed availabilities. Non triggering pasrr completed. CM to follow. Plan: SNF Date Signed: 09/28/2018 09:53 AM Electronically Signed By:JERZY Perez [facility] Progress Note CM Note CM Note Notes: CM spoke to ESTIVEN Yeung. CM spoke to pts Nancy (P#: [phone]). Nancy went and toured [facility] today. Nancy would like [facility] to start getting auth. IVETTE communicated this w/ [facility] along w/ sending over updates. CM to follow. Plan: [facility] SNF Date Signed: 09/29/2018 04:32 PM Electronically Signed By:JERZY Perez Case Management Discharge Plan Note Case Management Discharge Discharge Order Complete? Answers: Yes Patient to Obtain Answers: Other Notes: [facility] in [place] Medications Transportation Arranged Answers: Other Notes: w/c with O2 arranged by Carri at [facility] Transport will Pick (Date 09/30/2018 01:30 PM & Time) Faxed Final Orders Answers: Yes Notes: to [facility] Agency/Facility Transfer Answers: Yes Notes: to [facility] Report Printed & Faxed to Receiving Agency Discharge Comments Notes: 09/30/2018 Case Management Note Faxed final orders to [facility] in [place]. Carri from [facility] arranged transport for [address] brain picker. Provided RN report number. Case Management d/c poc: [facility] in [place] SNF rehab. Date Signed: 09/30/2018 10:17 AM Electronically Signed By:Laura Hamilton RN Intervention Information Intervention Type:*Incorrect Registration Date of Service:09/24/2018 12:41 PM Patient Type:Observation Staff Member:Lynsey Byrnes Hours: Discipline: Severity: Comment:
--- NOTE | 2018-09-30 10:19 | ASMTDCNOTE ---
Case Management Discharge Discharge Order Complete? Answers: Yes Patient to Obtain Answers: Other Notes: [facility] in [place] Medications Transportation Arranged Answers: Other Notes: w/c with O2 arranged by Carri at [facility] Transport will Pick (Date 09/30/2018 01:30 PM & Time) Faxed Final Orders Answers: Yes Notes: to [facility] Agency/Facility Transfer Answers: Yes Notes: to [facility] Report Printed & Faxed to Receiving Agency Discharge Comments Notes: 09/30/2018 Case Management Note Faxed final orders to [facility] in [place]. Carri from [facility] arranged transport for [address] pickler. Provided RN report number. Case Management d/c poc: [facility] in [place] SNF rehab. Date Signed: 09/30/2018 10:17 AM Electronically Signed By:Laura Hamilton RN
[2018-09-30 12:10] VITALS: BP 111/78
[2018-10-01] MEDS ORDERED: FUROSEMIDE 20 MG TAB PO SCH (09:00)
== END 2018-09-30 13:10 | DRG 217 ==
LOC: FCATH 07:56 → F2W 11:38 → OBSVTOIN 11:38 → F2W 13:38 → F2N 09-25 06:43 → F2W 09-27 13:10
PROVIDERS: ADMIT Internal Medicine Interventional Cardiology; ATTEND Thoracic Surgery (Cardiothoracic Vascular Surgery)
PROC: B2111ZZ Fluoroscopy of Multiple Coronary Arteries using Low Osmolar Contrast (ICD-10-PCS; 2018-09-24)
PROC: 4A023N7 Measurement of Cardiac Sampling and Pressure, Left Heart, Percutaneous Approach (ICD-10-PCS; 2018-09-24)
PROC: B2151ZZ Fluoroscopy of Left Heart using Low Osmolar Contrast (ICD-10-PCS; 2018-09-24)
PROC: 02580ZZ Destruction of Conduction Mechanism, Open Approach (ICD-10-PCS; principal; 2018-09-25 07:15)
PROC: 5A1221Z Performance of Cardiac Output, Continuous (ICD-10-PCS; principal; 2018-09-25 07:15)
PROC: 02UG0JZ Supplement Mitral Valve with Synthetic Substitute, Open Approach (ICD-10-PCS; principal; 2018-09-25 07:15)
PROC: 0W9B3ZZ Drainage of Left Pleural Cavity, Percutaneous Approach (ICD-10-PCS; 2018-09-29)
DX: I05.1 Rheumatic mitral insufficiency (principal); I25.10 Atherosclerotic heart disease of native coronary artery without angina pectoris; I48.1 Persistent atrial fibrillation; D62 Acute posthemorrhagic anemia; I42.8 Other cardiomyopathies; J90 Pleural effusion, not elsewhere classified; D69.6 Thrombocytopenia, unspecified; G47.33 Obstructive sleep apnea (adult) (pediatric); K21.9 Gastro-esophageal reflux disease without esophagitis; R73.03 Prediabetes; E66.01 Morbid (severe) obesity due to excess calories; Z68.36 Body mass index [BMI] 36.0-36.9, adult; Z79.01 Long term (current) use of anticoagulants; Z96.653 Presence of artificial knee joint, bilateral
CPT/HCPCS: 82435-PO; 82565-PO; 82947-PO; 83605-ER; 84132-PO; 84295-PO; 84520-PO; 85014-ER; 97116-GP; 97161-GP; 97166-GO; 97530-GO; 97530-GP; 97535-GO; C1769; G0009; J0153; J0171; J0282; J0330; J0690; J1265; J1644; J1815; J1885; J1940; J2001; J2150; J2250; J2260; J2270; J2370; J2405; J2704; J2720; J2765; J2930; J3010; J3475; J3480; P9041; Q9967

== ENCOUNTER → 2018-10-07 | Outpatient (CLI) | payer OTHER | LOC: FIMAGING 09:06 | PROVIDERS: ATTEND Thoracic Surgery (Cardiothoracic Vascular Surgery) | DX: Z48.812 Encounter for surgical aftercare following surgery on the circulatory system (principal); J90 Pleural effusion, not elsewhere classified ==

== ENCOUNTER → 2018-10-14 | Outpatient (CLI) | payer OTHER | LOC: FIMAGING 11:07 ==